=== PATIENT | female | born 1970 | race Caucasian/White ===

== ENCOUNTER → 2019-04-14 | Outpatient (CLI) | payer SELFPAY ==
[~2019-04-14] MED LIST: CATHETER FLUSH 10 ML SYR IV PRN; HOLD METFORMIN - RECEIVED CONTRAST 20 ML VIAL IV SCH; IOHEXOL 350 MG/ML 100 ML (OMNIPAQUE 350) VIAL IV ONE; NS 100 ML (IVPB) BAG IV ONE
--- NOTE | 2019-04-14 14:15 | Diagnostic Imaging Report ---
PROCEDURE: CT abdomen with and without contrast. TECHNIQUE: Multiple contiguous axial CT images of the abdomen were obtained prior to and after intravenous administration of iodinated contrast. Auto Exposure Controls were utilized during the CT exam to meet ALARA standards for radiation dose reduction. INDICATION: Liver mass found on outside ultrasound. Patient also complains of generalized abdominal pain. COMPARISON: No prior studies are available for comparison. FINDINGS: The lung bases are clear apart from minimal scarring or atelectasis in the right middle lobe and lingula. Liver demonstrates some generalized low density consistent with hepatic steatosis. Left lobe of the liver does show hyperdense lesion measuring 7 mm in size. Right lobe anteriorly contains a 10 mm hyperdense lesion. More inferiorly in the posterior right lobe there is a 9 mm hyperdense lesion. These become isodense to the liver on the delayed images and are not well visualized on precontrast images. These are most suggestive of flash filling hemangiomas. Gallbladder is surgically absent. No biliary ductal dilatation seen. The pancreas and spleen are unremarkable. No adrenal mass is detected. Kidneys are unremarkable. Aorta is calcified but nonaneurysmal. There is no ascites. Bowel loops are normal in caliber. There is no lymphadenopathy. IMPRESSION: 1. Hepatic steatosis. 2. There are three small hyperdense lesions within the liver seen on arterial phase imaging and become isodense to the liver on delayed imaging and suggestive of flash filling hemangiomas. No other suspicious abnormality is detected. Dictated by: Dictated on workstation # [id number]
== END ==
LOC: RAD FS 11:30
PROVIDERS: ATTEND Family Medicine
DX: K76.0 Fatty (change of) liver, not elsewhere classified (principal); Z90.49 Acquired absence of other specified parts of digestive tract
CPT/HCPCS: 74170

== ENCOUNTER 2019-05-15 09:00 | Outpatient (CLI) | payer OTHER ==
[~2019-05-15] VITALS: Ht 170.2 cm; Wt 73.5 kg
[2019-05-15] MEDS ORDERED: DIAZ2TAB2 PO (09:23)
[2019-05-15] MEDS ORDERED: METO50TA15 PO (09:23)
[2019-05-15] MEDS ORDERED: PROM25TA14 PO (09:23)
[2019-05-15] MEDS ORDERED: RT-ALBUINH INH (09:23)
[2019-05-15] MEDS ORDERED: GABA-488 PO (09:23)
[2019-05-15] MEDS ORDERED: CYCL10TA9 PO (09:23)
== END 2019-05-15 09:24 | disposition home or self-care (01) ==
LOC: PREOP 09:00
PROVIDERS: ATTEND Surgery
DX: Z01.818 Encounter for other preprocedural examination (principal)

== ENCOUNTER 2019-05-19 06:34 | Day surgery (SDC) | payer SELFPAY ==
[~2019-05-19] VITALS: Ht 170.2 cm; Wt 73.5 kg
[2019-05-19] VITALS (10 sets, daily range): BP systolic 114–136; BP diastolic 71–95
[~2019-05-19 06:34] MED LIST changes: -CATHETER FLUSH 10 ML SYR IV PRN; +CYCL10TA9 PO; +DIAZ2TAB2 PO; +GABA-488 PO; -HOLD METFORMIN - RECEIVED CONTRAST 20 ML VIAL IV SCH; -IOHEXOL 350 MG/ML 100 ML (OMNIPAQUE 350) VIAL IV ONE; +METO50TA15 PO; -NS 100 ML (IVPB) BAG IV ONE; +PROM25TA14 PO; +RT-ALBUINH INH
[2019-05-19] MEDS ORDERED: LACTATED RINGERS 1,000 ML IV STA (07:07)
[2019-05-19] MEDS ORDERED: PROPOFOL INJECTION 50 ML IV ONE (07:10)
[2019-05-19] MEDS ORDERED: MIDAZOLAM 2 MG/2 ML (VERSED) VIAL ONE (07:11)
[2019-05-19] MEDS ORDERED: LIDOCAINE PF 2% 5 ML (XYLOCAINE) VIAL ONE (07:11)
[2019-05-19] MEDS ORDERED: fentaNYL INJECTION 100 MCG/2 ML AMP ONE (07:12)
[2019-05-19] MEDS ORDERED: LACTATED RINGERS 1,000 ML IV ONE (07:13)
[2019-05-19] MEDS ORDERED: HURRICAINE EXT TUBE (BENZOCAINE) XX PRN (07:15)
--- NOTE | 2019-05-19 08:27 | Progress Note-Pre Operative ---
Pre-Operative Progress Note H&P Reviewed The H&P was reviewed, patient examined and no changes noted. Time Seen by Provider: 08:15 Date H&P Reviewed: May 19, 2019 Time H&P Reviewed: 08:16 Pre-Operative Diagnosis: Gastritis, Rectal bleed CHEKO YOUNG DO May 19, 2019 08:27
--- NOTE | 2019-05-19 09:50 | Progress Note-Post Operative ---
Post-Operative Progess Note Surgeon (s)/Hospice Consultant (s) Surgeon CHEKO YOUNG DO Hospice Consultant: none Pre-Operative Diagnosis Gastritis, Rectal bleed Post-Operative Diagnosis Gastritis Esophagitis Hiatal Hernia Colon polyps Diverticula internal hemorrhoids Procedure & Operative Findings Date of Procedure 05/19/19 Procedure Performed/Findings EGD with bx Colon with snare Colon with tattoo Anesthesia Type IV sedation by ACIDIZER HELPER Estimated Blood Loss Estimated blood loss (mL): scant Specimens/Packing Specimens Removed antral bx body of stomach bx GE jxn bx Descending colon polyp Cecal polyp Transverse colon polyp CHEKO YOUNG DO May 19, 2019 09:50
--- NOTE | 2019-05-19 09:53 | Endoscopy Discharge Instruct ---
Endo Procedure/Findings Findings 1.: Hiatal Hernia, Gastritis 2.: Polyp 3.: Diverticulosis 4.: Internal Hemorrhoids Discharge Instructions - Activity: You might feel a little sleepy until tomorrow. This is due to the medicine you received to relax you. Until tomorrow, you should: NOT drive a car, operate machinery or power tools. NOT drink any alcoholic beverages. NOT make any important decisions or sign importortant papers. Do not return to work until tomorrow, unless otherwise instructed. Resume previous activities tomorrow. Diet: Start by taking liquids. If you tolerate liquids, advance to solid food. Make an appointment for 2 weeks Instructions: 1.: Colonoscopy in 1 year, EGD in 6-8 weeks Notify Physician - If you experience excessive bleeding, unusual abdominal pain, fever, or chest pain, contact your doctor immediately. Follow-Up: - I have received and understand the above instructions and will call my doctor if I have any further questions. Patient Signature Date Nurse Signature Other (Relationship) CHEKO YOUNG DO May 19, 2019 09:53
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
--- OUTSIDE RECORDS SUMMARY | 2019-05-19 17:18 | XMS REPORT ---
Author Author KRISTIE ROBERTSON Organization [facility] Address [address] [place] [address] Care Team Providers Care Histology Technologist Name Role Phone KRISTIE ROBERTSON Unavailable PROBLEMS Type Condition ICD9-CM Code SRU34-IW Code Onset Dates Condition Status SNOMED Code Problem Anxiety F41.9 Active 32537258 Problem Essential hypertension I10 Active 79795031 Problem Other ulcerative colitis without complication K51.80 Active 79506941 ALLERGIES No Information ENCOUNTERS Encounter Location Date Diagnosis [facility] [address] [place] [address] May, [facility] [address] [place] [address] May, Anxiety F41.9 [facility] [address] [place] [address] May, [facility] [address] [place] [address] May, [address] [address] Apr, [address] [address] Apr, Other ulcerative colitis without complication K51.80 [facility] [address] [place] [address] Apr, [facility] [place] [address] Apr, [facility] [address] [place] [address] Apr, Other ulcerative colitis without complication K51.80 and Right upper quadrant abdominal pain R10.11 [facility] [place] [address] [place] [address] Apr, [facility] [place] [address] [place] [address] Apr, [facility] [address] [address] Apr, [facility] [address] [address] Apr, [facility] [address] [address] Apr, [facility] [place] [address] [place] [address] Mar, [facility] [address] [address] Mar, [facility] [place] [address] [place] [address] February, [facility] [address] [address] February, Bronchitis J40 [facility] [address] [address] Nov, [facility] [address] [address] Oct, [address] [address] Sep, Essential hypertension I10 [address] [address] Sep, Tachycardia R00.0 ; Essential hypertension I10 and B12 deficiency E53.[address] [address] Sep, [address] [address] Aug, [address] [address] 18 Jun, 2017 Cough R05 and Bronchitis J40 [address] [address] Jun, [address] [address] May, Acute medial meniscus tear of right knee, initial encounter S83.241A [address] [address] May, [address] [address] Apr, [facility] [address] [facility] [id number] [place] [address] Apr, [facility] [place] [address] [place] [address] Apr, Right medial knee pain M25.561 [facility] [place] [address] [place] [address] Mar, [facility] [place] [address] [place] [address] February, [facility] [place] [address] [place] [address] Jan, [facility] [place] [address] [place] [address] Jan, [facility] [place] [address] [place] [address] Jan, Other ulcerative colitis without complication K51.80 ; Irritable bowel syndrome with constipation K58.1 ; Anxiety F41.9 and Essential hypertension I10 [facility] [place] [address] [place] [address] Dec, [facility] [place] [address] [place] [address] Dec, [facility] [place] [address] [place] [address] Dec, [facility] [place] [address] [place] [address] Nov, [facility] [place] [address] [place] [address] Nov, [facility] [place] [address] [place] [address] Nov, [facility] [place] [address] [place] [address] Nov, [facility] [place] [address] [place] [address] Nov, [facility] [place] [address] [place] [address] Nov, [facility] [place] [address] [place] [address] Oct, [facility] [place] [address] [place] [address] Oct, Other ulcerative colitis without complication K51.80 ; Irritable bowel syndrome with constipation K58.1 and Pneumonia of left lung due to infectious organism, unspecified part of lung J18.9 [facility] [address] [facility] [place] [id number] [place] [id number] Oct, [facility] [place] [address] [place] [address] Oct, [facility] [address] [place] [address] Sep, [facility] [address] [facility] [id number] [place] [address] Aug, Acute bilateral low back pain without sciatica M54.5 [facility] [place] [address] [place] [address] Aug, [facility] [place] [address] [place] [address] Jul, [facility] [place] [address] [place] [address] Jun, [facility] [place] [address] [place] [address] Jun, [facility] [place] [address] [place] [address] 14 Jun, 2016 [facility] [place] [address] [place] [address] Jun, [facility] [place] [address] May, Major depressive disorder, single episode, unspecified F32.9 ; Other ulcerative colitis without complication K51.80 and Osteoporosis M81.0 [facility] [place] [address] [place] [address] May, [facility] [place] [address] [place] [address] Apr, [facility] [place] [address] [place] [address] Mar, [facility] [place] [address] [place] [address] February, [facility] [place] [address] [place] [address] Jan, [facility] [place] [address] [place] [address] Jan, [address] [address] Jan, Major depressive disorder, single episode, unspecified F32.9 ; Other ulcerative colitis without complication K51.80 ; Pharyngitis, unspecified etiology J02.9 and Essential hypertension with goal blood pressure less than 140\/[address] [address] Jan, [address] [address] Jan, [address] [address] Dec, [address] [address] Dec, Constipation K59.00 ; Nausea R11.0 and Encounter for therapeutic drug level monitoring Z51.[address] [address] Nov, [address] [address] Nov, [address] [address] Oct, [address] [address] Sep, [address] [address] Aug, [address] [address] Aug, [address] [address] Aug, Chest pain, unspecified chest pain type R07.[address] [address] Jul, [address] [address] Jul, [address] [address] Jul, [address] [address] Jul, Encounter for immunization Z23 [address] [place] [address] Jun, [facility] [place] [address] [place] [address] May, [facility] [place] [address] [place] [address] May, [facility] [place] [address] [place] [address] Apr, [facility] [place] [address] [place] [address] Mar, Sacroiliac joint pain 724.6 and Weight gain 783.1 [facility] [place] [address] [place] [address] Mar, [facility] [place] [address] [place] [address] Mar, [facility] [place] [address] [place] [address] February, [facility] [address] [address] Jan, [facility] [address] [id number] [address] Jan, [facility] [place] [address] [place] [address] Dec, [facility] [place] [address] [place] [address] Dec, [facility] [address] [address] Dec, [facility] [address] [id number] [address] Dec, [facility] [place] [address] [place] [address] Dec, [facility] [address] [place] [address] Dec, [facility] [place] [address] [place] [address] Dec, [facility] [address] [id number] [address] Dec, [facility] [place] [address] [place] [address] Nov, 2014 [facility] [address] [id number] [address] Nov, 2014 [facility] [address] [id number] [address] Nov, 2014 [facility] [place] [address] [place] [address] Nov, 2014 [facility] [place] [address] [place] [address] Nov, [facility] [address] [id number] [address] Nov, 2014 [facility] [place] [address] [place] [address] Oct, [facility] [place] [address] [place] [address] Oct, [facility] [address] [place] [address] Oct, [facility] [address] [id number] [address] Oct, [facility] [place] [address] [place] [address] Sep, [facility] [address] [place] [address] Sep, [facility] [place] [address] [place] [address] Sep, [facility] [address] [id number] [address] Sep, [facility] [place] [address] [place] [address] Sep, [facility] [address] [id number] [address] Sep, [facility] [place] [address] [place] [address] Jul, [facility] [address] [id number] [address] Jul, [facility] [address] [facility] [id number] [place] [address] Jan, [facility] [address] [id number] [address] Jan, [facility] [address] [place] [address] Dec, [facility] [address] [facility] [id number] [place] [address] Dec, [facility] [address] [place] [address] Oct, [facility] [address] [facility] [id number] [place] [address] Oct, IMMUNIZATIONS No Known Immunizations SOCIAL HISTORY [...]
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
--- OUTSIDE RECORDS SUMMARY | 2019-05-19 17:19 | XMS REPORT ---
Author ANJEL Oneal Organization [employer] Address Unknown Phone Unavailable Care Team Providers Care Alumni Relations Coordinator Name Role Phone ANJEL MCDUFFIE CP Unavailable Allergies No Known Allergies Problems Problem Type Condition Code Onset Dates Condition Status Problem Intestinal infection due to other organism, NEC 008.8 Active Problem Headache 784.0 Active Problem Acute sinusitis, unspecified 461.9 Active Problem Depressive disorder, not elsewhere classified 311 Active Problem 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 Active Problem Anxiety state, unspecified 300.00 Active Problem Chest pain, unspecified 786.50 Active Problem Palpitations 785.1 Active Problem Other malaise and fatigue 780.79 Active Problem Mononeuritis of unspecified site 355.9 Active Problem Nondependent tobacco use disorder 305.1 Active Problem Nausea with vomiting 787.01 Active Problem Acute upper respiratory infections of unspecified site 465.9 Active Problem Counseling on substance use and abuse V65.42 Active Problem Sciatica 724.3 Active Problem Fever, unspecified 780.60 Active Medications No Known Medications Results No Known Results Summary Purpose [employer] Submission
--- OUTSIDE RECORDS SUMMARY | 2019-05-19 17:19 | XMS REPORT ---
Author Author KRISTIE ROBERTSON Organization [facility] [place] Address [address] [place] [address] Care Team Providers Care Medical Assistant Supervisor Name Role Phone KRISTIE ROBERTSON Unavailable PROBLEMS Type Condition ICD9-CM Code QAC87-JY Code Onset Dates Condition Status SNOMED Code Problem Anxiety F41.9 Active 40257215 Problem Essential hypertension I10 Active 86884530 Problem Other ulcerative colitis without complication K51.80 Active 74424525 ALLERGIES No Information ENCOUNTERS Encounter Location Date Diagnosis [facility] [place] [address] [facility] [address] [id number] [place] [id number] Mar, [facility] [place] [address] [facility] [address] [id number] [place] [id number] Mar, [facility] [place] [address] [place] [address] [address] [id number] [place] [id number] February, [facility] [place] [address] [facility] [address] [id number] [place] [id number] February, Bronchitis J40 [facility] [place] [address] [place] [address] [address] [id number] [place] [id number] Nov, [facility] [place] [address] [facility] [address] [id number] [place] [address] Oct, [facility] [place] [address] [facility] [address] [id number] [place] 0[address] Sep, Essential hypertension I10 [facility] [place] [address] [facility] [address] [id number] [place] [address]3676 Sep, Tachycardia R00.0 ; Essential hypertension I10 and B12 deficiency E53.8 [facility] [place] [address] [facility] [address] [id number] [place] 034406461 Sep, [facility] [place] [address] [facility] [address] [id number] [place] [address] Aug, [facility] [place] [address] [facility] [address] [id number] [place] [id number] 18 Jun, 2017 Cough R05 and Bronchitis J40 [facility] [place] [address] [facility] [address] [id number] [place] 393807193 Jun, [facility] [place] [address] [facility] [address] [id number] [place] [id number] May, Acute medial meniscus tear of right knee, initial encounter S83.241A [facility] [place] [address] [facility] [address] [id number] [place] [address]198[address] May, [facility] [place] [address] [facility] [address] [id number] [place] [id number] Apr, [facility] [place] [address] [facility] [id number] [place] [address] Apr, [facility] [place] [address] [facility] [address] [id number] [place] 288216001 Apr, Right medial knee pain M25.561 [facility] [place] [address] [facility] [address] [id number] [place] 965657824 Mar, [facility] [place] [address] [facility] [address] [id number] [place] 485534952 February, [facility] [place] [address] [facility] [address] [id number] [place] 610572478 Jan, [facility] [place] [address] [facility] [address] [id number] [place] 920788030 Jan, [facility] [place] [address] [facility] [address] [id number] [place] 740541616 Jan, Other ulcerative colitis without complication K51.80 ; Irritable bowel syndrome with constipation K58.1 ; Anxiety F41.9 and Essential hypertension I10 [facility] [place] [address] [facility] [address] [id number] [place] 917256395 Dec, [facility] [place] [address] [facility] [address] [id number] [place] 358842197 Dec, [facility] [place] [address] [facility] [address] [id number] [place] 289944574 Dec, [facility] [place] [address] [facility] [address] [id number] [place] 837488960 Nov, [facility] [place] [address] [facility] [address] [id number] [place] 097743850 Nov, [facility] [place] [address] [facility] [address] [id number] [place] 782234378 Nov, [facility] [place] [address] [facility] [address] [id number] [place] 113558573 Nov, [facility] [place] [address] [facility] [address] [id number] [place] 641045035 Nov, [facility] [place] [address] [facility] [address] [id number] [place] [id number] Nov, [facility] [place] [address] [facility] [address] [id number] [place] 460452118 Oct, [facility] [place] [address] [facility] [address] [id number] [place] 933862254 Oct, Other ulcerative colitis without complication K51.80 ; Irritable bowel syndrome with constipation K58.1 and Pneumonia of left lung due to infectious organism, unspecified part of lung J18.9 [facility] [address] [facility] [id number] [place] 484246333 Oct, [facility] [place] [address] [facility] [address] [id number] [place] 897367967 Oct, [facility] [place] [address] [facility] [address] [id number] [place] [id number] Sep, [facility] [place] [address] [facility] [id number] [place] [address] Aug, Acute bilateral low back pain without sciatica M54.5 [facility] [place] [address] [facility] [address] [id number] [place] 345956054 Aug, [facility] [place] [address] [facility] [address] [id number] [place] 278101244 Jul, [facility] [place] [address] [facility] [address] [id number] [place] 600816456 Jun, [facility] [place] [address] [facility] [address] [id number] [place] 432043700 Jun, [facility] [place] [address] [facility] [address] [id number] [place] 087673308 Jun, [facility] [place] [address] [facility] [address] [id number] [place] 052809407 Jun, [facility] [place] [address] [facility] [address] [id number] [place] [id number] May, Major depressive disorder, single episode, unspecified F32.9 ; Other ulcerative colitis without complication K51.80 and Osteoporosis M81.0 [facility] [place] [address] [facility] [address] [id number] [place] 894553553 May, [facility] [place] [address] [facility] [address] [id number] [place] 381265976 Apr, [facility] [place] [address] [facility] [address] [id number] [place] 784281710 Mar, [facility] [place] [address] [facility] [address] [id number] [place] [id number] February, [facility] [place] [address] [facility] [address] [id number] [place] 726879118 Jan, [facility] [place] [address] [facility] [address] [id number] [place] 364707538 Jan, [facility] [place] [address] [facility] [address] [id number] [place] 095665435 Jan, Major depressive disorder, single episode, unspecified F32.9 ; Other ulcerative colitis without complication K51.80 ; Pharyngitis, unspecified etiology J02.9 and Essential hypertension with goal blood pressure less than 140\/90 I10 [facility] [place] [address] [facility] [address] [id number] [place] [id number] Jan, [facility] [place] [address] [facility] [address] [id number] [place] 813810016 Jan, [facility] [place] [address] [facility] [address] [id number] [place] [id number] Dec, [facility] [place] [address] [facility] [address] [id number] [place] 738526888 Dec, Constipation K59.00 ; Nausea R11.0 and Encounter for therapeutic drug level monitoring Z51.81 [facility] [place] [address] [facility] [address] [id number] [place] [id number] Nov, [facility] [place] [address] [facility] [address] [id number] [place] 123838505 Nov, [facility] [place] [address] [facility] [address] [id number] [place] [id number] Oct, [facility] [place] [address] [facility] [address] [id number] [place] 839682166 Sep, [facility] [place] [address] [facility] [address] [id number] [place] 908122367 Aug, [facility] [place] [address] [facility] [address] [id number] [place] 428217580 Aug, [facility] [place] [address] [facility] [address] [id number] [place] 859500666 Aug, Chest pain, unspecified chest pain type R07.9 [facility] [place] [address] [facility] [address] [id number] [place] 128536212 Jul, [facility] [place] [address] [facility] [address] [id number] [place] 767007588 Jul, [facility] [place] [address] [facility] [address] [id number] [place] [id number] Jul, [facility] [place] [address] [facility] [address] [id number] [place] 029318226 Jul, Encounter for immunization Z23 [facility] [place] [address] [facility] [address] [id number] [place], [place] 610290224 Jun, [facility] [place] [address] [facility] [address] [id number] [place] 339161744 May, [facility] [place] [address] [facility] [address] [id number] [place] 000110929 May, [facility] [place] [address] [facility] [address] [id number] [place] 422752989 Apr, [facility] [place] [address] [facility] [address] [id number] [place] 938525162 Mar, Sacroiliac joint pain 724.6 and Weight gain 783.1 [facility] [place] [address] [id number] [place] 012657034 Mar, [facility] [place] [address] [facility] [address] [id number] [place] 580031613 Mar, [facility] [place] [address] [facility] [address] [id number] [place] 983508526 February, [facility] [place] [facility] [address] [id number] [place] [address] Jan, [facility] [place] [facility] [address] [facility] [id number] [facility] [place] [address] Jan, [facility] [place] [address] [facility] [address] [id number] [place] 458297512 Dec, [facility] [place] [address] [facility] [address] [id number] [place] 923763018 Dec, [facility] [place] [facility] [address] [facility] [id number] [facility] [place] [address] Dec, [facility] [place] [facility] [address] [facility] [id number] [place] [address] Dec, [facility] [place] [address] [facility] [address] [id number] [place] 173885494 Dec, [facility] [place] [facility] [address] [facility] [id number] [facility] [place] [address] Dec, [facility] [place] [address] [facility] [address] [id number] [place] [id number] Dec, [facility] [place] [facility] [address] [facility] [id number] [facility] [place] [address] Dec, [facility] [place] [address] [facility] [address] [id number] [place] [id number] Nov, [facility] [place] [facility] [address] [facility] [id number] [place] [address] Nov, [facility] [place] [facility] [address] [facility] [id number] [place] [address] Nov, [facility] [place] [address] [facility] [address] [id number] [place] [id number] Nov, [facility] [place] [address] [facility] [address] [id number] [place] 820236723 Nov, [facility] [place] [facility] [address] [facility] [id number] [facility] [place] [address] Nov, [facility] [place] [address] [facility] [address] [id number] [place] [id number] Oct, [facility] [place] [address] [facility] [address] [id number] [place] [id number] Oct, [facility] [place] [facility] [address] [facility] [id number] [place] [address] Oct, [facility] [place] [facility] [address] [facility] [id number] [place] [address] Oct, [facility] [place] [address] [facility] [address] [id number] [place] 208543681 Sep, [facility] [place] [facility] [address] [facility] [id number] [facility] [place] [address] Sep, [facility] [place] [address] [facility] [address] [id number] [place] [id number] Sep, [facility] [place] [facility] [address] [facility] [id number] [place] [address] Sep, [facility] [place] [address] [facility] [address] [id number] [place] [id number] Sep, [facility] [place] [facility] [address] [facility] [id number] [facility] [place] [address] Sep, [facility] [place] [address] [facility] [address] [id number] [place] [id number] Jul, [facility] [place] [facility] [address] [facility] [id number] [place] [address] Jul, [facility] [place] [facility] [address] [facility] [id number] [place] [address] Jan, [facility] [address] [facility] [id number] [place] [address] Jan, [facility] [address] [facility] [address] [id number] [place] [id number] Dec, [facility] [address] [facility] [id number] [place] [address] Dec, [facility] [address] [facility] [address] [id number] [place] [id number] Oct, [facility] [address] [facility] [id number] [place] [address] Oct, IMMUNIZATIONS No Known Immunizations SOCIAL HISTORY Never Assessed REASON FOR VISIT butterfly feeling in chest PLAN OF CARE VITAL SIGNS MEDICATIONS Unknown [...]
--- OUTSIDE RECORDS SUMMARY | 2019-05-19 17:19 | XMS REPORT ---
Author Author KRISTIE ROBERTSON Organization [facility] Address [address] [place] [address] Care Team Providers Care Public Relations Sales Marketing Name Role Phone KRISTIE ROBERTSON Unavailable PROBLEMS Type Condition ICD9-CM Code AOJ07-YS Code Onset Dates Condition Status SNOMED Code Problem Anxiety F41.9 Active 37673405 Problem Essential hypertension I10 Active 25484761 Problem Other ulcerative colitis without complication K51.80 Active 52250083 ALLERGIES No Information ENCOUNTERS Encounter Location Date Diagnosis [facility] [address] [place] [address] May, [facility] [address] [place] [address] Apr, [facility] [place] [address] [place] [address] Apr, Other ulcerative colitis without complication K51.80 [facility] [address] [place] [address] Apr, [facility] [place] [address] [place] [address] Apr, [address] [address] Apr, Other ulcerative colitis without complication K51.80 and Right upper quadrant abdominal pain R10.11 [facility] [address] [place] [address] Apr, [facility] [address] [place] [address] [place] [address] Apr, [facility] [place] [address] [place] [address] Apr, [facility] [place] [address] Apr, [facility] [place] [address] [place] [address] Apr, [address] [address] Mar, [facility] [place] [address] [place] [address] Mar, [facility] [address] [place] [address] February, [facility] [place] [address] February, Bronchitis J40 [facility] [address] [address] Nov, [facility] [place] [address] Oct, [facility] [address] [address] Sep, Essential hypertension I10 [facility] [address] [address] Sep, Tachycardia R00.0 ; Essential hypertension I10 and B12 deficiency E53.8 [facility] [address] [address] Sep, [facility] [address] [address] Aug, [facility] [address] [address] Jun, Cough R05 and Bronchitis J40 [facility] [address] [address] Jun, [facility] [address] [address] May, Acute medial meniscus tear of right knee, initial encounter S83.241A [facility] [address] [address] May, [facility] [address] [address] Apr, [facility] [address] [facility] [id number] [place] [address] Apr, [facility] [address] [address] Apr, Right medial knee pain M25.561 [facility] [address] [address] Mar, [facility] [place] [address] [place] [address] February, [facility] [place] [address] [place] [address] Jan, [facility] [place] [address] [place] [address] Jan, [facility] [place] [address] [place] [address] Jan, Other ulcerative colitis without complication K51.80 ; Irritable bowel syndrome with constipation K58.1 ; Anxiety F41.9 and Essential hypertension I10 [facility] [place] [address] [place] [address] Dec, [facility] [place] [address] [place] [address] Dec, [facility] [place] [address] [place] [address] Dec, [facility] [place] [address] [place] [address] Nov, [facility] [place] [address] [place] [address] Nov, [facility] [place] [address] [place] [address] Nov, [facility] [place] [address] [place] [address] Nov, [facility] [place] [address] [place] [address] Nov, [facility] [place] [address] [place] [address] Nov, [facility] [place] [address] [place] [address] Oct, [facility] [place] [address] [place] [address] Oct, Other ulcerative colitis without complication K51.80 ; Irritable bowel syndrome with constipation K58.1 and Pneumonia of left lung due to infectious organism, unspecified part of lung J18.[address] [id number] [place] 3904[address] Oct, [facility] [place] [address] [place] [address] Oct, [facility] [address] [place] [address] Sep, [facility] [address] [facility] [id number] [place] [address] Aug, Acute bilateral low back pain without sciatica M54.5 [facility] [address] [place] [address] Aug, [facility] [address] [place] [address] Jul, [facility] [address] [place] [address] Jun, [facility] [address] [place] [address] Jun, [facility] [address] [place] [address] 14 Jun, 2016 [facility] [address] [place] [address] Jun, [facility] [address] [place] [address] May, Major depressive disorder, single episode, unspecified F32.9 ; Other ulcerative colitis without complication K51.80 and Osteoporosis M81.0 [facility] [address] [place] [address] May, [facility] [address] [place] [address] Apr, [facility] [address] [place] [address] Mar, [facility] [address] [place] [address] February, [facility] [address] [place] [address] Jan, [facility] [address] [place] [address] Jan, [address] [address] Jan, Major depressive disorder, single episode, unspecified F32.9 ; Other ulcerative colitis without complication K51.80 ; Pharyngitis, unspecified etiology J02.9 and Essential hypertension with goal blood pressure less than 140\/90 I10 [facility] [address] [place] [address] Jan, [facility] [place] [address] [place] [address] Jan, [facility] [place] [address] [place] [address] Dec, [facility] [address] [place] [address] Dec, Constipation K59.00 ; Nausea R11.0 and Encounter for therapeutic drug level monitoring Z51.81 [facility] [place] [address] [place] [address] Nov, [facility] [place] [address] [place] [address] Nov, [facility] [place] [address] [place] [address] Oct, [facility] [place] [address] [place] [address] Sep, [facility] [place] [address] [place] [address] Aug, [facility] [place] [address] [place] [address] Aug, [facility] [place] [address] [place] [address] Aug, Chest pain, unspecified chest pain type R07.9 [facility] [address] [place] [address] Jul, [facility] [place] [address] [place] [address] Jul, [facility] [place] [address] [place] [address] Jul, [facility] [place] [address] [place] [address] Jul, Encounter for immunization Z23 [facility] [address] [place] [address] Jun, [facility] [place] [address] [place] [address] May, [facility] [place] [address] [place] [address] May, [facility] [place] [address] [place] [address] Apr, [facility] [place] [address] [place] [address] Mar, Sacroiliac joint pain 724.6 and Weight gain 783.1 [facility] [place] [address] [place] [address] Mar, [facility] [place] [address] [place] [address] Mar, [facility] [place] [address] [place] [address] February, [facility] [place] [facility] [address] [id number], [place] [address] Jan, [facility] [place] [facility] [address], [place] [address] Jan, [facility] [place] [address] [place] [address] Dec, [facility] [place] [address] [place] [address] Dec, [facility] [place] [facility] [address] [id number], [place] [address] Dec, [facility] [place] [facility] [address], [place] [address] Dec, [facility] [place] [address] [place] [address] Dec, [facility] [place] [facility] [address] [id number], [place] [address] Dec, [facility] [place] [address] [place] [address] Dec, [facility] [place] [facility] [address] [id number], [place] [address] Dec, [facility] [place] [address] [place] [address] Nov, [facility] [place] [facility] [address], [place] [address] Nov, [facility] [place] [facility] [address], [place] [address] Nov, 2014 [facility] [address] [place] [address] Nov, [facility] [address] [facility] [place] [address] Nov, [facility] [address] [id number] [address] Nov, [facility] [address] [place] [address] Oct, [facility] [address] [place] [address] Oct, [facility] [id number], [place] [address] Oct, [facility] [id number], [place] [address] Oct, [facility] [address] [place] [address] Sep, [facility] [id number], [place] [address] Sep, [facility] [address] [place] [address] Sep, [facility] [id number], [place] [address] Sep, [facility] [address] [place] [address] Sep, [facility] [id number], [place] [address] Sep, [facility] [address] [place] [address] Jul, [facility] [id number], [place] [address] Jul, [facility] [address] [id number], [place] [address] Jan, [facility] [id number], [place] [address] Jan, [facility] [address] [place] [address] Dec, [facility] [address] [facility] [id number] [address] Dec, [facility] [address] [place] [address] Oct, [facility] [address] [facility] [id number], [place] [address] Oct, IMMUNIZATIONS No Known Immunizations SOCIAL HISTORY Never Assessed REASON FOR VISIT PLAN OF CARE VITAL SIGNS MEDICATIONS Medication Instructions Dosage Frequency Start Date End Date Duration Status Proventil HFA 108 (90 Base) MCG/ACT Inhalation every 6 hrs 2 puffs as needed February, Active RESULTS No Results PROCEDURES No Known [...]
--- OUTSIDE RECORDS SUMMARY | 2019-05-19 17:19 | XMS REPORT ---
Author Author KRISTIE ROBERTSON Organization [facility] Address [address] [place] [address] Care Team Providers Care Cat Tender Name Role Phone KRISTIE ROBERTSON Unavailable PROBLEMS Type Condition ICD9-CM Code [id number] Code Onset Dates Condition Status SNOMED Code Problem Anxiety F41.9 Active 80313693 Problem Essential hypertension I10 Active 32053039 Problem Other ulcerative colitis without complication K51.80 Active 40626045 ALLERGIES No Information ENCOUNTERS Encounter Location Date Diagnosis [facility] [address] [place] [address] May, Anxiety F41.9 [facility] [address] [place] [address] May, [address] [address] May, [address] [address] Apr, [address] [address] Apr, Other ulcerative colitis without complication K51.80 [facility] [address] [place] [address] Apr, [address] [address] Apr, [address] [address] Apr, Other ulcerative colitis without complication K51.80 and Right upper quadrant abdominal pain R10.11 [facility] [address] [place] [address] Apr, [address] [address] Apr, [facility] [address] [place] [address] Apr, [facility] [address] [address] Apr, [facility] [address] [place] [address] Apr, [facility] [address] [address] Mar, [facility] [address] [address] Mar, [facility] [address] [place] [address] February, [facility] [address] [address] February, Bronchitis J40 [facility] [address] [address] Nov, [facility] [address] [address] Oct, [address] [address] Sep, Essential hypertension I10 [address] [address] Sep, Tachycardia R00.0 ; Essential hypertension I10 and B12 deficiency E53.[address] [address] Sep, [address] [address] Aug, [address] [address] 18 Jun, 2017 Cough R05 and Bronchitis J40 [address] [address] Jun, [address] [address] May, Acute medial meniscus tear of right knee, initial encounter S83.241A [address] [address] May, [address] [address] Apr, [facility] [address] [facility] [id number] [place] [address] Apr, [address] [place] [address] Apr, Right medial knee pain M25.561 [facility] [place] [address] [place] [address] Mar, [facility] [place] [address] [place] [address] February, [facility] [place] [address] [place] [address] Jan, [facility] [place] [address] [place] [address] Jan, [facility] [place] [address] [place] [address] Jan, Other ulcerative colitis without complication K51.80 ; Irritable bowel syndrome with constipation K58.1 ; Anxiety F41.9 and Essential hypertension I10 [facility] [place] [address] [place] [address] Dec, [facility] [place] [address] [place] [address] Dec, [facility] [place] [address] [place] [address] Dec, [facility] [place] [address] [place] [address] Nov, [facility] [place] [address] [place] [address] Nov, [facility] [place] [address] [place] [address] Nov, [facility] [place] [address] [place] [address] Nov, [facility] [place] [address] [place] [address] Nov, [facility] [place] [address] [place] [address] Nov, [facility] [place] [address] [place] [address] Oct, [facility] [place] [address] [place] [address] Oct, Other ulcerative colitis without complication K51.80 ; Irritable bowel syndrome with constipation K58.1 and Pneumonia of left lung due to infectious organism, unspecified part of lung J18.9 [facility] [place] [address] [id number] [place] [id number] Oct, [facility] [place] [address] [place] [address] Oct, [facility] [place] [address] [place] [address] Sep, [facility] [address] [facility] [id number] [place] [address] Aug, Acute bilateral low back pain without sciatica M54.5 [facility] [place] [address] [place] [address] Aug, [facility] [place] [address] [place] [address] Jul, [facility] [place] [address] [place] [address] Jun, [facility] [place] [address] [place] [address] Jun, [facility] [place] [address] [place] [address] Jun, [facility] [place] [address] [place] [address] Jun, [facility] [place] [address] [place] [address] May, Major depressive disorder, single episode, unspecified F32.9 ; Other ulcerative colitis without complication K51.80 and Osteoporosis M81.0 [facility] [place] [address] [place] [address] May, [facility] [place] [address] [place] [address] Apr, [facility] [place] [address] [place] [address] Mar, [facility] [place] [address] [place] [address] February, [facility] [place] [address] [place] [address] Jan, [facility] [place] [address] [place] [address] Jan, [facility] [place] [address] [place] [address] Jan, Major depressive disorder, single episode, unspecified F32.9 ; Other ulcerative colitis without complication K51.80 ; Pharyngitis, unspecified etiology J02.9 and Essential hypertension with goal blood pressure less than 140\/[address] [address] Jan, [address] [address] Jan, [address] [address] Dec, [address] [address] Dec, Constipation K59.00 ; Nausea R11.0 and Encounter for therapeutic drug level monitoring Z51.[address] [address] Nov, [address] [address] Nov, [address] [address] Oct, [address] [address] Sep, [address] [address] Aug, [address] [address] Aug, [address] [address] Aug, Chest pain, unspecified chest pain type R07.[address] [address] Jul, [address] [address] Jul, [address] [address] Jul, [address] [address] Jul, Encounter for immunization Z23 [address] [address] Jun, [address] [place] [address] May, [facility] [place] [address] [place] [address] May, [facility] [place] [address] [place] [address] Apr, [facility] [place] [address] [place] [address] Mar, Sacroiliac joint pain 724.6 and Weight gain 783.1 [facility] [place] [address] [place] [address] Mar, [facility] [place] [address] [place] [address] Mar, [facility] [place] [address] [place] [address] February, [facility] [facility] [address], [place] [address] Jan, [facility] [address], [place] [address] Jan, [facility] [place] [address] [place] [address] Dec, [facility] [place] [address] [place] [address] Dec, [facility] [address], [place] [address] Dec, [facility] [place] [facility] [id number], [place] [address] Dec, [facility] [place] [address] [place] [address] Dec, [facility] [address] [id number], [place] [address] Dec, [facility] [place] [address] [place] [address] Dec, [facility] [id number], [place] [address] Dec, [facility] [place] [address] [place] [address] Nov, 2014 [facility] [address] [id number], [place] [address] Nov, 2014 [facility] [address] [id number], [place] [address] Nov, 2014 [facility] [place] [address] [place] [address] Nov, 2014 [facility] [place] [address] [place] [address] Nov, 2014 [facility] [address] [id number], [place] [address] Nov, [facility] [place] [address] [place] [address] Oct, [facility] [place] [address] [place] [address] Oct, [facility] [address], [place] [address] Oct, [facility] [address], [place] [address] Oct, [facility] [place] [address] [place] [address] Sep, [facility] [address], [place] [address] Sep, [facility] [place] [address] [place] [address] Sep, [facility] [id number], [place] [address] Sep, [facility] [place] [address] [place] [address] Sep, [facility] [address], [place] [address] Sep, [facility] [place] [address] [place] [address] Jul, [facility] [address] [id number], [place] [address] Jul, [facility] [address] [facility] [id number], [place] [address] Jan, [facility] [address] [facility] [id number], [place] [address] Jan, [facility] [address] [place] [address] Dec, [facility] [address] [facility] [id number], [place] [address] Dec, [facility] [address] [place] [address] Oct, [facility] [address] [facility] [id number], [place] [address] Oct, IMMUNIZATIONS No Known Immunizations SOCIAL HISTORY Never Assessed REASON FOR VISIT controlled refill request PLAN OF CARE VITAL SIGNS MEDICATIONS Unknown [...]
--- OUTSIDE RECORDS SUMMARY | 2019-05-19 17:19 | XMS REPORT ---
Author KRISTIE Vega [facility] eClinical[employer] Address Unknown Phone Unavailable Care Team Providers Care [employer]icon[employer] Bonder Name Role Phone KRISTIE ROBERTSON CP Unavailable Allergies, Adverse Reactions, Alerts Substance Reaction Event Type Lortab Info Not Available Drug Allergy Hepatitis B Vac Recombinant Info Not Available Drug Allergy Vera-e Eye Oint Info Not Available Non Drug Allergy Bee Venom Info Not Available Non Drug Allergy Problems Problem Type Condition Code Onset Dates [...] Problem Mononeuritis of unspecified site 355.9 Active Assessment Encounter for immunization Z23 Active Problem Nondependent tobacco use disorder 305.1 Active Problem Nausea with vomiting 787.01 Active Problem Acute upper respiratory infections of unspecified site 465.9 Active Problem Counseling on substance use and abuse V65.42 Active Problem Sciatica 724.3 Active Problem Fever, unspecified 780.60 Active Medications Medication Code System Code Instructions Start Date End Date Status Dosage Diazepam [facility] [address]-90 2 MG January 20, 2015 take 1 tablet (2 mg) by oral route 2 times per day Metoprolol Tartrate [facility] 28290197100 100MG take 1 tablet (100 mg) by oral route once daily with a meal Cyclobenzaprine HCl [facility] [address]-15 10 MG 1-2 times a day 1 tablet Fluoxetine HCl [facility] 27228606847 20MG TAKE ONE CAPSULE BY MOUTH ONCE DAILY. Gabapentin [facility] 89412603929 300 MG take 1 capsule by Oral route 2 times per day Procedures Procedure Coding System Code Date SINGLE IMMUNIZATION ADMIN CPT-4 52500 Aug 13, 2015 FLUARIX QUAD (3 & UP)-[facility]-2014 CPT-4 89974 Aug 13, 2015 Results No Known Results Immunizations Vaccine Administration Date FLUARIX QUAD (3 & UP)-[employer]-2014Aug 13, 2015 Summary Purpose eClinicalWorks Submission
--- OUTSIDE RECORDS SUMMARY | 2019-05-19 17:19 | XMS REPORT ---
Author Author KRISTIE ROBERSTON Organization [facility] Address [address] [place] [address] Care Team Providers Care Hospital Staff Pharmacist Name Role Phone KRISTIE ROBERTSON Unavailable PROBLEMS Type Condition ICD9-CM Code WHX28-SO Code Onset Dates Condition Status SNOMED Code Problem Anxiety F41.9 Active 24990297 Problem Essential hypertension I10 Active 66136324 Problem Other ulcerative colitis without complication K51.80 Active 58879587 ALLERGIES No Information ENCOUNTERS Encounter Location Date Diagnosis [facility] [address] [place] [address] May, [facility] [address] [place] [address] Apr, [facility] [place] [address] [place] [address] Apr, Other ulcerative colitis without complication K51.80 [facility] [address] [place] [address] Apr, [facility] [place] [address] [place] [address] Apr, [address] [address] Apr, Other ulcerative colitis without complication K51.80 and Right upper quadrant abdominal pain R10.11 [facility] [address] [place] [address] Apr, [facility] [address] [place] [address] [place] [address] Apr, [facility] [place] [address] [place] [address] Apr, [facility] [address] [address] Apr, [facility] [place] [address] [place] [address] Apr, [address] [address] Mar, [facility] [place] [address] [place] [address] Mar, [facility] [place] [address] [place] [address] February, [facility] [address] [address] February, Bronchitis J40 [facility] [address] [address] Nov, [facility] [address] [address] Oct, [facility] [address] [address] Sep, Essential hypertension I10 [facility] [address] [address] Sep, Tachycardia R00.0 ; Essential hypertension I10 and B12 deficiency E53.8 [facility] [address] [address] Sep, [facility] [address] [address] Aug, [facility] [address] [address] Jun, Cough R05 and Bronchitis J40 [facility] [address] [address] Jun, [facility] [address] [address] May, Acute medial meniscus tear of right knee, initial encounter S83.241A [facility] [address] [address] May, [facility] [address] [address] Apr, [facility] [address] [facility] [id number] [place] [address] Apr, [facility] [address] [address] Apr, Right medial knee pain M25.561 [facility] [address] [address] Mar, [facility] [place] [address] [place] [address] February, [facility] [place] [address] [place] [address] Jan, [facility] [place] [address] [place] [address] Jan, [facility] [place] [address] [place] [address] Jan, Other ulcerative colitis without complication K51.80 ; Irritable bowel syndrome with constipation K58.1 ; Anxiety F41.9 and Essential hypertension I10 [facility] [place] [address] [place] [address] Dec, [facility] [place] [address] [place] [address] Dec, [facility] [place] [address] [place] [address] Dec, [facility] [place] [address] [place] [address] Nov, [facility] [place] [address] [place] [address] Nov, [facility] [place] [address] [place] [address] Nov, [facility] [place] [address] [place] [address] Nov, [facility] [place] [address] [place] [address] Nov, [facility] [place] [address] [place] [address] Nov, [facility] [place] [address] [place] [address] Oct, [facility] [place] [address] [place] [address] Oct, Other ulcerative colitis without complication K51.80 ; Irritable bowel syndrome with constipation K58.1 and Pneumonia of left lung due to infectious organism, unspecified part of lung J18.[address] [id number] [place] [id number] Oct, [facility] [place] [address] [place] [address] Oct, [facility] [address] [place] [address] Sep, [facility] [address] [facility] [id number] [place] [address] Aug, Acute bilateral low back pain without sciatica M54.5 [facility] [address] [place] [address] Aug, [facility] [address] [place] [address] Jul, [facility] [address] [place] [address] Jun, [facility] [address] [place] [address] Jun, [facility] [address] [place] [address] 14 Jun, 2016 [facility] [address] [place] [address] Jun, [facility] [address] [place] [address] May, Major depressive disorder, single episode, unspecified F32.9 ; Other ulcerative colitis without complication K51.80 and Osteoporosis M81.0 [facility] [address] [place] [address] May, [facility] [place] [address] [place] [address] Apr, [facility] [address] [place] [address] Mar, [facility] [address] [place] [address] February, [facility] [address] [place] [address] Jan, [facility] [address] [place] [address] Jan, [address] [address] Jan, Major depressive disorder, single episode, unspecified F32.9 ; Other ulcerative colitis without complication K51.80 ; Pharyngitis, unspecified etiology J02.9 and Essential hypertension with goal blood pressure less than 140\/90 I10 [facility] [address] [place] [address] Jan, [facility] [place] [address] [place] [address] Jan, [facility] [place] [address] [place] [address] Dec, [facility] [place] [address] [place] [address] Dec, Constipation K59.00 ; Nausea R11.0 and Encounter for therapeutic drug level monitoring Z51.81 [facility] [place] [address] [place] [address] Nov, [facility] [place] [address] [place] [address] Nov, [facility] [place] [address] [place] [address] Oct, [facility] [place] [address] [place] [address] Sep, [facility] [place] [address] [place] [address] Aug, [facility] [place] [address] [place] [address] Aug, [facility] [place] [address] [place] [address] Aug, Chest pain, unspecified chest pain type R07.9 [facility] [place] [address] [place] [address] Jul, [facility] [place] [address] [place] [address] Jul, [facility] [place] [address] [place] [address] Jul, [facility] [place] [address] [place] [address] Jul, Encounter for immunization Z23 [facility] [place] [address] [place] [address] Jun, [facility] [place] [address] [place] [address] May, [facility] [place] [address] [place] [address] May, [facility] [place] [address] [place] [address] Apr, [facility] [place] [address] [place] [address] Mar, Sacroiliac joint pain 724.6 and Weight gain 783.1 [facility] [place] [address] [place] [address] Mar, [facility] [place] [address] [place] [address] Mar, [facility] [place] [address] [place] [address] February, [facility] [address] [id number], [place] [address] Jan, [facility] [address], [place] [address] Jan, [facility] [place] [address] [place] [address] Dec, [facility] [place] [address] [place] [address] Dec, [facility] [address] [id number], [place] [address] Dec, [facility] [address], [place] [address] Dec, [facility] [place] [address] [place] [address] Dec, [facility] [address] [id number], [place] [address] Dec, [facility] [place] [address] [place] [address] Dec, [facility] [address] [id number], [place] [address] Dec, [facility] [place] [address] [place] [address] Nov, [facility] [address], [place] [address] Nov, [facility] [address], [place] [address] Nov, 2014 [facility] [place] [address] [place] [address] Nov, [facility] [place] [address] [facility] [place] [address] Nov, [facility] [id number], [place] [address] Nov, [facility] [place] [address] [place] [address] Oct, [facility] [place] [address] [place] [address] Oct, [facility] [address], [place] [address] Oct, [facility] [address], [place] [address] Oct, [facility] [place] [address] [place] [address] Sep, [facility] [address], [place] [address] Sep, [facility] [place] [address] [place] [address] Sep, [facility] [address], [place] [address] Sep, [facility] [place] [address] [place] [address] Sep, [facility] [address], [place] [address] Sep, [facility] [place] [address] [place] [address] Jul, [facility] [address], [place] [address] Jul, [facility] [id number], [place] [address] Jan, [facility] [address], [place] [address] Jan, [facility] [address] [place] [address] Dec, [facility] [address] [facility] [id number] [address] Dec, [facility] [address] [place] [address] Oct, [facility] [address] [facility] [id number] [address] Oct, IMMUNIZATIONS No Known Immunizations SOCIAL HISTORY Never Assessed REASON FOR VISIT New Refill Request PLAN OF CARE VITAL SIGNS MEDICATIONS Medication Instructions Dosage Frequency Start Date End Date Duration Status Diazepam 2MG TAKE ONE TABLET BY MOUTH TWICE DAILY Active RESULTS [...]
--- OUTSIDE RECORDS SUMMARY | 2019-05-19 17:20 | XMS REPORT ---
Author KRISTIE Vega Organization [employer] Address Unknown Phone Unavailable Care Team Providers Care Bedspread Seamer Name Role Phone KRISTIE ROBERTSON CP Unavailable Allergies No Known Allergies Problems [...] Start Date End Date Status Dosage Diazepam [facility] [id number] 2MG TAKE ONE TABLET BY MOUTH TWICE DAILY. Results No Known Results Summary Purpose [employer] Submission
--- OUTSIDE RECORDS SUMMARY | 2019-05-19 17:20 | XMS REPORT ---
Author Author KRISTIE ROBERTSON [facility] Address [address] [place] [address] Care Team Providers Care Credit Collections Analyst Name Role Phone SHELDONKRISTIE ESPINOSA Unavailable PROBLEMS Type Condition ICD9-CM Code CTT26-RL Code Onset Dates Condition Status SNOMED Code Problem Anxiety F41.9 Active 10522268 Problem Essential hypertension I10 Active 83291601 Problem Other ulcerative colitis without complication K51.80 Active 03462998 ALLERGIES No Information SOCIAL HISTORY Never Assessed PLAN OF CARE VITAL SIGNS MEDICATIONS Medication Instructions Dosage Frequency Start Date End Date Duration Status Meloxicam 15MG TAKE ONE TABLET BY MOUTH ONCE DAILY Active Metoprolol Tartrate 100MG take 1 tablet (100 mg) by oral route once daily with a meal Active RESULTS No Results PROCEDURES No Known procedures IMMUNIZATIONS No Known Immunizations MEDICAL (GENERAL) HISTORY Type Description Date Medical [...]
--- OUTSIDE RECORDS SUMMARY | 2019-05-19 17:20 | XMS REPORT ---
Author Author KRISTIE ROBERTSON Organization [facility] [place] Address [address] [place] [address] Care Team Providers Care Ribber Name Role Phone KRISTIE ROBERTSON Unavailable PROBLEMS Type Condition ICD9-CM Code MLZ11-MK Code Onset Dates Condition Status SNOMED Code Problem Anxiety F41.9 Active 00698245 Problem Essential hypertension I10 Active 66506777 Problem Other ulcerative colitis without complication K51.80 Active 53419324 ALLERGIES No Information ENCOUNTERS Encounter Location Date Diagnosis [facility] [place] [address] [facility] [address] [id number] [place] [id number] Nov, [facility] [place] [address] [facility] [address] [id number] [place] [id number] Oct, [facility] [place] [address] [facility] [address] [id number] [place] [id number] Sep, Essential hypertension I10 [facility] [place] [address] [place] [address] [address] [id number] [place] [address] Sep, Tachycardia R00.0 ; Essential hypertension I10 and B12 deficiency E53.8 [facility] [place] [address] [facility] [address] [id number] [place] [id number] Sep, [facility] [place] [address] [facility] [address] [id number] [place] [address] Aug, [facility] [place] [address] [facility] [address] [id number] [place] [id number] 18 Jun, 2017 Cough R05 and Bronchitis J40 [facility] [place] [address] [facility] [address] [id number] [place] [address] Jun, [facility] [place] [address] [facility] [address] [id number] [place] [address] May, Acute medial meniscus tear of right knee, initial encounter S83.241A [facility] [place] [address] [facility] [address] [id number] [place] [id number] May, [facility] [place] [address] [facility] [address] [id number] [place] [id number] Apr, [facility] [place] [address] [facility] [id number] [place] [address] Apr, [facility] [place] [address] [facility] [address] [id number] [place] [address] Apr, Right medial knee pain M25.561 [facility] [place] [address] [facility] [address] [id number] [place] [id number] Mar, [facility] [place] [address] [facility] [address] [id number] [place] [address] February, [facility] [place] [address] [facility] [address] [id number] [place] [address] Jan, [facility] [place] [address] [facility] [address] [id number] [place] [address] Jan, [facility] [place] [address] [facility] [address] [id number] [place] [id number] Jan, Other ulcerative colitis without complication K51.80 ; Irritable bowel syndrome with constipation K58.1 ; Anxiety F41.9 and Essential hypertension I10 [facility] [place] [address] [facility] [address] [id number] [place] [address] Dec, [facility] [place] [address] [facility] [address] [id number] [place] [address] Dec, [facility] [place] [address] [facility] [address] [id number] [place] [address] Dec, [facility] [place] [address] [facility] [address] [id number] [place] [address] Nov, [facility] [place] [address] [facility] [address] [id number] [place] [id number] Nov, [facility] [place] [address] [facility] [address] [id number] [place] [address] Nov, [facility] [place] [address] [facility] [address] [id number] [place] [address] Nov, [facility] [place] [address] [facility] [address] [id number] [place] [address] Nov, [facility] [place] [address] [facility] [address] [id number] [place] [id number] Nov, [facility] [place] [address] [facility] [address] [id number] [place] [address] Oct, [facility] [place] [address] [facility] [address] [id number] [place] [address] Oct, Other ulcerative colitis without complication K51.80 ; Irritable bowel syndrome with constipation K58.1 and Pneumonia of left lung due to infectious organism, unspecified part of lung J18.9 [facility] [place] [address] [id number] [place] [id number] Oct, [facility] [place] [address] [facility] [address] [id number] [place] [id number] Oct, [facility] [place] [address] [facility] [address] [id number] [place] [address] Sep, [facility] [place] [address] [facility] [id number] [facility] [place] [address] Aug, Acute bilateral low back pain without sciatica M54.5 [facility] [place] [address] [facility] [address] [id number] [place] [address] Aug, [facility] [place] [address] [facility] [address] [id number] [place] [address] Jul, [facility] [place] [address] [facility] [address] [id number] [place] [address] Jun, [facility] [place] [address] [facility] [address] [id number] [place] [id number] Jun, [facility] [place] [address] [facility] [address] [id number] [place] [address] Jun, [facility] [place] [address] [facility] [address] [id number] [place] [address] Jun, [facility] [place] [address] [facility] [address] [id number] [place] [address] May, Major depressive disorder, single episode, unspecified F32.9 ; Other ulcerative colitis without complication K51.80 and Osteoporosis M81.0 [facility] [place] [address] [facility] [address] [id number] [place] [address] May, [facility] [place] [address] [facility] [address] [id number] [place] [address] Apr, [facility] [place] [address] [facility] [address] [id number] [place] [address] Mar, [facility] [place] [address] [facility] [address] [id number] [place] [id number] February, [facility] [place] [address] [facility] [address] [id number] [place] [address] Jan, [facility] [place] [address] [facility] [address] [id number] [place] [address] Jan, [facility] [place] [address] [facility] [address] [id number] [place] [address] Jan, Major depressive disorder, single episode, unspecified F32.9 ; Other ulcerative colitis without complication K51.80 ; Pharyngitis, unspecified etiology J02.9 and Essential hypertension with goal blood pressure less than 140\/90 I10 [facility] [place] [address] [facility] [address] [id number] [place] [address] Jan, [facility] [place] [address] [facility] [address] [id number] [place] [address] Jan, [facility] [place] [address] [facility] [address] [id number] [place] [address] Dec, [facility] [place] [address] [facility] [address] [id number] [place] [address] Dec, Constipation K59.00 ; Nausea R11.0 and Encounter for therapeutic drug level monitoring Z51.81 [facility] [place] [address] [facility] [address] [id number] [place] [address] Nov, [facility] [place] [address] [facility] [address] [id number] [place] [address]886 Nov, [facility] [place] [address] [facility] [address] [id number] [place] [address] Oct, [facility] [place] [address] [facility] [address] [id number] [place] [address] Sep, [facility] [place] [address] [facility] [address] [id number] [place] [address] Aug, [facility] [place] [address] [facility] [address] [id number] [place] [address] Aug, [facility] [place] [address] [facility] [address] [id number] [place] [address] Aug, Chest pain, unspecified chest pain type R07.9 [facility] [place] [address] [facility] [address] [id number] [place] [address] Jul, [facility] [place] [address] [facility] [address] [id number] [place] [address] Jul, [facility] [place] [address] [facility] [address] [id number] [place] [address] Jul, [facility] [place] [address] [facility] [address] [id number] [place] [address] Jul, Encounter for immunization Z23 [facility] [place] [address] [facility] [address] [id number] [place] [address] Jun, [facility] [place] [address] [facility] [address] [id number] [place] [address] May, [facility] [place] [address] [facility] [address] [id number] [place] [id number] May, [facility] [place] [address] [facility] [address] [id number] [place] [address] Apr, [facility] [place] [address] [facility] [address] [id number] [place] [address] Mar, Sacroiliac joint pain 724.6 and Weight gain 783.1 [facility] [place] [address] [facility] [address] [id number] [place] [address] Mar, [facility] [place] [address] [facility] [address] [id number] [place] 3[address] Mar, [facility] [place] [address] [facility] [address] [id number] [place] [address] February, [facility] [address] [facility] [id number] [place] [address] 14 Jan, [address] [facility] [address] [facility] [id number] [place] [address] Jan, [facility] [place] [address] [facility] [address] [id number] [place] [address] Dec, [facility] [place] [address] [facility] [address] [id number] [place] [address] Dec, [facility] [place] [facility] [address] [facility] [id number] [place] [address] Dec, [facility] [address] [facility] [id number] [place] [address] Dec, [facility] [place] [address] [facility] [address] [id number] [place] [address] Dec, [facility] [address] [facility] [id number] [place] [address] Dec, [facility] [place] [address] [facility] [address] [id number] [place] [address] Dec, [facility] [address] [facility] [id number] [place] [address] Dec, [facility] [place] [address] [facility] [address] [id number] [place] [id number] Nov, [facility] [place] [facility] [address] [facility] [id number] [place] [address] Nov, [facility] [place] [facility] [address] [facility] [id number] [place] [address] Nov, [facility] [place] [address] [facility] [address] [id number] [place] [id number] Nov, [facility] [place] [address] [facility] [address] [id number] [place] [address] Nov, [facility] [place] [facility] [address] [facility] [id number] [place] [address] Nov, [facility] [place] [address] [id number] [place] [id number] Oct, [facility] [place] [address] [facility] [address] [id number] [place] [id number] Oct, [facility] [place] [facility] [address] [id number] [place] [address] Oct, [facility] [place] [facility] [address] [id number] [place] [address] Oct, [facility] [place] [address] [facility] [address] [id number] [place] [id number] Sep, [facility] [place] [facility] [address] [id number] [place] [address] Sep, [facility] [place] [address] [facility] [address] [id number] [place] 9[address] Sep, [facility] [place] [facility] [address] [facility] [id number] [facility] [place] [address] Sep, [facility] [place] [address] [facility] [address] [id number] [place] [address] Sep, [facility] [place] [facility] [address] [id number] [place] [address] Sep, [facility] [place] [address] [facility] [address] [id number] [place], [place] [address] Jul, [facility] [place] [facility] [address] [facility] [id number] [facility] [place] [address] Jul, [facility] [place] [facility] [address] [id number] [facility] [place] [address] Jan, [facility] [place] [facility] [address] [id number] [place] [address] Jan, [facility] [place] [address] [facility] [address] [id number] [place] [id number] Dec, [facility] [place] [facility] [address] [id number] [place] [address] Dec, [facility] [place] [address] [facility] [address] [id number] [place] [id number] Oct, [facility] [address] [facility] [id number] [place] [address] Oct, IMMUNIZATIONS No Known Immunizations SOCIAL HISTORY Never Assessed REASON FOR VISIT Zorvalex PLAN OF CARE VITAL SIGNS MEDICATIONS Unknown [...]
--- OUTSIDE RECORDS SUMMARY | 2019-05-19 17:20 | XMS REPORT ---
Author Author KRISTIE ROBERTSON Organization [facility] [place] Address [address] [place] [address] Care Team Providers Care Rn Physician Office Name Role Phone KRISTIE ROBERTSON Unavailable PROBLEMS Type Condition ICD9-CM Code APW51-CT Code Onset Dates Condition Status SNOMED Code Problem Anxiety F41.9 Active 22528438 Problem Essential hypertension I10 Active 09056494 Problem Other ulcerative colitis without complication K51.80 Active 00182539 ALLERGIES Substance Reaction Event Type Date Status Lortab Unknown Drug Allergy Sep, Active Hepatitis B Vac Recombinant Unknown Drug Allergy Sep, Active Vera-e Eye Oint Unknown Non Drug Allergy Sep, Active Bee Venom Unknown Non Drug Allergy Sep, Active ENCOUNTERS Encounter Location Date Diagnosis [facility] [place] [address] [facility] [address] [id number] [place] [id number] Mar, [facility] [place] [address] [facility] [address] [id number] [place] [id number] February, [facility] [place] [address] [place] [address] [address] [id number] [place] [address] February, Bronchitis J40 [facility] [place] [address] [place] [address] [address] [id number] [place] [id number] Nov, [facility] [place] [address] [facility] [address] [id number] [place] [id number] Oct, [facility] [place] [address] [facility] [address] [id number] [place] [id number] Sep, Essential hypertension I10 [facility] [place] [address] [facility] [address] [id number] [place] [address] Sep, Tachycardia R00.0 ; Essential hypertension I10 and B12 deficiency E53.8 [facility] [place] [address] [facility] [address] [id number] [place] [id number] Sep, [facility] [place] [address] [place] [address] [address] [id number] [place] [address] Aug, [facility] [place] [address] [facility] [address] [id number] [place] [id number] 18 Jun, 2017 Cough R05 and Bronchitis J40 [facility] [place] [address] [facility] [address] [id number] [place] [address] Jun, [facility] [place] [address] [facility] [address] [id number] [place] [address] May, Acute medial meniscus tear of right knee, initial encounter S83.241A [facility] [place] [address] [facility] [address] [id number] [place] [id number] May, [facility] [place] [address] [facility] [address] [id number] [place] [address] Apr[facility] [address] [facility] [id number] [place] [address] Apr, [facility] [place] [address] [facility] [address] [id number] [place] [address] Apr, Right medial knee pain M25.561 [facility] [place] [address] [facility] [address] [id number] [place] [id number] Mar, [facility] [place] [address] [facility] [address] [id number] [place] [id number] February, [facility] [place] [address] [facility] [address] [id number] [place] [address] Jan, [facility] [place] [address] [facility] [address] [id number] [place] [address] Jan, [facility] [place] [address] [facility] [address] [id number] [place] [address] Jan, Other ulcerative colitis without complication K51.80 ; Irritable bowel syndrome with constipation K58.1 ; Anxiety F41.9 and Essential hypertension I10 [facility] [place] [address] [facility] [address] [id number] [place] [address] Dec, [facility] [place] [address] [facility] [address] [id number] [place] [address] Dec, [facility] [place] [address] [facility] [address] [id number] [place] [id number] Dec, [facility] [place] [address] [facility] [address] [id number] [place] [id number] Nov, [facility] [place] [address] [facility] [address] [id number] [place] [address] Nov, [facility] [place] [address] [facility] [address] [id number] [place] [id number] Nov, [facility] [place] [address] [facility] [address] [id number] [place] [address] Nov, [facility] [place] [address] [facility] [address] [id number] [place] [address] Nov, [facility] [place] [address] [facility] [address] [id number] [place] [address] Nov, [facility] [place] [address] [facility] [address] [id number] [place] [address] Oct, [facility] [place] [address] [facility] [address] [id number] [place] [address] Oct, Other ulcerative colitis without complication K51.80 ; Irritable bowel syndrome with constipation K58.1 and Pneumonia of left lung due to infectious organism, unspecified part of lung J18.9 [facility] [address] [facility] [id number] [place] [address] Oct, [facility] [place] [address] [facility] [address] [id number] [place] [id number] Oct, [facility] [place] [address] [facility] [address] [id number] [place] [id number] Sep, [facility] [address] [facility] [id number] [place] [address] Aug, Acute bilateral low back pain without sciatica M54.5 [facility] [place] [address] [facility] [address] [id number] [place] [address] Aug, [facility] [place] [address] [facility] [address] [id number] [place] [id number] Jul, [facility] [place] [address] [facility] [address] [id number] [place] [id number] Jun, [facility] [place] [address] [facility] [address] [id number] [place] [id number] 19 Jun, 2016 [facility] [place] [address] [facility] [address] [id number] [place] [id number] 14 Jun, 2016 [facility] [place] [address] [facility] [address] [id number] [place] [address] Jun, [facility] [place] [address] [facility] [address] [id number] [place] [address] May, Major depressive disorder, single episode, unspecified F32.9 ; Other ulcerative colitis without complication K51.80 and Osteoporosis M81.0 [facility] [place] [address] [facility] [address] [id number] [place] [id number] May, [facility] [place] [address] [facility] [address] [id number] [place] [address] Apr, [facility] [place] [address] [facility] [address] [id number] [place] [address] Mar, [facility] [place] [address] [facility] [address] [id number] [place] [address] February, [facility] [place] [address] [facility] [address] [id number] [place] [address] Jan, [facility] [place] [address] [facility] [address] [id number] [place] [address] Jan, [facility] [place] [address] [facility] [address] [id number] [place] [address] Jan, Major depressive disorder, single episode, unspecified F32.9 ; Other ulcerative colitis without complication K51.80 ; Pharyngitis, unspecified etiology J02.9 and Essential hypertension with goal blood pressure less than 140\/90 I10 [facility] [place] [address] [facility] [address] [id number] [place] [id number] Jan, [facility] [place] [address] [facility] [address] [id number] [place] [address] 06 Jan, 2016 [facility] [place] [address] [facility] [address] [id number] [place] [id number] Dec, [facility] [place] [address] [facility] [address] [id number] [place] [address] Dec, Constipation K59.00 ; Nausea R11.0 and Encounter for therapeutic drug level monitoring Z51.81 [facility] [place] [address] [facility] [address] [id number] [place] [address] Nov, [facility] [place] [address] [facility] [address] [id number] [place] [id number] Nov, [facility] [place] [address] [facility] [address] [id number] [place] [address] Oct, [facility] [place] [address] [facility] [address] [id number] [place] [address] Sep, [facility] [place] [address] [facility] [address] [id number] [place] [address] Aug, [facility] [place] [address] [facility] [address] [id number] [place], [place] [address] Aug, [facility] [place] [address] [facility] [address] [id number] [place] [id number] Aug, Chest pain, unspecified chest pain type R07.9 [facility] [place] [address] [facility] [address] [id number] [place] [address] Jul, [facility] [place] [address] [facility] [address] [id number] [place] [id number] Jul, [facility] [place] [address] [facility] [address] [id number] [place] [address] Jul, [facility] [place] [address] [facility] [address] [id number] [place] [id number] Jul, Encounter for immunization Z23 [facility] [place] [address] [facility] [address] [id number] [place] [address] Jun, [facility] [place] [address] [facility] [address] [id number] [place] [id number] May, [facility] [place] [address] [facility] [address] [id number] [place] [address] May, [facility] [place] [address] [facility] [address] [id number] [place] [address] Apr, [facility] [place] [address] [facility] [address] [id number] [place] [address] Mar, Sacroiliac joint pain 724.6 and Weight gain 783.1 [facility] [place] [address] [facility] [address] [id number] [place] [address] Mar, [facility] [place] [address] [facility] [address] [id number] [place] [address] Mar, [facility] [place] [address] [facility] [address] [id number] [place] 715101469 February, [facility] [place] [facility] [address] [facility] [id number] [place] [address] Jan, [facility] [place] [facility] [address] [facility] [id number] [place] [address] Jan, [facility] [place] [address] [facility] [address] [id number] [place] [id number] Dec, [facility] [place] [address] [facility] [address] [id number] [place] [address] Dec, [facility] [place] [facility] [address] [facility] [id number] [place] [address] Dec, [facility] [place] [facility] [address] [facility] [id number] [place] [address] Dec, [facility] [place] [address] [facility] [address] [id number] [place] [address] Dec, [facility] [place] [facility] [address] [facility] [id number] [place] [address] Dec, [facility] [place] [address] [facility] [address] [id number] [place] [id number] Dec, [facility] [place] [facility] [address] [facility] [id number] [place] [address] Dec, [facility] [place] [address] [facility] [address] [id number] [place] [id number] Nov, [facility] [place] [facility] [address] [facility] [id number] [place] [address] Nov, [facility] [place] [facility] [address] [id number] [place] [address] Nov, [facility] [place] [address] [facility] [address] [id number] [place] [id number] Nov, [facility] [place] [address] [facility] [address] [id number] [place] [address] Nov, [facility] [place] [address] [facility] [id number] [place] [address] Nov, [facility] [place] [address] [facility] [address] [id number] [place] [id number] Oct, [facility] [place] [address] [facility] [address] [id number] [place] [id number] Oct, [facility] [address] [facility] [id number] [place] [address] Oct, [facility] [address] [facility] [id number] [place] [address] Oct, [facility] [place] [address] [facility] [address] [id number] [place] [address] Sep, [facility] [address] [facility] [id number] [place] [address] Sep, [facility] [place] [address] [facility] [address] [id number] [place] [id number] Sep, [facility] [address] [facility] [id number] [place] [address] Sep, [facility] [place] [address] [facility] [address] [id number] [place] [id number] Sep, [facility] [place] [facility] [address] [facility] [id number] [place] [address] Sep, [facility] [place] [address] [facility] [address] [id number] [place] [address] Jul, [facility] [address] [facility] [id number] [place] [address] Jul, [facility] [address] [facility] [id number] [place] [address] Jan, [facility] [address] [facility] [id number] [place] [address] Jan, [facility] [place] [address] [facility] [address] [id number] [place] [address] Dec, [facility] [address] [facility] [id number] [address] Dec, [facility] [place] [address] [facility] [address] [id number] [place] [id number] Oct, [facility] [address] [facility] [id number] [address] Oct, IMMUNIZATIONS No Known Immunizations SOCIAL HISTORY Never Assessed REASON FOR VISIT Anxiety PLAN OF CARE Activity Details Follow Up prn Reason: VITAL SIGNS Height 66 in 2017-10-09 Weight 151 lbs 2017-10-09 Temperature 98.1 degrees Fahrenheit 2017-10-09 Heart Rate 82 bpm 2017-10-09 Respiratory Rate 18 2017-10-09 BMI 24.37 kg/m2 2017-10-09 Blood pressure systolic 130 mmHg 2017-10-09 Blood pressure diastolic 78 mmHg 2017-10-09 MEDICATIONS Medication Instructions Dosage Frequency Start Date End Date Duration Status Combivent Respimat 20-100 MCG/ACT Inhalation Four times a day 1 puff 6h 18 Jun, 2017 Active Gabapentin 300MG take 1 capsule by Oral route 2 times per day 30 Active Aspir-Low 81 MG Orally Once a day 1 tablet 24h Active Lexapro 10MG Orally Once a day 1 tablet 24h 90 Active MiraLax 3350 Orally Once a day dissolved in 4-8 oz of fluid Take 1-2 capful Dec, Active Meloxicam 15MG TAKE ONE TABLET BY MOUTH ONCE DAILY 30 Active Cyclobenzaprine HCl 10MG 1 tablet 15 Active Metoprolol Tartrate 100MG TAKE ONE TABLET BY MOUTH ONCE DAILY WITH A MEAL 90 Active Diazepam 2MG TAKE ONE TABLET BY MOUTH TWICE DAILY Active RESULTS No Results PROCEDURES Procedure Date Ordered Result Body Site EKG, TRACING (IN-HOUSE) 2017-10-09 N/A ELECTROCARDIOGRAM, TRACING Oct 09, 2017 COMPREHEN METABOLIC PANEL Oct 09, 2017 ASSAY THYROID STIM HORMONE Oct 09, 2017 VITAMIN B-12 Oct 09, 2017 INSTRUCTIONS MEDICATIONS ADMINISTERED No Known Medications MEDICAL [...]
--- OUTSIDE RECORDS SUMMARY | 2019-05-19 17:20 | XMS REPORT ---
Author KRISTIE Vega Organization [employer] Address Unknown Phone Unavailable Care Team Providers Care Rapid Outsole Stitcher Name Role Phone KRISTIE ROBERTSON CP Unavailable [...] Start Date End Date Status Dosage Diazepam [facility] [address]-75 2 MG January 20, 2015 take 1 tablet (2 mg) by oral route 2 times per day Results No Known Results Summary Purpose [employer] Submission
--- OUTSIDE RECORDS SUMMARY | 2019-05-19 17:20 | XMS REPORT ---
Author KRISTIE Vega [facility] [employer] Address Unknown Phone Unavailable Care Team Providers Care Title I Math Tutor Name Role Phone KRISTIE ROBERTSON CP Unavailable [...] Mononeuritis of unspecified site 355.9 Active Assessment Other ulcerative colitis without complication K51.80 Active Assessment Major depressive disorder, single episode, unspecified F32.9 Active Assessment Essential hypertension with goal blood pressure less than 140\/90 I10 Active Assessment Pharyngitis, unspecified etiology J02.9 Active Problem Nondependent tobacco use disorder 305.1 Active Problem Nausea with vomiting 787.01 Active Problem Acute upper respiratory infections of unspecified site 465.9 Active Problem Counseling on substance use and abuse V65.42 Active Problem Sciatica 724.3 Active Problem Fever, unspecified 780.60 Active Medications Medication Code System Code Instructions Start Date End Date Status Dosage Lexapro [facility] [address]-41 10 mg Orally Once a day February 02, 2016 1 tablet Diazepam [facility] [address]-58 2 MG January 20, 2015 take 1 tablet (2 mg) by oral route 2 times per day Promethazine HCl [facility] [address]-35 25 MG Orally every 12 hrs Sep 06, 2015 1 tablet as needed Meloxicam [facility] 10909387126 15MG TAKE ONE TABLET BY MOUTH ONCE DAILY MiraLax [facility] [address]-12 3350 Orally Once a day dissolved in 4-8 oz of fluid December 29, 2015 Take 1-2 capful Cyclobenzaprine HCl [facility] 79736631905 10 MG 1-2 times a day 1 tablet Metoprolol Tartrate [facility] 74664310001 100MG take 1 tablet (100 mg) by oral route once daily with a meal Aspir-Low [facility] [address]-11 81 MG Orally Once a day 1 tablet Gabapentin [facility] 68884386037 300MG take 1 capsule by Oral route 2 times per day Delzicol [facility] [address]-92 400 MG Orally Four times a day February 08, 2016 Jun 07, 2016 1 capsule Procedures Procedure Coding System Code Date STREP A ASSAY W/OPTIC CPT-4 26985 February 07, 2016 ASSAY THYROID STIM HORMONE CPT-4 99752 February 07, 2016 CULTURE, BACTERIA, OTHER CPT-4 92633 February 07, 2016 COMPREHEN METABOLIC PANEL CPT-4 22586 February 07, 2016 COMPLETE CBC W/AUTO DIFF WBC CPT-4 79741 February 07, 2016 Office Visit, Est Pt., Level 4 CPT-4 58784 February 07, 2016 VENIPUNCT, ROUTINE* CPT-4 04594 February 07, 2016 Vital Signs Date/Time: February 07, 2016 Temperature 97.5 F Weight 165.7 lbs Height 66 in BMI 26.74 Index Blood Pressure Diastolic 86 mmHg Blood Pressure Systolic 138 mmHg Cardiac Monitoring Heart Rate 76 bpm Results Name Result Date Reference Range Unit Abnormality Flag CULTURE, (EAR, NOSE, SINUS, THROAT)-SPECIFY SOURCE ----Upper Respiratory Culture Final report [id number] TSH ----TSH 1.270 [id number] 0.450-4.500 uIU/mL STREP A (IN HOUSE) ----STREP A negative [id number] ----Control valid [id number] ----Lot # [id number] ----Exp date 09/21/1720160207 ROUTINE VENIPUNCTURE CBC ----RDW 14.1 20160207 12.3-15.4 % ----MCHC 33.2 20160207 31.5-35.7 g/dL ----MCH 29.3 20160207 26.6-33.0 pg ----MCV 88 48180768 79-97 fL ----Hematocrit 39.4 93778549 34.0-46.6 % ----Hemoglobin 13.1 14243873 11.1-15.9 g/dL ----Immature Granulocytes 0 88276088 % ----RBC 4.47 45827187 3.77-5.28 x10E6/uL ----WBC 6.7 90795316 3.4-10.8 x10E3/uL ----Immature Grans (Abs) 0.0 11194717 0.0-0.1 x10E3/uL ----Eos (Absolute) 0.2 99837433 0.0-0.4 x10E3/uL ----Basos 1 71900150 % ----Baso (Absolute) 0.1 43087195 0.0-0.2 x10E3/uL ----Neutrophils (Absolute) 3.7 47406296 1.4-7.0 x10E3/uL ----Lymphs (Absolute) 2.3 52358505 0.7-3.1 x10E3/uL ----Monocytes(Absolute) 0.5 53968127 0.1-0.9 x10E3/uL ----Neutrophils 56 16065254 % ----Lymphs 34 46170341 % ----Monocytes 7 07804004 % ----Eos 2 38035828 % ----Platelets 318 69372301 150-379 x10E3/uL CMP ----Creatinine, Serum 0.71 40505499 0.57-1.00 mg/dL ----BUN 10 65490359 6-24 mg/dL ----eGFR If Africn Am 119 52612376 >59 mL/min/1.73 ----eGFR If NonAfricn Am 103 24310897 >59 mL/min/1.73 ----Sodium, Serum 141 56359359 134-144 mmol/L ----BUN/Creatinine Ratio 14 45228685 9-23 ----Chloride, Serum 100 72987458 97-108 mmol/L ----Potassium, Serum 4.2 66402284 3.5-5.2 mmol/L ----Carbon Dioxide, Total 27 19015940 18-29 mmol/L ----Protein, Total, Serum 7.0 20160207 6.0-8.5 g/dL ----Calcium, Serum 9.8 30476728 8.7-10.2 mg/dL ----Globulin, Total 2.7 63165281 1.5-4.5 g/dL ----Albumin, Serum 4.3 94626539 3.5-5.5 g/dL ----Bilirubin, Total 0.3 01340155 0.0-1.2 mg/dL ----Glucose, Serum 99 71717509 65-99 mg/dL ----A/G Ratio 1.6 66128536 1.1-2.5 ----ALT (SGPT) 28 18116109 0-32 IU/L ----Alkaline Phosphatase, S 88 69146177 39-117 IU/L ----AST (SGOT) 19 96881848 0-40 IU/L Summary Purpose eClinicalWorks Submission
--- OUTSIDE RECORDS SUMMARY | 2019-05-19 17:20 | XMS REPORT ---
Author Author [facility] ROBERTSON [facility] [place] Address [address] [place] [address] Care Team Providers Care Waste Water Worker Name Role Phone KRISTIE ROBERTSON Unavailable PROBLEMS Type Condition ICD9-CM Code CQD43-LA Code Onset Dates Condition Status SNOMED Code Problem Anxiety F41.9 Active 83741865 Problem Essential hypertension I10 Active 08354070 Problem Other ulcerative colitis without complication K51.80 Active 08076216 ALLERGIES No Information SOCIAL HISTORY Never Assessed PLAN OF CARE VITAL SIGNS MEDICATIONS Unknown [...]
--- OUTSIDE RECORDS SUMMARY | 2019-05-19 17:20 | XMS REPORT ---
Author Author KRISTIE ROBERTSON [facility] Address [address] [place] [address] Care Team Providers Care Tube Lancer Name Role Phone SHELDONKRISTIE ESPINOSA Unavailable PROBLEMS Type Condition ICD9-CM Code VBH26-QM Code Onset Dates Condition Status SNOMED Code Problem Anxiety F41.9 Active 68079009 Problem Essential hypertension I10 Active 23045950 Problem Other ulcerative colitis without complication K51.80 Active 79379885 ALLERGIES No Information SOCIAL HISTORY Never Assessed PLAN OF CARE VITAL SIGNS MEDICATIONS Medication Instructions Dosage Frequency Start Date End Date Duration Status Diazepam 2MG Orally Twice a day Take 1 tablet 12h 21 days Active RESULTS No Results PROCEDURES No Known [...]
--- OUTSIDE RECORDS SUMMARY | 2019-05-19 17:21 | XMS REPORT ---
Author ANJEL Oneal Organization [employer] Address Unknown Phone Unavailable Care Team Providers Care Rfid Engineer Name Role Phone ANJEL MCDUFFIE CP Unavailable Allergies No Known Allergies Problems Problem Type Condition ICD-9 Code Onset Dates Condition Status Problem Intestinal [...] Start Date End Date Status Dosage Diazepam [facility] [address]-23 2 MG January 20, 2015 take 1 tablet (2 mg) by oral route 2 times per day Results No Known Results Summary Purpose [employer]ClinicalWorks Submission
--- OUTSIDE RECORDS SUMMARY | 2019-05-19 17:21 | XMS REPORT ---
Author Author KRISTIE ROBERTSON Organization [facility] [place] Address [address] [place] [address] Care Team Providers Care Sales Analyst Name Role Phone KRISTIE ROBERTSON Unavailable PROBLEMS Type Condition ICD9-CM Code [id number] Code Onset Dates Condition Status SNOMED Code Problem Anxiety F41.9 Active 86467497 Problem Essential hypertension I10 Active 63005758 Problem Other ulcerative colitis without complication K51.80 Active 51986336 ALLERGIES Substance Reaction Event Type Date Status Lortab Unknown Drug Allergy Jun, Active Hepatitis B Vac Recombinant Unknown Drug Allergy Jun, Active Vera-e Eye Oint Unknown Non Drug Allergy Jun, Active Bee Venom Unknown Non Drug Allergy Jun, Active ENCOUNTERS Encounter Location Date Diagnosis [facility] [place] [address] [facility] [address] [id number] [place] [id number] Nov, [facility] [place] [address] [facility] [address] [id number] [place] [id number] Oct, [facility] [place] [address] [place] [address] [address] [id number] [place] [id number] Sep, Essential hypertension I10 [facility] [place] [address] [place] [address] C [id number] [place] [id number] Sep, Tachycardia R00.0 ; Essential hypertension I10 and B12 deficiency E53.8 [facility] [place] [address] [facility] [address] [id number] [place] [id number] Sep, [facility] [place] [address] [facility] [address] [id number] [place] [id number] Aug, [facility] [place] [address] [facility] [address] [id number] [place] [address] Jun, Cough R05 and Bronchitis J40 [facility] [place] [address] [facility] [address] [id number] [place] [address] Jun, [facility] [place] [address] [place] [address] [address] [id number] [place] [id number] May, Acute medial meniscus tear of right knee, initial encounter S83.241A [facility] [place] [address] [facility] [address] [id number] [place] [address] May, [facility] [place] [address] [facility] [address] [id number] [place] [id number] Apr, [facility] [address] [facility] [id number] [facility] [place] [address] Apr, [facility] [place] [address] [facility] [address] [id number] [place] [address] Apr, Right medial knee pain M25.561 [facility] [place] [address] [facility] [address] [id number] [place] [id number] Mar, [facility] [place] [address] [facility] [address] [id number] [place] [address] February, [facility] [place] [address] [facility] [address] [id number] [place] [id number] Jan, [facility] [place] [address] [facility] [address] [id number] [place] [address] Jan, [facility] [place] [address] [facility] [address] [id number] [place] [id number] Jan, Other ulcerative colitis without complication K51.80 ; Irritable bowel syndrome with constipation K58.1 ; Anxiety F41.9 and Essential hypertension I10 [facility] [place] [address] [facility] [address] [id number] [place] [address] Dec, [facility] [place] [address] [facility] [address] [id number] [place] [id number] Dec, [facility] [place] [address] [facility] [address] [id number] [place] [address] Dec, [facility] [place] [address] [facility] [address] [id number] [place] [address] Nov, [facility] [place] [address] [facility] [address] [id number] [place] [id number] Nov, [facility] [place] [address] [facility] [address] [id number] [place] [id number] Nov, [facility] [place] [address] [facility] [address] [id number] [place] [id number] Nov, [facility] [place] [address] [facility] [address] [id number] [place] [address] Nov, [facility] [place] [address] [facility] [address] [id number] [place] [address] Nov, [facility] [place] [address] [facility] [address] [id number] [place] [id number] Oct, [facility] [place] [address] [facility] [address] [id number] [place] [address] Oct, Other ulcerative colitis without complication K51.80 ; Irritable bowel syndrome with constipation K58.1 and Pneumonia of left lung due to infectious organism, unspecified part of lung J18.9 [facility] [address] [facility] [id number] [place] [id number] Oct, [facility] [place] [address] [facility] [address] [id number] [place] [address] Oct, [facility] [place] [address] [facility] [address] [id number] [place] [id number] Sep, [facility] [address] [facility] [id number] [place] [address] Aug, Acute bilateral low back pain without sciatica M54.5 [facility] [place] [address] [facility] [address] [id number] [place] [id number] Aug, [facility] [place] [address] [facility] [address] [id number] [place] [address] Jul, [facility] [place] [address] [facility] [address] [id number] [place] [address] Jun, [facility] [place] [address] [facility] [address] [id number] [place] [id number] Jun, [facility] [place] [address] [facility] [address] [id number] [place] [address] 14 Jun, 2016 [facility] [place] [address] [facility] [address] [id number] [place] [address] Jun, [facility] [place] [address] [facility] [address] [id number] [place] [address] May, Major depressive disorder, single episode, unspecified F32.9 ; Other ulcerative colitis without complication K51.80 and Osteoporosis M81.0 [facility] [place] [address] [facility] [address] [id number] [place] [id number] May, [facility] [place] [address] [facility] [address] [id number] [place] [id number] Apr, [facility] [place] [address] [facility] [address] [id number] [place] [address] Mar, [facility] [place] [address] [facility] [address] [id number] [place] [id number] February, [facility] [place] [address] [facility] [address] [id number] [place] [address] Jan, [facility] [place] [address] [facility] [address] [id number] [place] [address] Jan, [facility] [place] [address] [facility] [address] [id number] [place] [address] Jan, Major depressive disorder, single episode, unspecified F32.9 ; Other ulcerative colitis without complication K51.80 ; Pharyngitis, unspecified etiology J02.9 and Essential hypertension with goal blood pressure less than 140\/90 I10 [facility] [place] [address] [facility] [address] [id number] [place] [address] Jan, [facility] [place] [address] [facility] [address] [id number] [place] [id number] Jan, [facility] [place] [address] [facility] [address] [id number] [place] [id number] Dec, [facility] [place] [address] [facility] [address] [id number] [place] [address] Dec, Constipation K59.00 ; Nausea R11.0 and Encounter for therapeutic drug level monitoring Z51.81 [facility] [place] [address] [facility] [address] [id number] [place] [address] Nov, [facility] [place] [address] [facility] [address] [id number] [place] [address] Nov, [facility] [place] [address] [facility] [address] [id number] [place] [address] Oct, [facility] [place] [address] [facility] [address] [id number] [place] [address] Sep, [facility] [place] [address] [facility] [address] [id number] [place] [id number] Aug, [facility] [place] [address] [facility] [address] [id number] [place] [address] Aug, [facility] [place] [address] [facility] [address] [id number] [place] [address] Aug, Chest pain, unspecified chest pain type R07.9 [facility] [place] [address] [facility] [address] [id number] [place] [address] Jul, [facility] [place] [address] [facility] [address] [id number] [place] [id number] Jul, [facility] [place] [address] [facility] [address] [id number] [place] [address] Jul, [facility] [place] [address] [facility] [address] [id number] [place] [address] Jul, Encounter for immunization Z23 [facility] [place] [address] [facility] [address] [id number] [place] [id number] Jun, [facility] [place] [address] [facility] [address] [id number] [place] [address] May, [facility] [place] [address] [facility] [address] [id number] [place] [address] May, [facility] [place] [address] [facility] [address] [id number] [place] [address] Apr, [facility] [place] [address] [facility] [address] [id number] [place] [address] Mar, Sacroiliac joint pain 724.6 and Weight gain 783.1 [facility] [place] [address] [facility] [address] [id number] [place] [address] Mar, [facility] [place] [address] [id number] [place] [id number] Mar, [facility] [place] [address] [facility] [address] [id number] [place] [id number] February, [facility] [place] [facility] [address] [facility] [id number] [place] [address] Jan, [facility] [place] [facility] [address] [facility] [id number] [place] [address] Jan, [facility] [place] [address] [facility] [address] [id number] [place] [address] Dec, [facility] [place] [address] [facility] [address] [id number] [place] [address] Dec, [facility] [place] [facility] [address] [facility] [id number] [facility] [place] [address] Dec, [facility] [place] [facility] [address] [facility] [id number] [facility] [place] [address] Dec, [facility] [place] [address] [facility] [address] [id number] [place] [address] Dec, [facility] [place] [facility] [address] [facility] [id number] [place] [address] Dec, [facility] [place] [address] [facility] [address] [id number] [place] [id number] Dec, [facility] [place] [facility] [address] [facility] [id number] [place] [address] Dec, [facility] [place] [address] [facility] [address] [id number] [place] [id number] Nov, [facility] [place] [facility] [address] [facility] [id number] [place] [address] Nov, [facility] [place] [facility] [address] [facility] [id number] [facility] [place] [address] Nov, [facility] [place] [address] [facility] [address] [id number] [place] [address] Nov, [facility] [place] [address] [facility] [address] [id number] [place] [address] Nov, [facility] [place] [facility] [address] [id number] [place] [address] Nov, [facility] [place] [address] [id number] [place] [address] Oct, [facility] [place] [address] [email or web address] [address] [id number] [place] [id number] Oct, [facility] [place] [facility] [address] [id number] [place] [address] Oct, [facility] [place] [facility] [address] [id number] [place] [address] Oct, [facility] [place] [address] [facility] [[email or web address] [address] [id number] [place] [address] Sep, [facility] [address] [facility] [id number] [place] [address] Sep, [facility] [place] [address] [facility] [address] [id number] [place] [address] Sep, [facility] [place] [facility] [address] [id number] [place] [address] Sep, [facility] [place] [address] [facility] [address] [id number] [place] [address] Sep, [facility] [place] [facility] [address] [facility] [id number] [facility] [address] Sep, [facility] [place] [address] [facility] [address] [id number] [place] [address] Jul, [facility] [place] [facility] [address] [id number] [place] [address] Jul, [facility] [place] [facility] [address] [facility] [id number] [place] [address] Jan, [facility] [place] [facility] [address] [id number] [place] [address] Jan, [facility] [place] [address] [facility] [address] [id number] [place] [id number] Dec, [facility] [address] [facility] [id number] [place] [address] Dec, [facility] [address] [facility] [address] [id number] [place] [id number] Oct, [facility] [address] [facility] [id number] [place] [address] Oct, IMMUNIZATIONS No Known Immunizations SOCIAL HISTORY Never Assessed REASON FOR VISIT Cough, runny nose, fever, diarrhea, had sore throat (no longer hurts) chest hurs t, voice decreased, 3 days- Maxine Hinkle RN, bp-132/90 PLAN OF CARE Activity Details Follow Up prn Reason: VITAL SIGNS Height 66 in 2017-07-16 Weight 151.5 lbs 2017-07-16 Temperature 97.6 degrees Fahrenheit 2017-07-16 Heart Rate 88 bpm 2017-07-16 Respiratory Rate 20 2017-07-16 BMI 24.45 kg/m2 2017-07-16 Blood pressure systolic 132 mmHg 2017-07-16 Blood pressure diastolic 90 mmHg 2017-07-16 MEDICATIONS Medication Instructions Dosage Frequency Start Date End Date Duration Status Meloxicam 15MG TAKE ONE TABLET BY MOUTH ONCE DAILY 30 Active Gabapentin 300MG take 1 capsule by Oral route 2 times per day 30 Active Aspir-Low 81 MG Orally Once a day 1 tablet 24h Active Metoprolol Tartrate 100MG TAKE ONE TABLET BY MOUTH ONCE DAILY WITH A MEAL 30 Active MiraLax 3350 Orally Once a day dissolved in 4-8 oz of fluid Take 1-2 capful Dec, Active Combivent Respimat 20-100 MCG/ACT Inhalation Four times a day 1 puff 6h Jun, Active Diazepam 2MG TAKE ONE TABLET BY MOUTH TWICE DAILY 28 Active Lexapro 10MG TAKE ONE TABLET BY MOUTH ONCE DAILY 30 Active Cyclobenzaprine HCl 10MG 1 tablet 15 Active RESULTS Name Result Date Reference Range Xray : Chest (IN HOUSE) 2017-07-16 PROCEDURES Procedure Date Ordered Result Body Site CHEST X-RAY Jul 16, 2017 INSTRUCTIONS MEDICATIONS ADMINISTERED No Known Medications [...]
--- OUTSIDE RECORDS SUMMARY | 2019-05-19 17:21 | XMS REPORT ---
Author Author KRISTIE ROBERTSON Organization [facility] Address [address] [place] [address] Care Team Providers Care Director Of Reimbursement Name Role Phone SHELDONKRISTIE EPSINOSA Unavailable PROBLEMS Type Condition ICD9-CM Code [id number] Code Onset Dates Condition Status SNOMED Code Problem Anxiety F41.9 Active 57885662 Problem Essential hypertension I10 Active 47055591 Problem Other ulcerative colitis without complication K51.80 Active 24319953 ALLERGIES No Information SOCIAL HISTORY Never Assessed [...]
--- OUTSIDE RECORDS SUMMARY | 2019-05-19 17:21 | XMS REPORT ---
Author Author KRISTIE ROBERTSON [facility] Address [address] [place] [address] Care Team Providers Care Accounts Receivable Associate Name Role Phone KRISTIE ROBERTSON Unavailable PROBLEMS Type Condition ICD9-CM Code OGE69-FI Code Onset Dates Condition Status SNOMED Code Problem Anxiety F41.9 Active 66934003 Problem Essential hypertension I10 Active 95633480 Problem Other ulcerative colitis without complication K51.80 Active 02527139 ALLERGIES No Information SOCIAL HISTORY Never Assessed PLAN OF CARE VITAL SIGNS MEDICATIONS Medication Instructions Dosage Frequency Start Date End Date Duration Status Diazepam 2MG TAKE ONE TABLET BY MOUTH TWICE DAILY 28 Active RESULTS No Results PROCEDURES No Known [...]
--- OUTSIDE RECORDS SUMMARY | 2019-05-19 17:21 | XMS REPORT ---
Author ANJEL Oneal Organization [employer] Address Unknown Phone Unavailable Care Team Providers Care Invoicing Machine Operator Name Role Phone ANJEL MCDUFFIE CP Unavailable [...] Start Date End Date Status Dosage Diazepam [facility] [address]-02 2 MG January 20, 2015 take 1 tablet (2 mg) by oral route 2 times per day Results No Known Results Summary Purpose [employer] Submission
--- OUTSIDE RECORDS SUMMARY | 2019-05-19 17:21 | XMS REPORT ---
Author ARABELLA Sherman Organization [employer] Address Unknown Phone Unavailable Care Team Providers Care Inventory Planner Name Role Phone ARABELLA HAJI CP Unavailable Allergies No Known Allergies Problems [...] Status Dosage Diazepam [facility] [address]-78 2 MG January 20, 2015 take 1 tablet (2 mg) by oral route 2 times per day Results No Known Results Summary Purpose [employer] Submission
--- OUTSIDE RECORDS SUMMARY | 2019-05-19 17:21 | XMS REPORT ---
Author ANJEL Oneal Organization [employer] Address Unknown Phone Unavailable Care Team Providers Care Medical Review Specialist Name Role Phone ANJEL MCDUFFIE CP Unavailable [...]
--- OUTSIDE RECORDS SUMMARY | 2019-05-19 17:21 | XMS REPORT ---
Author YENI Alejandre [facility] [employer] Address Unknown Phone Unavailable Care Team Providers Care Carbon Paper Interleafer Name Role Phone YENI KELLEY CP Unavailable Allergies, Adverse Reactions, Alerts Substance [...] Mononeuritis of unspecified site 355.9 Active Assessment Chest pain, unspecified chest pain type R07.9 Active Problem Nondependent tobacco use disorder 305.1 Active Problem Nausea with vomiting 787.01 Active Problem Acute upper respiratory infections of unspecified site 465.9 Active Problem Counseling on substance use and abuse V65.42 Active Problem Sciatica 724.3 Active Problem Fever, unspecified 780.60 Active Medications Medication Code System Code Instructions Start Date End Date Status Dosage Metoprolol Tartrate [facility] 78890568045 100MG take 1 tablet (100 mg) by oral route once daily with a meal Fluoxetine HCl [facility] 35885157234 20MG TAKE ONE CAPSULE BY MOUTH ONCE DAILY. Cyclobenzaprine HCl [facility] [address]-99 10 MG 1-2 times a day 1 tablet Diazepam [facility] [address]-23 2 MG January 20, 2015 take 1 tablet (2 mg) by oral route 2 times per day Meloxicam [facility] 43982797822 15MG TAKE ONE TABLET BY MOUTH ONCE DAILY Aspir-Low [facility] [address]-00 81 MG Orally Once a day 1 tablet Gabapentin [facility] 03160606836 300 MG take 1 capsule by Oral route 2 times per day Procedures Procedure Coding System Code Date Office Visit, Est Pt., Level 3 CPT-4 62890 Aug 30, 2015 Vital Signs Date/Time: Aug 30, 2015 Temperature 98.5 F Weight 150.2 lbs Height 66 in BMI 24.24 Index Blood Pressure Diastolic 60 mmHg Blood Pressure Systolic 124 mmHg Cardiac Monitoring Heart Rate 60 bpm Results No Known Results Summary Purpose [employer] Submission
--- OUTSIDE RECORDS SUMMARY | 2019-05-19 17:21 | XMS REPORT ---
Author ARABELLA Sherman Organization [employer] Address Unknown Phone Unavailable Care Team Providers Care Snow Plow Tractor Operator Name Role Phone ARABELLA HAJI CP Unavailable [...] Start Date End Date Status Dosage Diazepam [facility] [address]-86 2 MG January 20, 2015 take 1 tablet (2 mg) by oral route 2 times per day Results No Known Results Summary Purpose [employer] Submission
--- OUTSIDE RECORDS SUMMARY | 2019-05-19 17:22 | XMS REPORT ---
Author ANJEL Oneal Organization [employer] Address Unknown Phone Unavailable Care Team Providers Care Spray Painter Helper Name Role Phone ANJEL MCDUFFIE CP Unavailable [...] Instructions Start Date End Date Status Dosage Cyclobenzaprine HCl [facility] [address]-85 10 MG 1-2 times a day 1 tablet Results No Known Results Summary Purpose [employer] Submission
--- OUTSIDE RECORDS SUMMARY | 2019-05-19 17:22 | XMS REPORT ---
Author KRISTIE Vega Organization [employer] Address Unknown Phone Unavailable Care Team Providers Care Home Energy Consultant Supervisor Name Role Phone KRISTIE ROBERTSON CP Unavailable [...] Start Date End Date Status Dosage Diazepam [facility] 71248691896 2MG TAKE ONE TABLET BY MOUTH TWICE DAILY. Results No Known Results Summary Purpose [employer] Submission
--- OUTSIDE RECORDS SUMMARY | 2019-05-19 17:22 | XMS REPORT ---
Author ANJEL Oneal Organization [employer] Address Unknown Phone Unavailable Care Team Providers Care Respite Provider Name Role Phone ANJEL MCDUFFIE CP Unavailable [...] Start Date End Date Status Dosage Diazepam [facility] [address]-22 2 MG January 20, 2015 take 1 tablet (2 mg) by oral route 2 times per day Results No Known Results Summary Purpose [employer] Submission
--- OUTSIDE RECORDS SUMMARY | 2019-05-19 17:22 | XMS REPORT ---
Author Author KRISTIE ROBERTSON [facility] Address [address] [place] [address] Care Team Providers Care Header Boss Name Role Phone KRISTIE ROBERTSON Unavailable PROBLEMS Type Condition ICD9-CM Code AAH68-YL Code Onset Dates Condition Status SNOMED Code Problem Anxiety F41.9 Active 03289874 Problem Essential hypertension I10 Active 24437069 Problem Other ulcerative colitis without complication K51.80 Active 87057434 ALLERGIES No Known Allergies SOCIAL HISTORY No smoking Hx information available PLAN OF CARE VITAL SIGNS MEDICATIONS Medication Instructions Dosage Frequency Start Date End Date Duration Status Lexapro 10 mg Orally Once a day 1 tablet 24h 30 days Active RESULTS No Results PROCEDURES No Known procedures IMMUNIZATIONS No Known Immunizations
--- OUTSIDE RECORDS SUMMARY | 2019-05-19 17:22 | XMS REPORT ---
Author Author KRISTIE ROBERTSON Organization [facility] [place] Address [address] [place] [address] Care Team Providers Care Endband Cutter Hand Name Role Phone KRISTIE ROBERTSON Unavailable PROBLEMS Type Condition ICD9-CM Code MDR90-JY Code Onset Dates Condition Status SNOMED Code Problem Anxiety F41.9 Active 81019871 Problem Essential hypertension I10 Active 11524483 Problem Other ulcerative colitis without complication K51.80 Active 72753638 ALLERGIES Substance Reaction Event Type Date Status Lortab Unknown Drug Allergy Apr, Active Hepatitis B Vac Recombinant Unknown Drug Allergy Apr, Active Vera-e Eye Oint Unknown Non Drug Allergy Apr, Active Bee Venom Unknown Non Drug Allergy Apr, Active ENCOUNTERS Encounter Location Date Diagnosis [facility] [place] [address] [id number] [place] [id number] Nov, [facility] [place] [address] [id number] [place] [id number] Oct, [facility] [place] [address] [place] [address] [address] [id number] [place], [place] [id number] Sep, Essential hypertension I10 [facility] [place] [address] [place] [address] C [id number] [place], [place] [id number] Sep, Tachycardia R00.0 ; Essential hypertension I10 and B12 deficiency E53.8 [facility] [place] [address] [id number] [place] [id number] Sep, [facility] [place] [address] [id number] [place] [address] Aug, [facility] [place] [address] [id number] [place] [id number] 18 Jun, 2017 Cough R05 and Bronchitis J40 [facility] [place] [address] [facility] [address] [id number] [place] [id number] 14 Jun, 2017 [facility] [place] [address] [id number] [place] [id number] May, Acute medial meniscus tear of right knee, initial encounter S83.241A [facility] [place] [address] [id number] [place] [id number] May, [facility] [place] [address] [id number] [place] [id number] Apr, [facility] [address] [facility] [id number] [facility] [address] Apr, [facility] [place] [address] [facility] [id number] [place] [address] Apr, Right medial knee pain M25.561 [facility] [place] [address] [id number] [place] [id number] Mar, [facility] [place] [address] [id number] [place] [address] February, [facility] [place] [address] [facility] [address] [id number] [place] [address] Jan, [facility] [place] [address] [id number] [place] [address] Jan, [facility] [place] [address] [facility] [address] [id number] [place] [address] Jan, Other ulcerative colitis without complication K51.80 ; Irritable bowel syndrome with constipation K58.1 ; Anxiety F41.9 and Essential hypertension I10 [facility] [place] [address] [facility] [id number] [place] [address] Dec, [facility] [place] [address] [facility] [address] [id number] [place] [address] Dec, [facility] [place] [address] [facility] [address] [address] [id number] [place] [id number] Dec, [facility] [place] [address] [facility] [address] [address] [id number] [place] [address]183 Nov, [facility] [place] [address] [facility] [address] [address] [id number] [place] [address] Nov, [facility] [place] [address] [facility] [address] [id number] [place] [address] Nov, [facility] [place] [address] [facility] [address] [id number] [place] [address] Nov, [facility] [place] [address] [facility] [address] [id number] [place] [address] Nov, [facility] [place] [address] [facility] [address] [id number] [place] [address] Nov, [facility] [place] [address] [facility] [address] [id number] [place] [address] Oct, [facility] [place] [address] [facility] [address] [id number] [place] [address] Oct, Other ulcerative colitis without complication K51.80 ; Irritable bowel syndrome with constipation K58.1 and Pneumonia of left lung due to infectious organism, unspecified part of lung J18.9 [facility] [place] [address] [facility] [id number] [place] [id number] Oct, [facility] [place] [address] [facility] [address] [id number] [place] [id number] Oct, [facility] [place] [address] [facility] [id number] [place] [address] Sep, [facility] [address] [facility] [id number] [place] [address] Aug, Acute bilateral low back pain without sciatica M54.5 [facility] [place] [address] [facility] [address] [id number] [place] [address] Aug, [facility] [place] [address] [facility] [address] [id number] [place] [address] Jul, [facility] [place] [address] [facility] [address] [id number] [place] [address] Jun, [facility] [place] [address] [facility] [address] [id number] [place] [address] Jun, [facility] [place] [address] [facility] [address] [address] [id number] [place] [id number] 14 Jun, 2016 [facility] [place] [address] [facility] [address] [address] [id number] [place] [address] Jun, [facility] [place] [address] [facility] [address] [id number] [place] [address] May, Major depressive disorder, single episode, unspecified F32.9 ; Other ulcerative colitis without complication K51.80 and Osteoporosis M81.0 [facility] [place] [address] [facility] [address] [id number] [place] [address] May, [facility] [place] [address] [facility] [address] [id number] [place] [address] Apr, [facility] [place] [address] [facility] [address] [id number] [place] [address] Mar, [facility] [place] [address] [facility] [address] [address] [id number] [place] [address] February, [facility] [place] [address] [facility] [address] [id number] [place] [address] Jan, [facility] [place] [address] [facility] [address] [id number] [place] 1944[address]489 Jan, [facility] [place] [address] [facility] [address] [id number] [place] [address] Jan, Major depressive disorder, single episode, unspecified F32.9 ; Other ulcerative colitis without complication K51.80 ; Pharyngitis, unspecified etiology J02.9 and Essential hypertension with goal blood pressure less than 140\/90 I10 [facility] [place] [address] [facility] [address] [id number] [place] [address]59[address] Jan, [facility] [place] [address] [facility] [address] [id number] [place] [address] Jan, [facility] [place] [address] [facility] [address] [id number] [place] [address] Dec, [facility] [place] [address] [facility] [address] [address] [id number] [place] [address] Dec, Constipation K59.00 ; Nausea R11.0 and Encounter for therapeutic drug level monitoring Z51.81 [facility] [place] [address] [facility] [address] [address] [id number] [place] [address] Nov, [facility] [place] [address] [facility] [address] [id number] [place] [address] Nov, [facility] [place] [address] [facility] [address] [id number] [place] 295[address]016 Oct, [facility] [place] [address] [facility] [address] [id number] [place] [address] Sep, [facility] [place] [address] [facility] [address] [id number] [place] [id number] Aug, [facility] [place] [address] [facility] [address] [id number] [place] 179856409 Aug, [facility] [place] [address] [facility] [address] [id number] [place] 8[address]47[address] Aug, Chest pain, unspecified chest pain type R07.9 [facility] [place] [address] [facility] [address] [id number] [place] [address]892 Jul, [facility] [place] [address] [facility] [address] [address] [id number] [place] 305[address]199[address] Jul, [facility] [place] [address] [facility] [address] [id number] [place] [address] Jul, [facility] [place] [address] [facility] [address] [id number] [place] 386[address]833 Jul, Encounter for immunization Z23 [facility] [place] [address] [facility] [address] [id number] [place] [id number] Jun, [facility] [place] [address] [facility] [address] [id number] [place] 8[address] May, [facility] [place] [address] [facility] [address] [id number] [place] 6070[address] May, [facility] [place] [address] [facility] [address] [id number] [place] 95[address] Apr, [facility] [place] [address] [facility] [address] [address] [id number] [place] 760336647 Mar, Sacroiliac joint pain 724.6 and Weight gain 783.1 [facility] [place] [address] [facility] [address] [id number] [place] 3022[address] Mar, [facility] [place] [address] [id number] [place] 3936[address] Mar, [facility] [place] [address] [facility] [address] [id number] [place] [id number] February, [facility] [place] [facility] [address] [facility] [id number] [place] [address] Jan, [facility] [place] [facility] [address] [facility] [id number] [place] [address] Jan, [facility] [place] [address] [facility] [address] [id number] [place] [id number] Dec, [facility] [place] [address] [facility] [address] [id number] [place] 30[address] Dec, [facility] [place] [facility] [address] [facility] [id number] [facility] [place] [address] Dec, [facility] [place] [facility] [address] [facility] [id number] [facility] [place] [address] Dec, [facility] [place] [address] [facility] [address] [id number] [place] [address] Dec, [facility] [place] [facility] [address] [facility] [id number] [place] [address] Dec, [facility] [place] [address] [facility] [address] [id number] [place] [address] Dec, [facility] [place] [facility] [address] [facility] [id number] [place] [address] Dec, [facility] [place] [address] [facility] [address] [id number] [place] [id number] Nov, [facility] [place] [facility] [address] [facility] [id number] [place] [address] Nov, [facility] [place] [facility] [address] [facility] [id number] [facility] [place] [address] Nov, [facility] [place] [address] [facility] [address] [id number] [place] [address] Nov, [facility] [place] [address] [facility] [address] [id number] [place] 2428[address]018 Nov, [facility] [place] [facility] [address] [id number] [place] [address] Nov, [facility] [place] [address] [id number] [place] [id number] Oct, [facility] [place] [address] [facility] [address] [id number] [place] 135627991 Oct, [facility] [place] [facility] [address] [id number] [place] [address] Oct, [facility] [place] [facility] [address] [id number] [place] [address] Oct, [facility] [place] [address] [facility] [address] [id number] [place] 657[address]2289 Sep, [facility] [address] [facility] [id number] [place] [address] Sep, [facility] [place] [address] [facility] [address] [id number] [place] 293978497 Sep, [facility] [place] [facility] [address] [id number] [place] [address] Sep, [facility] [place] [address] [facility] [address] [id number] [place] [address] Sep, [facility] [place] [facility] [address] [facility] [id number] [facility] [place] [address] Sep, [facility] [place] [address] [facility] [address] [id number] [place] 6[address]156 Jul, [facility] [place] [facility] [address] [id number] [place] [address] Jul, [facility] [place] [facility] [address] [facility] [id number] [place] [address] Jan, [facility] [place] [facility] [address] [id number] [place] [address] Jan, [facility] [place] [address] [facility] [address] [id number] [place] [address] Dec, [facility] [address] [facility] [id number] [place] [address] Dec, [facility] [address] [facility] [address] [id number] [place] [address] Oct, [facility] [address] [facility] [id number] [place] [address] Oct, IMMUNIZATIONS No Known Immunizations SOCIAL HISTORY Never Assessed REASON FOR VISIT Rt knee pain.Had surgery in 8th grade. No apparent injury, feels like she hypere xtended it- Araceli PLAN OF CARE Activity Details Follow Up prn Reason: VITAL SIGNS Height 66 in 2017-05-14 Weight 154.8 lbs 2017-05-14 Temperature 98.7 degrees Fahrenheit 2017-05-14 Heart Rate 78 bpm 2017-05-14 Respiratory Rate 16 2017-05-14 BMI 24.98 kg/m2 2017-05-14 Blood pressure systolic 138 mmHg 2017-05-14 Blood pressure diastolic 86 mmHg 2017-05-14 MEDICATIONS Medication Instructions Dosage Frequency Start Date End Date Duration Status Gabapentin 300MG take 1 capsule by Oral route 2 times per day 30 Active Metoprolol Tartrate 100MG take 1 tablet (100 mg) by oral route once daily with a meal Active MiraLax 3350 Orally Once a day dissolved in 4-8 oz of fluid Take 1-2 capful 02 Dec, 2015 Active Meloxicam 15MG TAKE ONE TABLET BY MOUTH ONCE DAILY 30 Active Lexapro 10 mg Orally Once a day 1 tablet 24h 30 Active Aspir-Low 81 MG Orally Once a day 1 tablet 24h Active Diazepam 2MG TAKE ONE TABLET BY MOUTH TWICE DAILY 28 Active Zorvolex 35 MG Orally 2 times a day 1 capsule with food or milk as needed 12h Apr, Active RESULTS Name Result Date Reference Range Xray : Knee, Right 3 views (IN HOUSE) 2017-05-14 PROCEDURES Procedure Date Ordered Result Body Site X-RAY EXAM OF KNEE, 3 May 14, 2017 INSTRUCTIONS MEDICATIONS ADMINISTERED No Known Medications [...]
--- OUTSIDE RECORDS SUMMARY | 2019-05-19 17:22 | XMS REPORT ---
Author KRISTIE Vega Organization [employer] Address Unknown Phone Unavailable Care Team Providers Care Pin Game Machine Inspector Name Role Phone KRISTIE ROBRETSON CP Unavailable Allergies No Known Allergies Problems [...]
--- OUTSIDE RECORDS SUMMARY | 2019-05-19 17:22 | XMS REPORT ---
Author Author KRISTIE ROBERTSON Organization [facility] [place] Address [address] [place] [address] Care Team Providers Care Commercial Crabber Name Role Phone KRISTIE ROBERTSON Unavailable PROBLEMS Type Condition ICD9-CM Code XXF11-QA Code Onset Dates Condition Status SNOMED Code Problem Anxiety F41.9 Active 50394235 Problem Essential hypertension I10 Active 66539138 Problem Other ulcerative colitis without complication K51.80 Active 68001875 ALLERGIES Substance Reaction Event Type Date Status Lortab Unknown Drug Allergy May, Active Hepatitis B Vac Recombinant Unknown Drug Allergy May, Active Vera-e Eye Oint Unknown Non Drug Allergy May, Active Bee Venom Unknown Non Drug Allergy May, Active ENCOUNTERS Encounter Location Date Diagnosis [facility] [place] [address] [facility] [address] [id number] [place], [place] [id number] Nov, [facility] [place] [address] [facility] [address] [id number] [place] [id number] Oct, [facility] [place] [address] [place] [address] [address] [id number] [place] [id number] Sep, Essential hypertension I10 [facility] [place] [address] [place] [address] [address] [id number] [place] [id number] Sep, Tachycardia R00.0 ; Essential hypertension I10 and B12 deficiency E53.8 [facility] [place] [address] [facility] [address] [id number] [place] [id number] Sep, [facility] [place] [address] [facility] [address] [id number] [place] [id number] Aug, [facility] [place] [address] [facility] [address] [id number] [place] [id number] 18 Jun, 2017 Cough R05 and Bronchitis J40 [facility] [place] [address] [facility] [address] [id number] [place] [id number] 14 Jun, 2017 [facility] [place] [address] [place] [address] [address] [id number] [place] [id number] May, Acute medial meniscus tear of right knee, initial encounter S83.241A [facility] [place] [address] [facility] [address] [id number] [place] [id number] May, [facility] [place] [address] [facility] [address] [id number] [place] [id number] Apr, [facility] [address] [facility] [id number] [facility] [place] [address] Apr, [facility] [place] [address] [facility] [address] [id number] [place] [id number] Apr, Right medial knee pain M25.561 [facility] [place] [address] [facility] [address] [id number] [place] [id number] Mar, [facility] [place] [address] [facility] [address] [id number] [place] [id number] February, [facility] [place] [address] [facility] [address] [id number] [place] [id number] Jan, [facility] [place] [address] [facility] [address] [id number] [place] [id number] Jan, [facility] [place] [address] [facility] [address] [id number] [place] [id number] Jan, Other ulcerative colitis without complication K51.80 ; Irritable bowel syndrome with constipation K58.1 ; Anxiety F41.9 and Essential hypertension I10 [facility] [place] [address] [facility] [address] [id number] [place] [id number] Dec, [facility] [place] [address] [facility] [address] [id number] [place] [id number] Dec, [facility] [place] [address] [facility] [address] [id number] [place] [id number] Dec, [facility] [place] [address] [facility] [address] [id number] [place] [id number] Nov, [facility] [place] [address] [facility] [address] [id number] [place] [id number] Nov, [facility] [place] [address] [facility] [address] [id number] [place] [id number] Nov, [facility] [place] [address] [facility] [address] [id number] [place] [id number] Nov, [facility] [place] [address] [facility] [address] [id number] [place] [id number] Nov, [facility] [place] [address] [facility] [address] [id number] [place] [id number] Nov, [facility] [place] [address] [facility] [address] [id number] [place] [id number] Oct, [facility] [place] [address] [facility] [address] [id number] [place] [id number] Oct, Other ulcerative colitis without complication K51.80 ; Irritable bowel syndrome with constipation K58.1 and Pneumonia of left lung due to infectious organism, unspecified part of lung J18.9 [facility] [place] [address] [facility] [id number] [place] [id number] Oct, [facility] [place] [address] [facility] [address] [id number] [place] [id number] Oct, [facility] [place] [address] [facility] [address] [id number] [place] [id number] Sep, [facility] [address] [facility] [id number] [place] [address] Aug, Acute bilateral low back pain without sciatica M54.5 [facility] [place] [address] [facility] [address] [id number] [place] [id number] Aug, [facility] [place] [address] [facility] [address] [id number] [place] [id number] Jul, [facility] [place] [address] [facility] [address] [id number] [place] [id number] Jun, [facility] [place] [address] [facility] [address] [id number] [place] [id number] Jun, [facility] [place] [address] [facility] [address] [id number] [place] [id number] 14 Jun, 2016 [facility] [place] [address] [facility] [address] [id number] [place] [id number] Jun, [facility] [place] [address] [facility] [address] [id number] [place] 845[address] May, Major depressive disorder, single episode, unspecified F32.9 ; Other ulcerative colitis without complication K51.80 and Osteoporosis M81.0 [facility] [place] [address] [facility] [address] [id number] [place] [id number] May, [facility] [place] [address] [facility] [address] [id number] [place] [id number] Apr, [facility] [place] [address] [facility] [address] [id number] [place] 312[address] Mar, [facility] [place] [address] [facility] [address] [id number] [place] [id number] February, [facility] [place] [address] [facility] [address] [id number] [place] [address] Jan, [facility] [place] [address] [facility] [address] [id number] [place] 485[address]70 Jan, [facility] [place] [address] [facility] [address] [id number] [place] [id number] Jan, Major depressive disorder, single episode, unspecified F32.9 ; Other ulcerative colitis without complication K51.80 ; Pharyngitis, unspecified etiology J02.9 and Essential hypertension with goal blood pressure less than 140\/90 I10 [facility] [place] [address] [facility] [address] [id number] [place] [id number] Jan, [facility] [place] [address] [facility] [address] [id number] [place] 6[address] Jan, [facility] [place] [address] [facility] [address] [id number] [place] 7708[address] Dec, [facility] [place] [address] [facility] [address] [id number] [place] 7484724[address] Dec, Constipation K59.00 ; Nausea R11.0 and Encounter for therapeutic drug level monitoring Z51.81 [facility] [place] [address] [facility] [address] [id number] [place] [address]8848[address] Nov, [facility] [place] [address] [facility] [address] [id number] [place] [id number] Nov, [facility] [place] [address] [facility] [address] [id number] [place] [id number] Oct, [facility] [place] [address] [facility] [address] [id number] [place] 6[address]84[address] Sep, [facility] [place] [address] [facility] [address] [id number] [place] 1776[address] Aug, [facility] [place] [address] [facility] [address] [id number] [place] [id number] Aug, [facility] [place] [address] [facility] [address] [id number] [place] [address]8435 Aug, Chest pain, unspecified chest pain type R07.9 [facility] [place] [address] [facility] [address] [id number] [place] [id number] Jul, [facility] [place] [address] [facility] [address] [id number] [place] [id number] Jul, [facility] [place] [address] [facility] [address] [id number] [place] 336878989 Jul, [facility] [place] [address] [facility] [address] [id number] [place] [id number] Jul, Encounter for immunization Z23 [facility] [place] [address] [facility] [address] [id number] [place] [id number] Jun, [facility] [place] [address] [facility] [address] [id number] [place] [id number] May, [facility] [place] [address] [facility] [address] [id number] [place] [id number] May, [facility] [place] [address] [facility] [address] [id number] [place] 9459913[address] Apr, [facility] [place] [address] [facility] [address] [id number] [place] 8[address] Mar, Sacroiliac joint pain 724.6 and Weight gain 783.1 [facility] [place] [address] [facility] [address] [id number] [place] [id number] Mar, [facility] [place] [address] [id number] [place] [id number] Mar, [facility] [place] [address] [facility] [address] [id number] [place] [id number] February, [facility] [place] [facility] [address] [facility] [id number] [place] [address] Jan, [facility] [place] [facility] [address] [facility] [id number] [place] [address] Jan, [facility] [place] [address] [facility] [address] [id number] [place] [id number] Dec, [facility] [place] [address] [facility] [address] [id number] [place] [id number] Dec, [facility] [place] [facility] [address] [facility] [id number] [facility] [place] [address] Dec, [facility] [place] [facility] [address] [facility] [id number] [facility] [place] [address] Dec, [facility] [place] [address] [facility] [address] [id number] [place] 454701451 Dec, [facility] [place] [facility] [address] [facility] [id number] [place] [address] Dec, [facility] [place] [address] [facility] [address] [id number] [place] [id number] Dec, [facility] [place] [facility] [address] [facility] [id number] [place] [address] Dec, [facility] [place] [address] [facility] [address] [id number] [place] 6836489[address] Nov, [facility] [place] [facility] [address] [facility] [id number] [place] [address] Nov, [facility] [place] [facility] [address] [facility] [id number] [facility] [place] [address] Nov, [facility] [place] [address] [facility] [address] [id number] [place] [id number] Nov, [facility] [place] [address] [facility] [address] [id number] [place] 724573587 Nov, [facility] [place] [facility] [address] [id number] [place] [address] Nov, [facility] [place] [address] [id number] [place] [id number] Oct, [facility] [place] [address] [facility] [address] [id number] [place] [id number] Oct, [facility] [place] [facility] [address] [id number] [place] [address] Oct, [facility] [place] [facility] [address] [id number] [place] [address] Oct, [facility] [place] [address] [facility] [address] [id number] [place] [id number] Sep, [facility] [address] [facility] [id number] [place] [address] Sep, [facility] [place] [address] [facility] [address] [id number] [place] [id number] Sep, [facility] [place] [facility] [address] [id number] [place] [address] Sep, [facility] [place] [address] [facility] [address] [id number] [place] [id number] Sep, [facility] [place] [facility] [address] [facility] [id number] [facility] [place] [address] Sep, [facility] [place] [address] [facility] [address] [id number] [place] [id number] Jul, [facility] [place] [facility] [address] [id number] [place] [address] Jul, [facility] [place] [facility] [address] [facility] [id number] [place] [address] Jan, [facility] [place] [facility] [address] [id number] [place] [address] Jan, [facility] [place] [address] [facility] [address] [id number] [place] [id number] Dec, [facility] [place] [address] [facility] [id number] [place] [address] Dec, [facility] [address] [facility] [address] [id number] [place] [id number] Oct, [facility] [place] [address] [facility] [id number] [place] [address] Oct, IMMUNIZATIONS No Known Immunizations SOCIAL HISTORY Never Assessed REASON FOR VISIT Knee pain, right. Pain currently at 06/07....................lwileyrn PLAN OF CARE Activity Details Follow Up prn Reason: VITAL SIGNS Height 66 in 2017-06-19 Weight 153.0 lbs 2017-06-19 Temperature 98.2 degrees Fahrenheit 2017-06-19 Heart Rate 76 bpm 2017-06-19 Respiratory Rate 18 2017-06-19 BMI 24.69 kg/m2 2017-06-19 Blood pressure systolic 122 mmHg 2017-06-19 Blood pressure diastolic 80 mmHg 2017-06-19 MEDICATIONS Medication Instructions Dosage Frequency Start Date End Date Duration Status Lexapro 10 mg Orally Once a day 1 tablet 24h 30 Active Aspir-Low 81 MG Orally Once a day 1 tablet 24h Active MiraLax 3350 Orally Once a day dissolved in 4-8 oz of fluid Take 1-2 capful Dec, Active Cyclobenzaprine HCl 10MG 1 tablet 15 Active Gabapentin 300MG take 1 capsule by Oral route 2 times per day 30 Active Metoprolol Tartrate 100MG take 1 tablet (100 mg) by oral route once daily with a meal Active Meloxicam 15MG TAKE ONE TABLET BY MOUTH ONCE DAILY 30 Active Diazepam 2MG TAKE ONE TABLET BY [...]
--- OUTSIDE RECORDS SUMMARY | 2019-05-19 17:22 | XMS REPORT ---
Author Author KRISTIE ROBERTSON Organization [facility] [place] Address [address] [place] [address] Care Team Providers Care Salesperson Wigs Name Role Phone KRISTIE ROBERTSON Unavailable PROBLEMS Type Condition ICD9-CM Code GTM65-VQ Code Onset Dates Condition Status SNOMED Code Problem Anxiety F41.9 Active 13659043 Problem Essential hypertension I10 Active 79910937 Problem Other ulcerative colitis without complication K51.80 Active 80000743 ALLERGIES No Information ENCOUNTERS Encounter Location Date Diagnosis [facility] [place] [address] [facility] [address] [id number] [place] [id number] Mar, [facility] [place] [address] [facility] [address] [id number] [place] [id number] February, [facility] [place] [address] [place] [address] [address] [id number] [place] [id number] February, Bronchitis J40 [facility] [place] [address] [place] [address] [address] [id number] [place] [address] Nov, [facility] [place] [address] [place] [address] [address] [id number] [place] [id number] Oct, [facility] [place] [address] [facility] [address] [id number] [place] [address] Sep, Essential hypertension I10 [facility] [place] [address] [place] [address] [address] [id number] [place] [id number] Sep, Tachycardia R00.0 ; Essential hypertension I10 and B12 deficiency E53.8 [facility] [place] [address] [facility] [address] [id number] [place] [address] Sep, [facility] [place] [address] [facility] [address] [id number] [place] [address] Aug, [facility] [place] [address] [facility] [address] [id number] [place] [address] Jun, Cough R05 and Bronchitis J40 [facility] [place] [address] [facility] [address] [id number] [place] [address] Jun, [facility] [place] [address] [facility] [address] [id number] [place] [address] May, Acute medial meniscus tear of right knee, initial encounter S83.241A [facility] [place] [address] [facility] [address] [id number] [place] [id number] May, [facility] [place] [address] [facility] [address] [id number] [place] [id number] Apr, [facility] [address] [facility] [id number] [place] [address] Apr, [facility] [place] [address] [facility] [address] [id number] [place] [address] Apr, Right medial knee pain M25.561 [facility] [place] [address] [facility] [address] [id number] [place] [address] Mar, [facility] [place] [address] [facility] [address] [id number] [place] [address] February, [facility] [place] [address] [facility] [address] [id number] [place] [address] Jan, [facility] [place] [address] [facility] [address] [id number] [place] [address] Jan, [facility] [place] [address] [facility] [address] [id number] [place] [address] Jan, Other ulcerative colitis without complication K51.80 ; Irritable bowel syndrome with constipation K58.1 ; Anxiety F41.9 and Essential hypertension I10 [facility] [place] [address] [facility] [address] [id number] [place] [id number] Dec, [facility] [place] [address] [facility] [address] [id number] [place] [address] Dec, [facility] [place] [address] [facility] [address] [id number] [place] [address] Dec, [facility] [place] [address] [facility] [address] [id number] [place] 14[address] Nov, [facility] [place] [address] [facility] [address] [id number] [place] [address] Nov, [facility] [place] [address] [facility] [address] [id number] [place] [address] Nov, [facility] [place] [address] [facility] [address] [id number] [place] [id number] Nov, [facility] [place] [address] [facility] [address] [id number] [place] [address] Nov, [facility] [place] [address] [facility] [address] [id number] [place] [address] Nov, [facility] [place] [address] [facility] [address] [id number] [place] [address] Oct, [facility] [place] [address] [facility] [address] [id number] [place] [address] Oct, Other ulcerative colitis without complication K51.80 ; Irritable bowel syndrome with constipation K58.1 and Pneumonia of left lung due to infectious organism, unspecified part of lung J18.9 [facility] [place] [address] [facility] [id number] [place] [address] Oct, [facility] [place] [address] [facility] [address] [id number] [place] [id number] Oct, [facility] [place] [address] [facility] [address] [id number] [place] [address] Sep, [facility] [address] [facility] [id number] [place] [address] Aug, Acute bilateral low back pain without sciatica M54.5 [facility] [place] [address] [facility] [address] [id number] [place] [address] Aug, [facility] [place] [address] [facility] [address] [id number] [place] [address] Jul, [facility] [place] [address] [facility] [address] [id number] [place] [address] Jun, [facility] [place] [address] [facility] [address] [id number] [place] [address] Jun, [facility] [place] [address] [facility] [address] [id number] [place] [address] 14 Jun, 2016 [facility] [place] [address] [facility] [address] [id number] [place] [address]857 Jun, [facility] [place] [address] [facility] [address] [id number] [place] [address] May, Major depressive disorder, single episode, unspecified F32.9 ; Other ulcerative colitis without complication K51.80 and Osteoporosis M81.0 [facility] [place] [address] [facility] [address] [id number] [place] [id number] 15 May, 2016 [facility] [place] [address] [facility] [address] [id number] [place], [place] [address] Apr, [facility] [place] [address] [facility] [address] [id number] [place] 98[address] Mar, [facility] [place] [address] [facility] [address] [id number] [place] [address] February, [facility] [place] [address] [facility] [address] [id number] [place] 8516[address]656 Jan, [facility] [place] [address] [facility] [address] [id number] [place] [address] Jan, [facility] [place] [address] [facility] [address] [id number] [place] [address] Jan, Major depressive disorder, single episode, unspecified F32.9 ; Other ulcerative colitis without complication K51.80 ; Pharyngitis, unspecified etiology J02.9 and Essential hypertension with goal blood pressure less than 140\/90 I10 [facility] [place] [address] [facility] [address] [id number] [place] [address] Jan, [facility] [place] [address] [facility] [address] [id number] [place] [address] Jan, [facility] [place] [address] [facility] [address] [id number] [place] [address] Dec, [facility] [place] [address] [facility] [address] [id number] [place] 257[address]150 Dec, Constipation K59.00 ; Nausea R11.0 and Encounter for therapeutic drug level monitoring Z51.81 [facility] [place] [address] [facility] [address] [id number] [place] [address]647 Nov, [facility] [place] [address] [facility] [address] [id number] [place] [address] Nov, [facility] [place] [address] [facility] [address] [id number] [place] [id number] Oct, [facility] [place] [address] [facility] [address] [id number] [place] 12[address]87977 Sep, [facility] [place] [address] [facility] [address] [id number] [place] 300[address]399 Aug, [facility] [place] [address] [facility] [address] [id number] [place] 909600373 Aug, [facility] [place] [address] [facility] [address] [id number] [place] [address] Aug, Chest pain, unspecified chest pain type R07.9 [facility] [place] [address] [facility] [address] [id number] [place] [address]15[address] Jul, [facility] [place] [address] [facility] [address] [id number] [place] 17[address] Jul, [facility] [place] [address] [facility] [address] [id number] [place] 333937478 Jul, [facility] [place] [address] [facility] [address] [id number] [place] 3[address]408[address] Jul, Encounter for immunization Z23 [facility] [place] [address] [facility] [address] [id number] [place] [address] Jun, [facility] [place] [address] [facility] [address] [id number] [place] 997809[address] May, [facility] [place] [address] [facility] [address] [id number] [place] [address] May, [facility] [place] [address] [facility] [address] [id number] [place] 3790[address]696 Apr, [facility] [place] [address] [facility] [address] [id number] [place] 362875669 Mar, Sacroiliac joint pain 724.6 and Weight gain 783.1 [facility] [place] [address] [id number] [place] 450440[address] Mar, [facility] [place] [address] [facility] [address] [id number] [place] [address]41[address] Mar, [facility] [place] [address] [facility] [address] [id number] [place] 922512845 February, [facility] [place] [facility] [address] [facility] [id number] [place] [address] Jan, [facility] [address] [facility] [id number] [facility] [address] Jan, [facility] [place] [address] [facility] [address] [id number] [place] 639594865 Dec, [facility] [place] [address] [facility] [address] [id number] [place] 89[address] Dec, [facility] [place] [facility] [address] [facility] [id number] [place] [address] Dec, [facility] [address] [facility] [id number] [facility] [address] Dec, [facility] [place] [address] [facility] [address] [id number] [place] 473507889 Dec, [facility] [address] [facility] [id number] [facility] [address] Dec, [facility] [place] [address] [facility] [address] [id number] [place] 4[address]324[address] Dec, [facility] [address] [facility] [id number] [place] [address] Dec, [facility] [place] [address] [facility] [address] [id number] [place] 974126599 Nov, [facility] [address] [facility] [id number] [place] [address] Nov, [facility] [place] [facility] [address] [facility] [id number] [place] [address] Nov, [facility] [place] [address] [facility] [address] [id number] [place] 254307262 Nov, [facility] [place] [address] [id number] [place] 962545353 Nov, [facility] [address] [id number] [place] [address] Nov, [facility] [place] [address] [facility] [address] [id number] [place] [address] Oct, [facility] [place] [address] [facility] [address] [id number] [place] [address] Oct, [facility] [address] [facility] [id number] [place] [address] Oct, [facility] [address] [facility] [id number] [place] [address] Oct, [facility] [place] [address] [facility] [address] [id number] [place] [address] Sep, [facility] [address] [facility] [id number] [address] Sep, [facility] [place] [address] [facility] [address] [id number] [place] 466[address]246 Sep, [facility] [address] [facility] [id number], [place] [address] Sep, [facility] [place] [address] [facility] [address] [id number] [place] 87[address]000[address] Sep, [facility] [address] [facility] [id number], [place] [address] Sep, [facility] [place] [address] [facility] [address] [id number] [place] 635284941 Jul, [facility] [place] [facility] [address] [facility] [id number], [place] [address] Jul, [facility] [place] [facility] [address] [facility] [id number], [place] [address] Jan, [facility] [place] [facility] [address] [facility] [id number], [place] [address] Jan, [facility] [place] [address] [facility] [address] [id number] [place] [address] Dec, [facility] [address] [facility] [id number] [place] [address] Dec, [facility] [place] [address] [facility] [id number] [place] [id number] Oct, [facility] [address] [facility] [id number] [place] [address] Oct, IMMUNIZATIONS No Known Immunizations SOCIAL HISTORY Never Assessed REASON FOR VISIT Dear dr Robertson my right rib side around lungs and rib cage hurt, Been getting wo rse over five days now, also think left thumb is in trouble. feel like I am fall ing apart .. PLAN OF CARE VITAL SIGNS MEDICATIONS Unknown [...]
--- OUTSIDE RECORDS SUMMARY | 2019-05-19 17:22 | XMS REPORT ---
Author Author [facility]RISTIE ROBERTSON [facility] [place] Address [address] [place] [address] Care Team Providers Care Sales Warehouse Driver Name Role Phone KRISTIE ROEBRTSON Unavailable PROBLEMS Type Condition ICD9-CM Code GSC58-XW Code Onset Dates Condition Status SNOMED Code Problem Anxiety F41.9 Active 93085141 Problem Essential hypertension I10 Active 95293358 Problem Other ulcerative colitis without complication K51.80 Active 67034167 ALLERGIES No Information SOCIAL HISTORY Never Assessed PLAN OF CARE VITAL SIGNS MEDICATIONS No Known Medications RESULTS No Results PROCEDURES No Known [...]
--- OUTSIDE RECORDS SUMMARY | 2019-05-19 17:22 | XMS REPORT ---
Author KRISTIE Vega Organization [employer] Address Unknown Phone Unavailable Care Team Providers Care Pharmacy Service Associate Name Role Phone KRISTIE ROBERTSON CP Unavailable [...]
--- OUTSIDE RECORDS SUMMARY | 2019-05-19 17:23 | XMS REPORT ---
Author Author KRISTIE ROBERTSON Organization [facility] [place] Address [address] [place] [address] Care Team Providers Care Sleeve Maker Name Role Phone KRISTIE ROBERTSON Unavailable PROBLEMS Type Condition ICD9-CM Code IHM77-OQ Code Onset Dates Condition Status SNOMED Code Problem Anxiety F41.9 Active 46488628 Problem Essential hypertension I10 Active 51765007 Problem Other ulcerative colitis without complication K51.80 Active 43619088 ALLERGIES No Information ENCOUNTERS Encounter Location Date Diagnosis [facility] [place] [address] [facility] [address] [id number] [place] [id number] Mar, [facility] [place] [address] [facility] [address] [id number] [place] [id number] February, [facility] [place] [address] [place] [address] [address] [id number] [place] [id number] February, Bronchitis J40 [facility] [place] [address] [place] [address] [address] [id number] [place] [id number] Nov, [facility] [place] [address] [place] [address] [address] [id number] [place] [id number] Oct, [facility] [place] [address] [facility] [address] [id number] [place] [id number] Sep, Essential hypertension I10 [facility] [place] [address] [place] [address] [address] [id number] [place] [address] Sep, Tachycardia R00.0 ; Essential hypertension I10 and B12 deficiency E53.8 [facility] [place] [address] [facility] [address] [id number] [place] [address] Sep, [facility] [place] [address] [facility] [address] [id number] [place] [address] Aug, [facility] [place] [address] [facility] [address] [id number] [place] [address] Jun, Cough R05 and Bronchitis J40 [facility] [place] [address] [facility] [address] [id number] [place] [address] Jun, [facility] [place] [address] [facility] [address] [id number] [place] 6[address]48[address] May, Acute medial meniscus tear of right knee, initial encounter S83.241A [facility] [place] [address] [facility] [address] [id number] [place] [address] May, [facility] [place] [address] [facility] [address] [id number] [place] [address] Apr, [facility] [address] [facility] [id number] [facility] [place] [address] Apr, [facility] [place] [address] [facility] [address] [id number] [place] [address] Apr, Right medial knee pain M25.561 [facility] [place] [address] [facility] [address] [id number] [place] [address] Mar, [facility] [place] [address] [facility] [address] [id number] [place] [id number] February, [facility] [place] [address] [facility] [address] [id number] [place] [address]33[address] Jan, [facility] [place] [address] [facility] [address] [id number] [place] [address] Jan, [facility] [place] [address] [facility] [address] [id number] [place] [address] Jan, Other ulcerative colitis without complication K51.80 ; Irritable bowel syndrome with constipation K58.1 ; Anxiety F41.9 and Essential hypertension I10 [facility] [place] [address] [facility] [address] [id number] [place] [address] Dec, [facility] [place] [address] [facility] [address] [id number] [place] 5867[address]697 Dec, [facility] [place] [address] [facility] [address] [id number] [place] [address] Dec, [facility] [place] [address] [facility] [address] [id number] [place] 380[address]291 Nov, [facility] [place] [address] [facility] [address] [id number] [place] 533897492 Nov, [facility] [place] [address] [facility] [address] [id number] [place] [address]2701 Nov, [facility] [place] [address] [facility] [address] [id number] [place] [id number] Nov, [facility] [place] [address] [facility] [address] [id number] [place] [address] Nov, [facility] [place] [address] [facility] [address] [id number] [place] [address]87[address]248 Nov, [facility] [place] [address] [facility] [address] [id number] [place] 9[address] Oct, [facility] [place] [address] [facility] [address] [id number] [place] 9[address]2488 Oct, Other ulcerative colitis without complication K51.80 ; Irritable bowel syndrome with constipation K58.1 and Pneumonia of left lung due to infectious organism, unspecified part of lung J18.9 [facility] [place] [address] [facility] [id number] [place] [id number] Oct, [facility] [place] [address] [facility] [address] [id number] [place] [address]264[address] Oct, [facility] [place] [address] [facility] [address] [id number] [place] [address] Sep, [facility] [address] [facility] [id number] [place] [address] Aug, Acute bilateral low back pain without sciatica M54.5 [facility] [place] [address] [facility] [address] [id number] [place] [address] Aug, [facility] [place] [address] [facility] [address] [id number] [place] [address] Jul, [facility] [place] [address] [facility] [address] [id number] [place] 6[address] Jun, [facility] [place] [address] [facility] [address] [id number] [place] [address] Jun, [facility] [place] [address] [facility] [address] [id number] [place] [address] 14 Jun, 2016 [facility] [place] [address] [facility] [address] [id number] [place] [address] Jun, [facility] [place] [address] [facility] [address] [id number] [place] [address] May, Major depressive disorder, single episode, unspecified F32.9 ; Other ulcerative colitis without complication K51.80 and Osteoporosis M81.0 [facility] [place] [address] [facility] [address] [id number] [place] [id number] 15 May, 2016 [facility] [place] [address] [facility] [address] [id number] [place] 125857944 Apr, [facility] [place] [address] [facility] [address] [id number] [place] 928964890 Mar, [facility] [place] [address] [facility] [address] [id number] [place] 9[address]703674 February, [facility] [place] [address] [facility] [address] [id number] [place] 5[address]18[address] Jan, [facility] [place] [address] [facility] [address] [id number] [place] 851889227 Jan, [facility] [place] [address] [facility] [address] [id number] [place] 79[address]8946 Jan, Major depressive disorder, single episode, unspecified F32.9 ; Other ulcerative colitis without complication K51.80 ; Pharyngitis, unspecified etiology J02.9 and Essential hypertension with goal blood pressure less than 140\/90 I10 [facility] [place] [address] [facility] [address] [id number] [place] 108697[address] Jan, [facility] [place] [address] [facility] [address] [id number] [place] 445217859 Jan, [facility] [place] [address] [facility] [address] [id number] [place] 526[address]144 Dec, [facility] [place] [address] [facility] [address] [id number] [place] [address]110[address]43 Dec, Constipation K59.00 ; Nausea R11.0 and Encounter for therapeutic drug level monitoring Z51.81 [facility] [place] [address] [facility] [address] [id number] [place] 962578426 Nov, [facility] [place] [address] [facility] [address] [id number] [place] 945061647 Nov, [facility] [place] [address] [facility] [address] [id number] [place] 979259096 Oct, [facility] [place] [address] [facility] [address] [id number] [place] 803295011 Sep, [facility] [place] [address] [facility] [address] [id number] [place] 828025728 Aug, [facility] [place] [address] [facility] [address] [id number] [place] 315812998 Aug, [facility] [place] [address] [facility] [address] [id number] [place] 571968018 Aug, Chest pain, unspecified chest pain type R07.9 [facility] [place] [address] [facility] [address] [id number] [place] 122422894 Jul, [facility] [place] [address] [facility] [address] [id number] [place] [address]124 Jul, [facility] [place] [address] [facility] [address] [id number] [place] 237866984 Jul, [facility] [place] [address] [facility] [address] [id number] [place] 56[address]2372 Jul, Encounter for immunization Z23 [facility] [place] [address] [facility] [address] [id number] [place] 310147932 Jun, [facility] [place] [address] [facility] [address] [id number] [place] 897825776 May, [facility] [place] [address] [facility] [address] [id number] [place] 105348634 May, [facility] [place] [address] [facility] [address] [id number] [place] 558753272 Apr, [facility] [place] [address] [facility] [address] [id number] [place] 447775122 Mar, Sacroiliac joint pain 724.6 and Weight gain 783.1 [facility] [place] [address] [id number] [place] [address] Mar, [facility] [place] [address] [facility] [address] [id number] [place] 457978307 Mar, [facility] [place] [address] [facility] [address] [id number] [place] 437648185 February, [facility] [place] [facility] [address] [facility] [id number] [facility] [address] Jan, [facility] [address] [facility] [id number] [facility] [address] Jan, [facility] [place] [address] [facility] [address] [id number] [place] 2867[address]754 Dec, [facility] [place] [address] [facility] [address] [id number] [place] 866991968 Dec, [facility] [place] [facility] [address] [facility] [id number] [place] [address] Dec, [facility] [address] [facility] [id number] [facility] [address] Dec, [facility] [place] [address] [facility] [address] [id number] [place] 017151913 Dec, [facility] [address] [facility] [id number] [facility] [address] Dec, [facility] [place] [address] [facility] [address] [id number] [place] [id number] Dec, [facility] [address] [facility] [id number] [place] [address] Dec, [facility] [place] [address] [facility] [address] [id number] [place] 7[address]32[address] Nov, [facility] [address] [facility] [id number] [place] [address] Nov, [facility] [place] [facility] [address] [facility] [id number] [place] [address] Nov, [facility] [place] [address] [facility] [address] [id number] [place] 320369060 Nov, [facility] [place] [address] [id number] [place] 386901884 Nov, [facility] [address] [id number] [facility] [address] Nov, [facility] [place] [address] [facility] [address] [id number] [place] [id number] Oct, [facility] [place] [address] [facility] [address] [id number] [place] 213829198 Oct, [facility] [address] [facility] [id number] [place] [address] Oct, [facility] [address] [facility] [id number] [place] [address] Oct, [facility] [place] [address] [facility] [address] [id number] [place] [id number] Sep, [facility] [address] [facility] [id number] [address] Sep, [facility] [place] [address] [facility] [address] [id number] [place] 985004704 Sep, [facility] [address] [facility] [id number] [address] Sep, [facility] [place] [address] [facility] [address] [id number] [place] [id number] Sep, [facility] [address] [facility] [id number] [address] Sep, [facility] [place] [address] [facility] [address] [id number] [place], [place] 528[address]8416 Jul, [facility] [place] [facility] [address] [facility] [id number] [address] Jul, [facility] [place] [facility] [address] [facility] [id number] [address] Jan, [facility] [place] [facility] [address] [facility] [id number] [address] Jan, [facility] [address] [facility] [address] [id number] [place] [id number] Dec, [facility] [address] [facility] [id number] [place] [address] Dec, [facility] [address] [facility] [address] [id number] [place] [address] Oct, [facility] [address] [facility] [id number] [place] [address] Oct, IMMUNIZATIONS No Known Immunizations SOCIAL HISTORY Never Assessed [facility]IT [facility] Activity Details Follow Up prn Reason: VITAL SIGNS MEDICATIONS Unknown Medications RESULTS No Results PROCEDURES Procedure Date Ordered Result Body Site MANUAL CELL COUNT, EACH Oct 19, 2017 VENIPUNCT, ROUTINE* Oct 19, 2017 INSTRUCTIONS MEDICATIONS ADMINISTERED No Known Medications [...]
--- OUTSIDE RECORDS SUMMARY | 2019-05-19 17:23 | XMS REPORT ---
Author Author KRISTIE ROBERTSON [facility] [place] Address [address] [place] [address] Care Team Providers Care Personnel Officer Name Role Phone SHELDONKRISITE ESPINOSA Unavailable PROBLEMS Type Condition ICD9-CM Code KMM09-WI Code Onset Dates Condition Status SNOMED Code Problem Anxiety F41.9 Active 95898254 Problem Essential hypertension I10 Active 50298857 Problem Other ulcerative colitis without complication K51.80 Active 33246147 ALLERGIES No Information SOCIAL HISTORY Never Assessed PLAN OF CARE VITAL SIGNS MEDICATIONS Medication Instructions Dosage Frequency Start Date End Date Duration Status Diazepam 2MG Orally Twice a day Take 1 tablet 12h 28 days Active RESULTS No Results PROCEDURES No [...]
--- OUTSIDE RECORDS SUMMARY | 2019-05-19 17:23 | XMS REPORT ---
Author YENI Alejandre Organization [employer] Address Unknown Phone Unavailable Care Team Providers Care Professor Of German Name Role Phone YENI KELLEY CP Unavailable Allergies No Known Allergies Problems [...] Instructions Start Date End Date Status Dosage Promethazine HCl [facility] [address]-83 25 MG Orally every 12 hrs Sep 06, 2015 1 tablet as needed Results No Known Results Summary Purpose [employer] Submission
--- OUTSIDE RECORDS SUMMARY | 2019-05-19 17:23 | XMS REPORT ---
Author Author KRISTIE ROBERTSON [facility] Address [address] [place] [address] Care Team Providers Care Safety Grooving Machine Operator Name Role Phone KRISTIE ROBERTSON Unavailable PROBLEMS Type Condition ICD9-CM Code TRF88-SE Code Onset Dates Condition Status SNOMED Code Problem Anxiety F41.9 Active 30319991 Problem Essential hypertension I10 Active 25316260 Problem Other ulcerative colitis without complication K51.80 Active 58070259 ALLERGIES Unknown Allergies SOCIAL HISTORY No smoking Hx information available PLAN OF CARE VITAL SIGNS MEDICATIONS Unknown Medications RESULTS No Results PROCEDURES No Known procedures IMMUNIZATIONS No Known Immunizations
--- OUTSIDE RECORDS SUMMARY | 2019-05-19 17:23 | XMS REPORT ---
Author Author ARABELLA HAJI [facility] Address [address] [place] [address] Care Team Providers Care Pharmacovigilance Specialist Name Role Phone ARABELLA HAJI Unavailable PROBLEMS Type Condition ICD9-CM Code NYF10-RX Code Onset Dates Condition Status SNOMED Code Problem Anxiety F41.9 Active 44514476 Problem Essential hypertension I10 Active 80280191 Problem Other ulcerative colitis without complication K51.80 Active 42097259 ALLERGIES No Information SOCIAL HISTORY Never Assessed [...]
--- OUTSIDE RECORDS SUMMARY | 2019-05-19 17:23 | XMS REPORT ---
Author Author KRISTIE ROBERTSON Organization [facility] [place] Address [address] [place] [address] Care Team Providers Care Channel Marketing Program Manager Name Role Phone KRISTIE ROBERTSON Unavailable PROBLEMS Type Condition ICD9-CM Code LRQ34-JG Code Onset Dates Condition Status SNOMED Code Problem Anxiety F41.9 Active 67400654 Problem Essential hypertension I10 Active 18590968 Problem Other ulcerative colitis without complication K51.80 Active 24804364 ALLERGIES No Information ENCOUNTERS Encounter Location Date Diagnosis [facility] [place] [address] [facility] [address] [id number] [place] [id number] Nov, [facility] [place] [address] [facility] [address] [id number] [place] [id number] Oct, [facility] [place] [address] [facility] [address] [id number] [place] [id number] Sep, Essential hypertension I10 [facility] [place] [address] [place] [address] [address] [id number] [place] [address] Sep, Tachycardia R00.0 ; Essential hypertension I10 and B12 deficiency E53.8 [facility] [place] [address] [facility] [address] [id number] [place] [id number] Sep, [facility] [place] [address] [facility] [address] [id number] [place] [id number] Aug, [facility] [place] [address] [facility] [address] [id number] [place] [id number] 18 Jun, 2017 Cough R05 and Bronchitis J40 [facility] [place] [address] [facility] [address] [id number] [place] [address] Jun, [facility] [place] [address] [facility] [address] [id number] [place] [address] May, Acute medial meniscus tear of right knee, initial encounter S83.241A [facility] [place] [address] [facility] [address] [id number] [place] [id number] May, [facility] [place] [address] [facility] [address] [id number] [place] [id number] Apr, [facility] [address] [facility] [id number] [place] [address] Apr, [facility] [place] [address] [facility] [address] [id number] [place] [address] Apr, Right medial knee pain M25.561 [facility] [place] [address] [facility] [address] [id number] [place] [id number] Mar, [facility] [place] [address] [facility] [address] [id number] [place] [id number] February, [facility] [place] [address] [facility] [address] [id number] [place] [address] Jan, [facility] [place] [address] [facility] [address] [id number] [place] [address] Jan, [facility] [place] [address] [facility] [address] [id number] [place] [address] Jan, Other ulcerative colitis without complication K51.80 ; Irritable bowel syndrome with constipation K58.1 ; Anxiety F41.9 and Essential hypertension I10 [facility] [place] [address] [facility] [address] [id number] [place] [id number] Dec, [facility] [place] [address] [facility] [address] [id number] [place] [id number] Dec, [facility] [place] [address] [facility] [address] [id number] [place] [address] Dec, [facility] [place] [address] [facility] [address] [id number] [place] [id number] Nov, [facility] [place] [address] [facility] [address] [id number] [place] [id number] Nov, [facility] [place] [address] [facility] [address] [id number] [place] [address] Nov, [facility] [place] [address] [facility] [address] [id number] [place] [address] Nov, [facility] [place] [address] [facility] [address] [id number] [place] [address] Nov, [facility] [place] [address] [facility] [address] [id number] [place] [address] Nov, [facility] [place] [address] [facility] [address] [id number] [place] [address] Oct, [facility] [place] [address] [facility] [address] [id number] [place] [address] Oct, Other ulcerative colitis without complication K51.80 ; Irritable bowel syndrome with constipation K58.1 and Pneumonia of left lung due to infectious organism, unspecified part of lung J18.9 [facility] [place] [address] [id number] [place] [id number] Oct, [facility] [place] [address] [facility] [address] [id number] [place] [address] Oct, [facility] [place] [address] [facility] [address] [id number] [place] [address] Sep, [facility] [address] [facility] [id number] [facility] [place] [address] Aug, Acute bilateral low back pain without sciatica M54.5 [facility] [place] [address] [facility] [address] [id number] [place] [id number] Aug, [facility] [place] [address] [facility] [address] [id number] [place] [address] Jul, [facility] [place] [address] [facility] [address] [id number] [place] [address] Jun, [facility] [place] [address] [facility] [address] [id number] [place] [address] Jun, [facility] [place] [address] [facility] [address] [id number] [place] [address] Jun, [facility] [place] [address] [facility] [address] [id number] [place] [address] Jun, [facility] [place] [address] [facility] [address] [id number] [place] [address] May, Major depressive disorder, single episode, unspecified F32.9 ; Other ulcerative colitis without complication K51.80 and Osteoporosis M81.0 [facility] [place] [address] [facility] [address] [id number] [place] [address] May, [facility] [place] [address] [facility] [address] [id number] [place] [address] Apr, [facility] [place] [address] [facility] [address] [id number] [place] [address] Mar, [facility] [place] [address] [facility] [address] [id number] [place] [address] February, [facility] [place] [address] [facility] [address] [id number] [place] [address] Jan, [facility] [place] [address] [facility] [address] [id number] [place] [address] Jan, [facility] [place] [address] [facility] [address] [id number] [place] [address] Jan, Major depressive disorder, single episode, unspecified F32.9 ; Other ulcerative colitis without complication K51.80 ; Pharyngitis, unspecified etiology J02.9 and Essential hypertension with goal blood pressure less than 140\/90 I10 [facility] [place] [address] [facility] [address] [id number] [place] [address] Jan, [facility] [place] [address] [facility] [address] [id number] [place], [place] [address]88[address] Jan, [facility] [place] [address] [facility] [address] [id number] [place] [address] Dec, [facility] [place] [address] [facility] [address] [id number] [place] [address] Dec, Constipation K59.00 ; Nausea R11.0 and Encounter for therapeutic drug level monitoring Z51.81 [facility] [place] [address] [facility] [address] [id number] [place] [id number] Nov, [facility] [place] [address] [facility] [address] [id number] [place] [id number] Nov, [facility] [place] [address] [facility] [address] [id number] [place] [id number] Oct, [facility] [place] [address] [facility] [address] [id number] [place] [address] Sep, [facility] [place] [address] [facility] [address] [id number] [place] [address]186 Aug, [facility] [place] [address] [facility] [address] [id number] [place] 8[address]2288[address] Aug, [facility] [place] [address] [facility] [address] [id number] [place] 95[address] Aug, Chest pain, unspecified chest pain type R07.9 [facility] [place] [address] [facility] [address] [id number] [place] [id number] Jul, [facility] [place] [address] [facility] [address] [id number] [place] 609[address]230[address] Jul, [facility] [place] [address] [facility] [address] [id number] [place] [address] Jul, [facility] [place] [address] [facility] [address] [id number] [place] [address] Jul, Encounter for immunization Z23 [facility] [place] [address] [facility] [address] [id number] [place] [address] Jun, [facility] [place] [address] [facility] [address] [id number] [place] [id number] May, [facility] [place] [address] [facility] [address] [id number] [place] [address] May, [facility] [place] [address] [facility] [address] [id number] [place] [id number] Apr, [facility] [place] [address] [facility] [address] [id number] [place] 7170832[address] Mar, Sacroiliac joint pain 724.6 and Weight gain 783.1 [facility] [place] [address] [facility] [address] [id number] [place] 841344878 Mar, [facility] [place] [address] [facility] [address] [id number] [place] [address]79[address]84[address] Mar, [facility] [place] [address] [facility] [address] [id number] [place] [id number] February, [facility] [place] [address] [facility] [id number] [place] [address] 14 Jan, 2015 [facility] [address] [facility] [id number] [place] [address] Jan, [facility] [place] [address] [facility] [address] [id number] [place] 9[address]64[address] Dec, [facility] [place] [address] [facility] [address] [id number] [place] [address]9999[address] Dec, [facility] [place] [facility] [address] [facility] [id number] [place] [address] Dec, [facility] [address] [facility] [id number] [place] [address] Dec, [facility] [place] [address] [facility] [address] [id number] [place] [id number] Dec, [facility] [address] [facility] [id number] [place] [address] Dec, [facility] [place] [address] [facility] [address] [id number] [place] [address] Dec, [facility] [address] [facility] [id number] [place] [address] Dec, [facility] [place] [address] [facility] [address] [id number] [place] [id number] Nov, [facility] [place] [facility] [address] [facility] [id number] [place] [address] Nov, [facility] [place] [facility] [address] [facility] [id number] [place] [address] Nov, [facility] [place] [address] [facility] [address] [id number] [place] [address] Nov, [facility] [place] [address] [facility] [address] [id number] [place] [id number] Nov, [facility] [place] [facility] [address] [facility] [id number] [place] [address] Nov, [facility] [place] [address] [id number] [place] [address] Oct, [facility] [place] [address] [facility] [address] [id number] [place] 54[address]86184 Oct, [facility] [place] [facility] [address] [id number] [place] [address] Oct, [facility] [place] [facility] [address] [id number] [place] [address] Oct, [facility] [place] [address] [facility] [address] [id number] [place] [id number] Sep, [facility] [place] [facility] [address] [id number] [place] [address] Sep, [facility] [place] [address] [facility] [address] [id number] [place] 213[address]67[address] Sep, [facility] [place] [facility] [address] [facility] [id number] [facility] [place] [address] Sep, [facility] [place] [address] [facility] [address] [id number] [place] [id number] Sep, [facility] [place] [facility] [address] [id number] [place] [address] Sep, [facility] [place] [address] [facility] [address] [id number] [place] [id number] Jul, [facility] [place] [facility] [address] [facility] [id number] [facility] [place] [address] Jul, [facility] [place] [facility] [address] [id number] [facility] [place] [address] Jan, [facility] [place] [facility] [address] [id number] [place] [address] Jan, [facility] [place] [address] [facility] [address] [id number] [place] [id number] Dec, [facility] [place] [facility] [address] [id number] [place] [address] Dec, [facility] [place] [address] [facility] [address] [id number] [place] [id number] Oct, [facility] [place] [address] [facility] [id number] [place] [address] Oct, IMMUNIZATIONS No Known Immunizations SOCIAL HISTORY Never Assessed REASON FOR VISIT refill request PLAN OF CARE VITAL SIGNS MEDICATIONS Medication [...]
--- OUTSIDE RECORDS SUMMARY | 2019-05-19 17:23 | XMS REPORT ---
Author Author KRISTIE ROBERTSON Organization [facility] [place] Address [address] [place] [address] Care Team Providers Care Cushion Maker Hand Name Role Phone RKISTIE ROBERTSON Unavailable PROBLEMS Type Condition ICD9-CM Code GNJ24-TY Code Onset Dates Condition Status SNOMED Code Problem Anxiety F41.9 Active 60935551 Problem Essential hypertension I10 Active 11882423 Problem Other ulcerative colitis without complication K51.80 Active 58691905 ALLERGIES No Information ENCOUNTERS Encounter Location Date Diagnosis [facility] [place] [address] [facility] [address] [id number] [place] [id number] Mar, [facility] [place] [address] [facility] [address] [id number] [place] [id number] February, [facility] [place] [address] [place] [address] [address] [id number] [place] [address] February, Bronchitis J40 [facility] [place] [address] [place] [address] [address] [id number] [place] [id number] Nov, [facility] [place] [address] [place] [address] [address] [id number] [place] [id number] Oct, [facility] [place] [address] [facility] [address] [id number] [place] [address] Sep, Essential hypertension I10 [facility] [place] [address] [place] [address] [address] [id number] [place] [id number] Sep, Tachycardia R00.0 ; Essential hypertension I10 and B12 deficiency E53.8 [facility] [place] [address] [facility] [address] [id number] [place] [address] Sep, [facility] [place] [address] [facility] [address] [id number] [place] [id number] Aug, [facility] [place] [address] [facility] [address] [id number] [place] [address] Jun, Cough R05 and Bronchitis J40 [facility] [place] [address] [facility] [address] [id number] [place] [address] Jun, [facility] [place] [address] [facility] [address] [id number] [place] [address] May, Acute medial meniscus tear of right knee, initial encounter S83.241A [facility] [place] [address] [facility] [address] [id number] [place] [address] May, [facility] [place] [address] [facility] [address] [id number] [place] [address] Apr, [facility] [address] [facility] [id number] [facility] [place] [address] Apr, [facility] [place] [address] [facility] [address] [id number] [place] [id number] Apr, Right medial knee pain M25.561 [facility] [place] [address] [facility] [address] [id number] [place] [id number] Mar, [facility] [place] [address] [facility] [address] [id number] [place] [id number] February, [facility] [place] [address] [facility] [address] [id number] [place] [id number] Jan, [facility] [place] [address] [facility] [address] [id number] [place] [address] Jan, [facility] [place] [address] [facility] [address] [id number] [place] [address] Jan, Other ulcerative colitis without complication K51.80 ; Irritable bowel syndrome with constipation K58.1 ; Anxiety F41.9 and Essential hypertension I10 [facility] [place] [address] [facility] [address] [id number] [place] [address] Dec, [facility] [place] [address] [facility] [address] [id number] [place] 36[address] Dec, [facility] [place] [address] [facility] [address] [id number] [place] [address] Dec, [facility] [place] [address] [facility] [address] [id number] [place] [id number] Nov, [facility] [place] [address] [facility] [address] [id number] [place] [id number] Nov, [facility] [place] [address] [facility] [address] [id number] [place] [address] Nov, [facility] [place] [address] [facility] [address] [id number] [place] [address]707 Nov, [facility] [place] [address] [facility] [address] [id number] [place] [address] Nov, [facility] [place] [address] [facility] [address] [id number] [place] [id number] Nov, [facility] [place] [address] [facility] [address] [id number] [place] [id number] Oct, [facility] [place] [address] [facility] [address] [id number] [place] [address] Oct, Other ulcerative colitis without complication K51.80 ; Irritable bowel syndrome with constipation K58.1 and Pneumonia of left lung due to infectious organism, unspecified part of lung J18.9 [facility] [place] [address] [facility] [id number] [place] [id number] Oct, [facility] [place] [address] [facility] [address] [id number] [place] [address] Oct, [facility] [place] [address] [facility] [address] [id number] [place] [address] Sep, [facility] [address] [facility] [id number] [place] [address] Aug, Acute bilateral low back pain without sciatica M54.5 [facility] [place] [address] [facility] [address] [id number] [place] [address] Aug, [facility] [place] [address] [facility] [address] [id number] [place] [address] Jul, [facility] [place] [address] [facility] [address] [id number] [place] [address] Jun, [facility] [place] [address] [facility] [address] [id number] [place] [address] Jun, [facility] [place] [address] [facility] [address] [id number] [place] [address] 14 Jun, 2016 [facility] [place] [address] [facility] [address] [id number] [place] [address]999996 Jun, [facility] [place] [address] [facility] [address] [id number] [place] [address] May, Major depressive disorder, single episode, unspecified F32.9 ; Other ulcerative colitis without complication K51.80 and Osteoporosis M81.0 [facility] [place] [address] [facility] [address] [id number] [place] [id number] 15 May, 2016 [facility] [place] [address] [facility] [address] [id number] [place] [id number] Apr, [facility] [place] [address] [facility] [address] [id number] [place] 688973576 Mar, [facility] [place] [address] [facility] [address] [id number] [place] [id number] February, [facility] [place] [address] [facility] [address] [id number] [place] 9139632[address] Jan, [facility] [place] [address] [facility] [address] [id number] [place] [address] Jan, [facility] [place] [address] [facility] [address] [id number] [place] [address] Jan, Major depressive disorder, single episode, unspecified F32.9 ; Other ulcerative colitis without complication K51.80 ; Pharyngitis, unspecified etiology J02.9 and Essential hypertension with goal blood pressure less than 140\/90 I10 [facility] [place] [address] [facility] [address] [id number] [place] [address] Jan, [facility] [place] [address] [facility] [address] [id number] [place] 8[address]442651 Jan, [facility] [place] [address] [facility] [address] [id number] [place] 12[address] Dec, [facility] [place] [address] [facility] [address] [id number] [place] [address] Dec, Constipation K59.00 ; Nausea R11.0 and Encounter for therapeutic drug level monitoring Z51.81 [facility] [place] [address] [facility] [address] [id number] [place] [id number] Nov, [facility] [place] [address] [facility] [address] [id number] [place] 685[address]4568 Nov, [facility] [place] [address] [facility] [address] [id number] [place] 37[address]430 Oct, [facility] [place] [address] [facility] [address] [id number] [place] 778908114 Sep, [facility] [place] [address] [facility] [address] [id number] [place] [address] Aug, [facility] [place] [address] [facility] [address] [id number] [place] 897[address]1497 Aug, [facility] [place] [address] [facility] [address] [id number] [place] [address] Aug, Chest pain, unspecified chest pain type R07.9 [facility] [place] [address] [facility] [address] [id number] [place], [place] [id number] Jul, [facility] [place] [address] [facility] [address] [id number] [place] [id number] Jul, [facility] [place] [address] [facility] [address] [id number] [place] 148724896 Jul, [facility] [place] [address] [facility] [address] [id number] [place] 3105[address]478 Jul, Encounter for immunization Z23 [facility] [place] [address] [facility] [address] [id number] [place] [id number] Jun, [facility] [place] [address] [facility] [address] [id number] [place] 410531307 May, [facility] [place] [address] [facility] [address] [id number] [place], [place] 89[address]265[address] May, [facility] [place] [address] [facility] [address] [id number] [place] 318894183 Apr, [facility] [place] [address] [facility] [address] [id number] [place] 475[address] Mar, Sacroiliac joint pain 724.6 and Weight gain 783.1 [facility] [place] [address] [id number] [place] [id number] Mar, [facility] [place] [address] [facility] [address] [id number] [place] 85[address] Mar, [facility] [place] [address] [facility] [address] [id number] [place] 59857[address] February, [facility] [place] [facility] [facility] [address] [facility] [id number] [facility] [place] [address] Jan, [facility] [address] [facility] [id number] [facility] [place] [address] Jan, [facility] [place] [address] [facility] [address] [id number] [place] 005293919 Dec, [facility] [place] [address] [facility] [address] [id number] [place] 9657[address]659 Dec, [facility] [address] [facility] [id number] [place] [address] Dec, [facility] [address] [facility] [id number] [facility] [place] [address] Dec, [facility] [place] [address] [facility] [address] [id number] [place] [id number] Dec, [facility] [address] [facility] [id number] [facility] [place] [address] Dec, [facility] [place] [address] [facility] [address] [id number] [place] 993407890 Dec, [facility] [address] [facility] [id number] [place] [address] Dec, [facility] [place] [address] [facility] [address] [id number] [place] 835587425 Nov, [facility] [address] [facility] [id number] [place] [address] Nov, [facility] [place] [facility] [address] [facility] [id number] [place] [address] Nov, [facility] [place] [address] [facility] [address] [id number] [place] [id number] Nov, [facility] [place] [address] [id number] [place] 7847049[address] Nov, [facility] [address] [id number] [facility] [place] [address] Nov, [facility] [place] [address] [facility] [address] [id number] [place] 5[address] Oct, [facility] [place] [address] [facility] [address] [id number] [place] 011676485 Oct, [facility] [address] [facility] [id number] [place] [address] Oct, [facility] [address] [facility] [id number] [place] [address] Oct, [facility] [place] [address] [facility] [address] [id number] [place] [id number] Sep, [facility] [address] [facility] [id number][place] [address] Sep, [facility] [place] [address] [facility] [address] [id number] [place] [address]48[address]28 Sep, [facility] [address] [facility] [id number], [place] [address] Sep, [facility] [place] [address] [facility] [address] [id number] [place] [address]34[address] Sep, [facility] [address] [facility] [id number], [place] [address] Sep, [facility] [place] [address] [facility] [address] [id number] [place] 578587188 Jul, [facility] [place] [facility] [address] [facility] [id number], [place] [address] Jul, [facility] [place] [facility] [address] [facility] [id number], [place] [address] Jan, [facility] [place] [facility] [address] [facility] [id number], [place] [address] Jan, [facility] [place] [address] [facility] [address] [id number] [place] [address] Dec, [facility] [address] [facility] [id number] [place] [address] Dec, [facility] [address] [facility] [address] [id number] [place] 095[address] Oct, [facility] [address] [facility] [id number] [place] [address] Oct, IMMUNIZATIONS No Known Immunizations SOCIAL HISTORY Never Assessed REASON FOR VISIT Controlled Med Refill PLAN OF CARE VITAL SIGNS MEDICATIONS Medication Instructions Dosage Frequency Start Date End Date Duration Status Metoprolol Tartrate 100 mg TAKE ONE TABLET BY MOUTH ONCE DAILY WITH A MEAL 30 Active RESULTS No Results PROCEDURES No [...]
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
--- OUTSIDE RECORDS SUMMARY | 2019-05-19 17:25 | XMS REPORT ---
Author Author KRISTIE ROBERTSON [facility] Address [address] [place] [address] Care Team Providers Care Sampler Tester Name Role Phone KRISTIE ROBERTSON Unavailable PROBLEMS Type Condition ICD9-CM Code [id number] Code Onset Dates Condition Status SNOMED Code Problem Acute sinusitis, unspecified 461.9 Active 15879841 Problem Palpitations 785.1 Active 96245306 Problem Headache 784.0 Active 54758236 Problem Anxiety state, unspecified 300.00 Active 226427936 Problem Depressive disorder, not elsewhere classified 311 Active 26996262 Problem Mononeuritis of unspecified site 355.9 Active 01341432 Problem Chest pain, unspecified 786.50 Active 74265107 Problem 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 Active 01499333 Problem Other malaise and fatigue 780.79 Active 402202929 Assessment Major depressive disorder, single episode, unspecified F32.9 May, Active 21134016 Problem Acute upper respiratory infections of unspecified site 465.9 Active 80434720 Assessment Osteoporosis M81.0 May, Active 70057018 Assessment Other ulcerative colitis without complication K51.80 May, Active 29586936 Problem Nausea with vomiting 787.01 Active 75552406 Problem Counseling on substance use and abuse V65.42 Active 453347497 Problem Sciatica 724.3 Active 75644926 Problem Fever, unspecified 780.60 Active 782408259 Problem Nondependent tobacco use disorder 305.1 Active 440265134 Problem Intestinal infection due to other organism, NEC 008.8 Active 19173838 ALLERGIES Substance Reaction Event Type Date Status Lortab Unknown Drug Allergy May, Active Hepatitis B Vac Recombinant Unknown Drug Allergy May, Active Vera-e Eye Oint Unknown Non Drug Allergy May, Active Bee Venom Unknown Non Drug Allergy May, Active SOCIAL HISTORY No smoking Hx information available PLAN OF CARE VITAL SIGNS MEDICATIONS Medication Instructions Dosage Frequency Start Date End Date Duration Status Aspir-Low 81 MG Orally Once a day 1 tablet 24h Active Gabapentin 300MG take 1 capsule by Oral route 2 times per day 30 Active Meloxicam 15MG TAKE ONE TABLET BY MOUTH ONCE DAILY 90 Active Diazepam 2MG TAKE ONE TABLET BY MOUTH TWICE DAILY. 28 Active Diazepam 2 MG take 1 tablet (2 mg) by oral route 2 times per day Dec, Active MiraLax 3350 Orally Once a day dissolved in 4-8 oz of fluid Take 1-2 capful Dec, Active Lexapro 10 mg Orally Once a day 1 tablet 24h 90 Active Metoprolol Tartrate 100MG take 1 tablet (100 mg) by oral route once daily with a meal 30 Active Cyclobenzaprine HCl 10 MG 1 tablet 15 Active RESULTS No Results PROCEDURES Procedure Date Ordered Related Diagnosis Body Site Office Visit, Est Pt., Level 3 Jun 22, 2016 IMMUNIZATIONS No Known Immunizations
--- OUTSIDE RECORDS SUMMARY | 2019-05-19 17:25 | XMS REPORT ---
Author Author [facility]SON [facility] Address [address] [place] [address] Care Team Providers Care Digital Marketing Associate Name Role Phone KRISTIE ROBERTSON Unavailable PROBLEMS Type Condition ICD9-CM Code LXP25-[id number] Code Onset Dates Condition Status SNOMED Code Problem Anxiety F41.9 Active 46538544 Problem Essential hypertension I10 Active 06342750 Problem Other ulcerative colitis without complication K51.80 Active 57390053 ALLERGIES No Information SOCIAL HISTORY Never Assessed [...]
--- OUTSIDE RECORDS SUMMARY | 2019-05-19 17:25 | XMS REPORT | Continuity of Care Document ---
Author Organization Unknown Address Unknown Allergies There is no data. Medications There is no data. Problems There is no data. Procedures There is no data. Results Test Result Range VITAMIN B12 - 10/09/17 16:34 VITAMIN B12 724 pg/mL 200-1100 TSH - 10/09/17 16:34 TSH 0.83 mIU/L NRG CBC w/MANUAL DIFF - 10/19/17 16:08 WHITE BLOOD CELL COUNT 7.4 Thousand/uL 3.8-10.8 RED BLOOD CELL COUNT 4.78 Million/uL 3.80-5.10 HEMOGLOBIN 13.8 g/dL 11.7-15.5 HEMATOCRIT 41.2 % 35.0-45.0 MCV 86.2 fL 80.0-100.0 MCH 28.9 pg 27.0-33.0 MCHC 33.5 g/dL 32.0-36.0 RDW 12.6 % 11.0-15.0 PLATELET COUNT 335 Thousand/uL 140-400 MPV 9.6 fL 7.5-12.5 ABSOLUTE NEUTROPHILS 3626 cells/uL 3980-7553 ABSOLUTE MONOCYTES 74 cells/uL 200-950 ABSOLUTE EOSINOPHILS 377 cells/uL 15-500 ABSOLUTE BASOPHILS 0 cells/uL 0-200 NEUTROPHILS 49.0 % NRG LYMPHOCYTES 44.9 % NRG MONOCYTES 1.0 % NRG EOSINOPHILS 5.1 % NRG BASOPHILS 0 % NRG ABSOLUTE LYMPHOCYTES 3323 cells/uL 850-3900 PLATELET ESTIMATION ADEQUATE ADEQUATE COMMENT(S) NRG CMP - 02/27/19 15:24 GLUCOSE 85 mg/dL 65-139 UREA NITROGEN (BUN) 11 mg/dL 7-25 CREATININE 0.85 mg/dL 0.50-1.10 eGFR NON-AFR. [place] 81 mL/min/1.73m2 > OR=60 eGFR 94 mL/min/1.73m2 > OR=60 BUN/CREATININE RATIO NOT APPLICABLE (calc) 6-22 SODIUM 140 mmol/L 135-146 POTASSIUM 4.2 mmol/L 3.5-5.3 CHLORIDE 103 mmol/L 98-110 CARBON DIOXIDE 28 mmol/L 20-32 CALCIUM 10.0 mg/dL 8.6-10.2 PROTEIN, TOTAL 7.5 g/dL 6.1-8.1 ALBUMIN 4.5 g/dL 3.6-5.1 GLOBULIN 3.0 g/dL (calc) 1.9-3.7 ALBUMIN/GLOBULIN RATIO 1.5 (calc) 1.0-2.5 BILIRUBIN, TOTAL 0.5 mg/dL 0.2-1.2 ALKALINE PHOSPHATASE 64 U/L 33-115 AST 21 U/L 10-35 ALT 29 U/L 6-29 CBC - 02/27/19 15:24 WHITE BLOOD CELL COUNT 6.2 Thousand/uL 3.8-10.8 RED BLOOD CELL COUNT 4.74 Million/uL 3.80-5.10 HEMOGLOBIN 13.7 g/dL 11.7-15.5 HEMATOCRIT 41.2 % 35.0-45.0 MCV 86.9 fL 80.0-100.0 MCH 28.9 pg 27.0-33.0 MCHC 33.3 g/dL 32.0-36.0 RDW 12.6 % 11.0-15.0 PLATELET COUNT 304 Thousand/uL 140-400 MPV 9.5 fL 7.5-12.5 ABSOLUTE NEUTROPHILS 3038 cells/uL 2259-6816 ABSOLUTE LYMPHOCYTES 2344 cells/uL 850-3900 ABSOLUTE MONOCYTES 546 cells/uL 200-950 ABSOLUTE EOSINOPHILS 211 cells/uL 15-500 ABSOLUTE BASOPHILS 62 cells/uL 0-200 NEUTROPHILS 49 % NRG LYMPHOCYTES 37.8 % NRG MONOCYTES 8.8 % NRG EOSINOPHILS 3.4 % NRG BASOPHILS 1.0 % NRG ESR/SED RATE - 02/27/19 15:24 SED RATE BY MODIFIED WESTERGREN 22 mm/h < OR=20 Encounters ACCT No. Visit Date/Time Discharge Status Pt. Type Provider Facility Loc./Unit Complaint [id number] 04/07/2019 09:00:00 04/07/2019 23:59:59 CLS Outpatient KRISTIE ROBERTSON [facility] [id number] 02/27/2019 15:00:00 Document Registration [id number] 10/19/2017 15:30:00 Document Registration [id number] 10/09/2017 15:40:00 Document Registration
--- OUTSIDE RECORDS SUMMARY | 2019-05-19 17:25 | XMS REPORT ---
Author ARABELLA Sherman Organization [employer] Address Unknown Phone Unavailable Care Team Providers Care Plant Operations Worker Name Role Phone ARABELLA HAJI CP Unavailable [...] Start Date End Date Status Dosage Diazepam [facility] [address]-19 2 MG January 20, 2015 take 1 tablet (2 mg) by oral route 2 times per day Results No Known Results Summary Purpose [employer] Submission
--- OUTSIDE RECORDS SUMMARY | 2019-05-19 17:25 | XMS REPORT ---
Author Author [facility]SON [facility] Address [address] [place] [address] Care Team Providers Care Motor Builder Assembler Name Role Phone KRISTIE ROBERTSON Unavailable PROBLEMS Type Condition ICD9-CM Code [id number] Code Onset Dates Condition Status SNOMED Code Problem Acute sinusitis, unspecified 461.9 Active 52333626 Problem Palpitations 785.1 Active 77576245 Problem Headache 784.0 Active 97926352 Problem Anxiety state, unspecified 300.00 Active 306070182 Problem Depressive disorder, not elsewhere classified 311 Active 64846015 Problem Mononeuritis of unspecified site 355.9 Active 89591810 Problem Chest pain, unspecified 786.50 Active 03118899 Problem 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 Active 48822775 Problem Other malaise and fatigue 780.79 Active 785549329 Problem Acute upper respiratory infections of unspecified site 465.9 Active 40011695 Problem Nausea with vomiting 787.01 Active 31244373 Problem Counseling on substance use and abuse V65.42 Active 516689911 Problem Sciatica 724.3 Active 89094393 Problem Fever, unspecified 780.60 Active 202272018 Problem Nondependent tobacco use disorder 305.1 Active 527739954 Problem Intestinal infection due to other organism, NEC 008.8 Active 76957546 ALLERGIES Unknown Allergies SOCIAL HISTORY No smoking Hx information available PLAN OF CARE VITAL SIGNS MEDICATIONS Medication Instructions Dosage Frequency Start Date End Date Duration Status Cyclobenzaprine HCl 10 mg 1 tablet Active RESULTS No Results PROCEDURES No Known procedures IMMUNIZATIONS No Known Immunizations
--- OUTSIDE RECORDS SUMMARY | 2019-05-19 17:25 | XMS REPORT ---
Author KRISTIE Vega Organization [employer] Address Unknown Phone Unavailable Care Team Providers Care Field Observer Name Role Phone KRISTIE ROBERTSON CP Unavailable [...] Mononeuritis of unspecified site 355.9 Active Assessment Acute bilateral low back pain without sciatica M54.5 Active Problem Nondependent tobacco use disorder 305.1 Active Problem Nausea with vomiting 787.01 Active Problem Acute upper respiratory infections of unspecified site 465.9 Active Problem Counseling on substance use and abuse V65.42 Active Problem Sciatica 724.3 Active Problem Fever, unspecified 780.60 Active Medications Medication Code System Code Instructions Start Date End Date Status Dosage Valium [facility] [address]-92 5 mg Orally Twice a day Sep 19, 2016 1 tablet as needed Results No Known Results Summary Purpose [employer] Submission
--- OUTSIDE RECORDS SUMMARY | 2019-05-19 17:25 | XMS REPORT ---
Author Author KRISTIE ROBERTSON Organization [facility] [place] Address [address] [place] [address] Care Team Providers Care Field Nurse Case Manager Name Role Phone KRISTIE ROBERTSON Unavailable PROBLEMS Type Condition ICD9-CM Code DEE21-VN Code Onset Dates Condition Status SNOMED Code Problem Anxiety F41.9 Active 36877822 Problem Essential hypertension I10 Active 66452820 Problem Other ulcerative colitis without complication K51.80 Active 79983707 ALLERGIES No Information ENCOUNTERS Encounter Location Date Diagnosis [facility] [place] [address] [id number] [place] [id number] Nov, [facility] [place] [address] [id number] [place] [id number] Oct, [facility] [place] [address] [facility] [address] [id number] [place] [id number] Sep, Essential hypertension I10 [facility] [place] [address] [place] [address] [address] [id number] [place] [id number] Sep, Tachycardia R00.0 ; Essential hypertension I10 and B12 deficiency E53.8 [facility] [place] [address] [facility] [address] [id number] [place] [id number] Sep, [facility] [place] [address] [id number] [place] [id number] Aug, [facility] [place] [address] [facility] [address] [id number] [place] [id number] 18 Jun, 2017 Cough R05 and Bronchitis J40 [facility] [place] [address] [facility] [address] [id number] [place] [id number] Jun, [facility] [place] [address] [facility] [address] [id number] [place] [address] May, Acute medial meniscus tear of right knee, initial encounter S83.241A [facility] [place] [address] [facility] [address] [id number] [place] [id number] May, [facility] [place] [address] [facility] [address] [id number] [place] [id number] Apr, [facility] [address] [facility] [id number] [place] [address] Apr, [facility] [place] [address] [facility] [address] [id number] [place] [id number] Apr, Right medial knee pain M25.561 [facility] [place] [address] [facility] [address] [id number] [place] [id number] Mar, [facility] [place] [address] [id number] [place] [id number] February, [facility] [place] [address] [facility] [address] [id number] [place] [id number] Jan, [facility] [place] [address] [facility] [id number] [place] [id number] Jan, [facility] [place] [address] [facility] [address] [id number] [place] [id number] Jan, Other ulcerative colitis without complication K51.80 ; Irritable bowel syndrome with constipation K58.1 ; Anxiety F41.9 and Essential hypertension I10 [facility] [place] [address] [facility] [address] [id number] [place] [id number] Dec, [facility] [place] [address] [facility] [address] [id number] [place] [id number] Dec, [facility] [place] [address] [facility] [address] [id number] [place] [id number] Dec, [facility] [place] [address] [facility] [id number] [place] [id number] Nov, [facility] [place] [address] [facility] [address] [id number] [place] [id number] Nov, [facility] [place] [address] [facility] [address] [id number] [place] [address] Nov, [facility] [place] [address] [facility] [address] [id number] [place] [id number] Nov, [facility] [place] [address] [facility] [address] [id number] [place] [id number] Nov, [facility] [place] [address] [facility] [address] [id number] [place] [id number] Nov, [facility] [place] [address] [facility] [address] [id number] [place] [id number] Oct, [facility] [place] [address] [facility] [address] [id number] [place] [address] Oct, Other ulcerative colitis without complication K51.80 ; Irritable bowel syndrome with constipation K58.1 and Pneumonia of left lung due to infectious organism, unspecified part of lung J18.9 [facility] [place] [address] [id number] [place] [id number] Oct, [facility] [place] [address] [facility] [address] [id number] [place] [id number] Oct, [facility] [place] [address] [facility] [address] [id number] [place] [id number] Sep[facility] [address] [facility] [id number] [facility] [place] [address] Aug, Acute bilateral low back pain without sciatica M54.5 [facility] [place] [address] [facility] [id number] [place] [id number] Aug, [facility] [place] [address] [facility] [id number] [place] [id number] Jul, [facility] [place] [address] [facility] [address] [id number] [place] [id number] Jun, [facility] [place] [address] [facility] [address] [id number] [place] [id number] Jun, [facility] [place] [address] [facility] [id number] [place] [id number] Jun, [facility] [place] [address] [facility] [address] [id number] [place] [id number] Jun, [facility] [place] [address] [facility] [id number] [place] [address] May, Major depressive disorder, single episode, unspecified F32.9 ; Other ulcerative colitis without complication K51.80 and Osteoporosis M81.0 [facility] [place] [address] [facility] [address] [id number] [place] [id number] May, [facility] [place] [address] [facility] [id number] [place] [address] Apr, [facility] [place] [address] [facility] [id number] [place] [id number] Mar, [facility] [place] [address] [id number] [place] [id number] February, [facility] [place] [address] [facility] [address] [id number] [place] [id number] Jan, [facility] [place] [address] [facility] [address] [id number] [place] [address] Jan, [facility] [place] [address] [facility] [address] [id number] [place] [address] Jan, Major depressive disorder, single episode, unspecified F32.9 ; Other ulcerative colitis without complication K51.80 ; Pharyngitis, unspecified etiology J02.9 and Essential hypertension with goal blood pressure less than 140\/90 I10 [facility] [place] [address] [facility] [address] [id number] [place] [id number] Jan, [facility] [place] [address] [facility] [id number] [place] [id number] Jan, [facility] [place] [address] [facility] [address] [id number] [place] [id number] Dec, [facility] [place] [address] [facility] [address] [id number] [place] [address] Dec, Constipation K59.00 ; Nausea R11.0 and Encounter for therapeutic drug level monitoring Z51.81 [facility] [place] [address] [facility] [id number] [place] [id number] Nov, [facility] [place] [address] [facility] [id number] [place] [id number] Nov, [facility] [place] [address] [facility] [address] [id number] [place] [id number] Oct, [facility] [place] [address] [facility] [address] [id number] [place] [id number] Sep, [facility] [place] [address] [facility] [address] [id number] [place] [id number] Aug, [facility] [place] [address] [facility] [address] [id number] [place] [address] Aug, [facility] [place] [address] [facility] [id number] [place] [id number] Aug, Chest pain, unspecified chest pain type R07.9 [facility] [place] [address] [facility] [id number] [place] [id number] Jul, [facility] [place] [address] [facility] [id number] [place] [id number] Jul, [facility] [place] [address] [facility] [id number] [place] [id number] Jul, [facility] [place] [address] [facility] [id number] [place] [id number] Jul, Encounter for immunization Z23 [facility] [place] [address] [id number] [place] [id number] Jun, [facility] [place] [address] [facility] [address] [id number] [place] [id number] May, [facility] [place] [address] [facility] [address] [id number] [place], [place] [address] May, [facility] [place] [address] [facility] [address] [id number] [place] [id number] Apr, [facility] [place] [address] [id number] [place] [address]99[address]39[address] Mar, Sacroiliac joint pain 724.6 and Weight gain 783.1 [facility] [place] [address] [facility] [id number] [place] [id number] Mar, [facility] [place] [address] [facility] [address] [id number] [place] [id number] Mar, [facility] [place] [address] [id number] [place] [id number] February, [facility] [address] [facility] [id number] [place] [address] 14 Jan, 2015 [facility] [address] [facility] [id number] [place] [address] Jan, [facility] [place] [address] [facility] [id number] [place] [id number] Dec, [facility] [place] [address] [facility] [address] [id number] [place] [id number] Dec, [facility] [place] [facility] [address] [facility] [id number] [place] [address] Dec, [facility] [address] [facility] [id number] [place] [address] Dec, [facility] [place] [address] [facility] [address] [id number] [place] [id number] Dec, [facility] [address] [facility] [id number] [place] [address] Dec, [facility] [place] [address] [facility] [address] [id number] [place] [id number] Dec, [facility] [address] [facility] [id number] [place] [address] Dec, [facility] [place] [address] [facility] [address] [id number] [place] [id number] Nov, [facility] [place] [facility] [address] [facility] [id number] [place] [address] Nov, [facility] [place] [facility] [address] [facility] [id number] [place] [address] Nov, [facility] [place] [address] [facility] [address] [id number] [place] [id number] Nov, [facility] [place] [address] [facility] [address] [id number] [place] [id number] Nov, [facility] [place] [facility] [address] [facility] [id number] [place] [address] Nov, [facility] [place] [address] [id number] [place] [id number] Oct, [facility] [place] [address] [facility] [address] [id number] [place] [id number] Oct, [facility] [place] [facility] [address] [id number] [place] [address] Oct, [facility] [place] [facility] [address] [id number] [place] [address] Oct, [facility] [place] [address] [facility] [address] [id number] [place] [id number] Sep, [facility] [place] [facility] [address] [id number] [place] [address] Sep, [facility] [place] [address] [facility] [address] [id number] [place] [id number] Sep, [facility] [place] [facility] [address] [facility] [id number] [facility] [place] [address] Sep, [facility] [place] [address] [facility] [address] [id number] [place] [id number] Sep, [facility] [place] [facility] [address] [id number] [place] [address] Sep, [facility] [place] [address] [facility] [address] [id number] [place] [id number] Jul, [facility] [place] [facility] [address] [facility] [id number] [facility] [place] [address] Jul, [facility] [place] [facility] [address] [id number] [facility] [place] [address] Jan, [facility] [place] [facility] [address] [id number] [place] [address] Jan, [facility] [place] [address] [facility] [id number] [place] [id number] Dec, [facility] [place] [facility] [address] [id number] [place] [address] Dec, [facility] [place] [address] [facility] [id number] [place] [id number] Oct, [facility] [address] [facility] [id number] [place] [address] Oct, IMMUNIZATIONS No Known Immunizations SOCIAL HISTORY Never Assessed REASON FOR VISIT Diazepam refill PLAN OF CARE VITAL SIGNS MEDICATIONS Unknown [...]
--- NOTE | 2019-05-21 00:55 | OPERATIVE REPORT ---
DATE OF SERVICE: 05/19/2019 PREOPERATIVE DIAGNOSES: Chronic gastritis, abdominal pain, history of ulcerative colitis, she is having some rectal bleeding. POSTOPERATIVE DIAGNOSES: 1. Gastritis. 2. Esophagitis. 3. Small hiatal hernia. 4. Colon polyps. 5. Diverticula. 6. Internal hemorrhoids. PROCEDURES: 1. EGD with biopsy. 2. Colonoscopy with snare polypectomy. 3. Injection of tattooing ink into the colon. SURGEON: Jean Marie Lopez DO NARRATIVE WRITER: None. ANESTHESIA: IV sedation by [facility]. SPECIMEN: Biopsy from the body of stomach from the antrum and from the GE junction and then multiple polyps, one from the descending colon, one from the cecum and then very large one from the transverse colon. BLOOD LOSS: Scant. FLUIDS: Per anesthesia. POSTOPERATIVE CONDITION: Stable. INDICATION FOR PROCEDURE: The patient is a 49-year-old female with a history of ulcerative colitis and some chronic gastritis. She has been having increasing abdominal pain, some rectal bleeding and thought her ulcerative colitis was acting up. FINDINGS: The patient had some gastritis and esophagitis as well has a small hiatal hernia. She also had diverticula, polyps, one very large in the transverse colon and some internal hemorrhoids. PROCEDURE NOTE: After informed consent was obtained, the patient was brought to the endoscopy suite and placed in the left lateral decubitus position. She was administered IV sedation by the [facility], who then monitored her vitals the entire time, heart rate, blood pressure, pulse ox. She started with the EGD, pushed the scope down the mouth through the esophagus into the stomach and the stomach looked like some flecks of blood, some mild gastritis, took a picture of this, pushed into the duodenum and duodenum looked fine. Pulled the scope back into the stomach and did a biopsy of the antrum then pulled back a little bit further. Did a biopsy the body of stomach, retroflexed the scope. She had what looked like a very small hiatal hernia, took a picture of this and then pulled the scope into the GE junction, had some changes here, so I elected to do a biopsy at the GE junction and then pulled the scope up the esophagus and out the mouth. Switched gloves, switched scopes and went down below started the colonoscopy. Pushed the scope in and noted some diverticula on the way in and then noted a polyp in the descending colon, did a snare polypectomy of this, continued on and the transverse colon, saw a very large polyp, but I elected to go all the way to the cecum, took a picture of appendiceal orifice, noted the ileocecal valve and then slowly withdrew the scope insufflating in the cecum actually saw another polyp, took this one out as well and then pulled the scope up the ascending colon to the hepatic flexure then into the transverse colon and the transverse colon again encountered a very large polyp, able to get the snare around it and take it with hot snare and then had to use a Peña Net to grasp it and pulled it out. Once we had removed mass completely, went back in with scope to the point where we had taken this out and then injected with Vicki ink around this area in case we had to go back and then removed the scope slowly insufflating from the transverse colon to the splenic flexure then down the descending colon and into the sigmoid again throughout here saw large diverticula. Pulled the scope into the rectum, retroflexed in the rectal vault and saw some internal hemorrhoids, took a picture of this and then removed the scope. The patient tolerated the procedure. She was recovered in the endoscopy suite. Job ID: [id number] DocumentID: [id number] Dictated Date: 05/20/2019 17:48:08 Taffy Puller Date: 05/21/2019 00:54:53 Dictated By: DO TERESO SYED
== END 2019-05-19 10:20 | disposition home or self-care (01) ==
LOC: ENDO 06:34
PROVIDERS: ATTEND Surgery
DX: C18.4 Malignant neoplasm of transverse colon (principal); D12.0 Benign neoplasm of cecum; K63.5 Polyp of colon; K29.50 Unspecified chronic gastritis without bleeding; K20.9 Esophagitis, unspecified; K44.9 Diaphragmatic hernia without obstruction or gangrene; K57.30 Diverticulosis of large intestine without perforation or abscess without bleeding; K64.8 Other hemorrhoids; K51.90 Ulcerative colitis, unspecified, without complications; Z79.82 Long term (current) use of aspirin; Z86.73 Personal history of transient ischemic attack (TIA), and cerebral infarction without residual deficits; Z79.899 Other long term (current) drug therapy; Z88.6 Allergy status to analgesic agent; Z90.710 Acquired absence of both cervix and uterus; Z90.49 Acquired absence of other specified parts of digestive tract; Z87.891 Personal history of nicotine dependence
CPT/HCPCS: 88305

== ENCOUNTER 2019-06-04 12:43 | Outpatient (CLI) | payer OTHER ==
[~2019-06-04] VITALS: Ht 170.2 cm; Wt 71.4 kg
[2019-06-04] MEDS ORDERED: IPRA4AER IH (12:59)
[2019-06-04] MEDS ORDERED: GABA-490 PO (12:59)
[2019-06-04] MEDS ORDERED: AMLO2.5T4 PO (12:59)
[2019-06-04] MEDS ORDERED: POLY17PO6 PO (12:59)
[2019-06-04] MEDS ORDERED: ASPI-999 PO (12:59)
[2019-06-04 13:06] VITALS: BP 135/93
[2019-06-04 13:57] LABS: BASOPHILS % (AUTO) 1 % (0-10); EOSINOPHILS # (AUTO) 0.1 10^3/uL (0.0-0.3); EOSINOPHILS % (AUTO) 2 % (0-10); HEMATOCRIT 42 % (35-52); HEMOGLOBIN 14.4 G/DL (11.5-16.0); LYMPHOCYTES # (AUTO) 2.1 X 10^3 (1.0-4.0); LYMPHOCYTES % (AUTO) 34 % (12-44); MEAN CORPUSCULAR HEMOGLOBIN 29 PG (25-34); MEAN CORPUSCULAR HGB CONC 34 G/DL (32-36); MEAN CORPUSCULAR VOLUME 84 FL (80-99); MEAN PLATELET VOLUME 9.6 FL (7.4-10.4); MONOCYTES # (AUTO) 0.4 X 10^3 (0.0-1.0); MONOCYTES % (AUTO) 7 % (0-12); NEUTROPHILS # (AUTO) 3.5 X 10^3 (1.8-7.8); NEUTROPHILS % (AUTO) 56 % (42-75); PLATELET COUNT 319 10^3/uL (130-400); RED CELL DISTRIBUTION WIDTH 12.9 % (10.0-14.5); WHITE BLOOD COUNT 6.2 10^3/uL (4.3-11.0)
[2019-06-04] MEDS ORDERED: CYCL10TA9 PO (14:49)
== END 2019-06-04 15:00 | disposition home or self-care (01) ==
LOC: PREOP 12:43
PROVIDERS: ATTEND Surgery
DX: Z01.812 Encounter for preprocedural laboratory examination (principal); C18.9 Malignant neoplasm of colon, unspecified
CPT/HCPCS: 36415; 85025; 86850; 86900; 86901; 87081

== ENCOUNTER 2019-06-11 10:06 | Inpatient (IN) | payer OTHER ==
--- NOTE | 2019-06-04 14:51 | NUR ---
CALLED [facility] L[facility] RECENTLY FILLED MEDICATIONS. I THEN CALLED AND WENT OVER THOSE LISTS WITH THE PATIENT VERBALLY OVER THE PHONE. [facility] FILLED: 05-31-19 LEXAPRO 20MG DAILY (NO LONGER TAKING, FILLED BY MISTAKE) 05-26-19 PROMETHAZINE 04-28-19 NORVASC 2.5MG DAILY #30 03-14-19 METOPROLOL TARTRATE 50MG 1/5 TABS BID #90 (STATES SHE GETS FROM REPOSITORY) 03-10-19 FLEXERIL 10MG BID #30 [facility] FILLED: 05-31-19 GABAPENTIN 400MG BID 05-29-19 DIAZEPAM 2MG 2 TABS BID #112 05-02-19 PROVENTIL 2 PUFFS Q6H PRN 04-15-19 FLEXERIL 10MG BID #30 (STATES SHE TAKES HS SCHEDULED AND DAILY PRN) SHE TAKES ASPIRIN 81MG AND MIRALAX DAILY OTC.
[2019-06-11] VITALS (12 sets, daily range): BP systolic 110–169; BP diastolic 75–111
[~2019-06-11] VITALS: Ht 170.2 cm; Wt 71.4 kg
[~2019-06-11 10:06] MED LIST changes: +AMLO2.5T4 PO; +ASPI-999 PO; +GABA-490 PO; +IPRA4AER IH; +POLY17PO6 PO
[2019-06-11] MEDS ORDERED: ceFAZolin 2 GM/50 ML NS 50 ML IV ONE (10:15)
[2019-06-11] MEDS: LACTATED RINGERS 1,000 ML IV PRN ×3 (10:30→14:10)
[2019-06-11] MEDS ORDERED: BUP/EPI 0.5% 1:200,000 (MARCAINE) 10ML VIAL IJ ONE (10:42)
[2019-06-11] MEDS ORDERED: MIDAZOLAM 2 MG/2 ML (VERSED) VIAL ONE ×2 (11:55→11:56)
[2019-06-11] MEDS ORDERED: LACTATED RINGERS 1,000 ML IV ONE (11:55)
[2019-06-11] MEDS ORDERED: LIDOCAINE PF 2% 5 ML (XYLOCAINE) VIAL ONE (11:55)
[2019-06-11] MEDS ORDERED: proPOfol 200 MG/20 ML (DIPRIVAN) VIAL IV ONE (11:55)
[2019-06-11] MEDS ORDERED: ONDANSETRON 4 MG/2 ML (SDV) Z0FRAN ONE (11:55)
[2019-06-11] MEDS ORDERED: ROCURONIUM 10 MG/ML 5 ML SYRINGE IV ONE ×2 (11:55→13:21)
[2019-06-11] MEDS ORDERED: SEVOFLURANE (ULTANE) 15 ML INHAL SOLN ONE ×7 (11:56→14:05)
[2019-06-11] MEDS ORDERED: fentaNYL INJECTION 250 MCG/5 ML AMP ONE (11:56)
[2019-06-11] MEDS ORDERED: MIDAZOLAM 2 MG/2 ML (VERSED) VIAL IVP ONE (12:15)
[2019-06-11] MEDS ORDERED: GLYCOPYRROLATE 0.2 MG/ML (ROBINUL) 2 ML VIAL ONE (13:49)
[2019-06-11] MEDS ORDERED: NEOSTIGMINE 3 MG/3 ML VIAL ONE (13:49)
[2019-06-11] MEDS ORDERED: BUPIVACAINE 0.5% 30 ML (SENSORCAINE) VIAL ONE (13:51)
--- NOTE | 2019-06-11 14:02 | Progress Note-Pre Operative ---
Pre-Operative Progress Note H&P Reviewed The H&P was reviewed, patient examined and no changes noted. Time Seen by Provider: 12:12 Date H&P Reviewed: Jun 11, 2019 Time H&P Reviewed: 12:13 Pre-Operative Diagnosis: Transverse Colon Cancer CHEKO YOUNG DO Jun 11, 2019 14:02
--- NOTE | 2019-06-11 14:03 | Progress Note-Post Operative ---
Post-Operative Progess Note Surgeon (s)/Assistant Professor Of Sociology (s) Surgeon CHEKO YOUNG DO Assistant Professor Of Sociology: Wilber Pre-Operative Diagnosis Transverse Colon Cancer Post-Operative Diagnosis Same pending pathology Procedure & Operative Findings Date of Procedure 06/11/19 Procedure Performed/Findings Partial colon resection Partial omentectomy Anesthesia Type GET Estimated Blood Loss Estimated blood loss (mL): less than 50ml Specimens/Packing Specimens Removed portion of transverse colon portion of omentum CHEKO YOUNG DO Jun 11, 2019 14:03
[2019-06-11] MEDS ORDERED: ENOXAPARIN 30 MG/0.3 ML (LOVENOX) SYR SC SCH (14:15)
[2019-06-11] MEDS ORDERED: morphine INJ 10 MG/ML 1ML (SYR OR VIAL) ONE (14:27)
[2019-06-11] MEDS ORDERED: ONDANSETRON 4 MG/2 ML (SDV) Z0FRAN IVP PRN (14:30)
[2019-06-11] MEDS ORDERED: morphine INJ 10 MG/ML 1ML (SYR OR VIAL) IVP ONE (14:30)
[2019-06-11] MEDS ORDERED: MEPERIDINE (DEMEROL) INJ 50 MG/ML IVP ONE (14:30)
[2019-06-11] MEDS ORDERED: PROMETHAZINE INJ 25 MG/ML (PHENERGAN) AMP IVP ONE (14:30)
[2019-06-11] MEDS ORDERED: HYDROmorphone 2 MG/ML VIAL (DILAUDID) ONE (14:42)
[2019-06-11] MEDS: HYDROmorphone 2 MG/ML VIAL (DILAUDID) IV ONE (14:50)
[2019-06-11] MEDS ORDERED: KETOROLAC 30 MG/ML VIAL ONE (15:09)
[2019-06-11] MEDS: KETOROLAC 30 MG/ML VIAL IVP SCH ×2 (15:18→21:11)
[2019-06-11] MEDS: ONDANSETRON 4 MG/2 ML (SDV) Z0FRAN IVP PRN ×2 (17:00→21:11)
[2019-06-11] MEDS: LACTATED RINGERS 1,000 ML IV SCH ×2 (17:00→22:04)
[2019-06-11] MEDS: ACETAMINOPHEN 500 MG TAB (TYLENOL) PO SCH (17:04)
[2019-06-11] MEDS ORDERED: morphine INJ 10 MG/ML 1ML (SYR OR VIAL) IVP STA (17:04)
[2019-06-11] MEDS ORDERED: morphine INJ 4 MG/ML 1 ML (VIAL/SYRINGE) ONE (17:30)
[2019-06-11] MEDS: metroNIDAZOLE 500MG/100ML IVPB 100 ML IV SCH (17:38)
[2019-06-11] MEDS: ENOXAPARIN 40 MG/0.4 ML (LOVENOX) SYR SC SCH (18:29)
[2019-06-11] MEDS: ceFAZolin 2 GM IV Premixed 50 ML IV SCH (21:11)
[2019-06-11] MEDS: morphine INJ 4 MG/ML 1 ML (VIAL/SYRINGE) IVP PRN (21:12)
--- NOTE | 2019-06-12 00:42 | OPERATIVE REPORT ---
DATE OF SERVICE: 06/11/2019 PREOPERATIVE DIAGNOSIS: Transverse colon cancer. POSTOPERATIVE DIAGNOSES: Transverse colon cancer, pending pathology. PROCEDURE: 1. Partial colon resection. 2. Partial omentectomy. SURGEON: Jean Marie Lopez D.O. RUBY ON RAILS DEVELOPER: Shlomo Merino DO. ANESTHESIA: General endotracheal tube. SPECIMEN: 1. Portion of transverse colon. 2. Portion of omentum. BLOOD LOSS: Less than 50 mL. FLUIDS: Per anesthesia. POSTOPERATIVE CONDITION: Stable. INDICATION FOR PROCEDURE: The patient is a 49-year-old female, who had a colonoscopy performed. Unfortunately found a large polyp that had cancer down through the stalk, needed resection, had this area tattooed. FINDINGS: The patient had a portion of the transverse colon removed. Had removed a large portion of omentum as well and able to get this out. PROCEDURE NOTE: After informed consent was obtained, the patient was brought to the operating room, placed on the operating table in supine position. She was sterilely prepped and draped in normal fashion. I made a midline incision just above the umbilicus approximately 5 to 6 cm incision, carried down through the skin into the subcutaneous tissue with a #15 blade and deepened down to subcutaneous tissue with Bovie electrocautery down to the fascia. Fascia was then incised with electrocautery and bluntly entered the abdomen, swept a finger around, increased the incision superiorly and inferiorly. Plan was to place a port and do this laparoscopically; however, when we opened could see the tattooing and the transverse colon, so I elected to do this open through the small incision. In attempting to pull the transverse colon up, they were blocked by the omentum so elected to start doing a partial omentectomy, cutting it off the transverse colon and then cutting off a large portion of the omentum and passed this off table. Once we did this, we were then able to bring the transverse colon through. Able to visualize the area of tattooing, went about 4 cm distally and 4 cm to 6 cm proximally and made a defect under the transverse colon with blunt dissection as well as with the Bovie electrocautery through the mesentery and then used a CHRISSY-75 across colon clamped and fired thereby transecting it on either side and then using LigaSure to go down to the root of the mesentery. We marked the distal portion of the suture. Once removed this portion of transverse colon, passed it off the table. Elected to do an end-to-end anastomosis. I used a pursestring applicator on the distal end of the transverse colon. Created a pursestring cut off at the end of the colon and then placed the 28 mm anvil and tied this in place with a pursestring and then in the proximal portion of the transverse colon made a colotomy and placed the 28 mm stapler through here, brought the trocar out through the side and then attached to the anvil and then tightened all the way down to the green, was in the good section and then held for 30 seconds, then fired, held for 20 seconds and then carefully turned the knob full turn counterclockwise, able to remove this, got 2 good donuts and then elected to close the colotomy with 3-0 Vicryl pop-offs, closed this in a transverse closure to make sure we did not compromise the lumen, closure looked good. Over the top of the closure placed an epiploic fat to help protect this area and then dropped this back in. We then copiously irrigated with a liter of warm normal saline, suctioned this out. Everything looked good. No bleeding and at this point then elected to close the midline incision, closed with #1 double stranded PDS suture running from superior portion to inferior portion tying to itself. I then copiously irrigated this incision and closing the skin with huey. Area was cleaned and dried and a dressing placed and patient then transferred to recovery room in stable condition. Sponge, instrument and needle count correct at the end of the case. Dr. Merino assisted in this case helping to open the incision, closed the incision as well as identify anatomy. Job ID: [id number] DocumentID: [id number] Dictated Date: 06/11/2019 16:03:50 Strapper Date: 06/12/2019 00:41:53 Dictated By: DO TERESO SYED
--- NOTE | 2019-06-12 01:12 | NUR ---
PT HAS AMBULATED IN THE HALLWAY 2X TONIGHT. AT THIS TIME PT IS RESTING WITH EYES CLOSED IN THE BEDSIDE RECLINER. IV PATENT VINAYAK HELLER FAMILY AT BEDSIDE
--- NOTE | 2019-06-12 01:15 | NUR ---
PT WAS RESTING AT 2400 FAMILY REFUSED TO LET CHEMICAL LABORATORY SCIENTIST TAKE VITALS SIGNS.. RESP EVEN NONLABORD NO DISTRESS NOTED
[2019-06-12] MEDS: metroNIDAZOLE 500MG/100ML IVPB 100 ML IV SCH (01:29)
[2019-06-12] MEDS: ONDANSETRON 4 MG/2 ML (SDV) Z0FRAN IVP PRN ×2 (01:29→20:41)
[2019-06-12] MEDS: KETOROLAC 30 MG/ML VIAL IVP SCH ×4 (01:30→19:59)
[2019-06-12] MEDS: LACTATED RINGERS 1,000 ML IV SCH ×3 (02:00→22:37)
[2019-06-12] MEDS ORDERED: CYCLOBENZAPRINE 10 MG (FLEXERIL) TAB PO PRN ×2 (04:15→10:30)
[2019-06-12] MEDS ORDERED: MAG CARB/AL HYDROX EXTRA STRENGTH TAB (GAVISCON ES) PO PRN (04:30)
[2019-06-12 04:45] VITALS: BP 100/57
[2019-06-12] MEDS: ceFAZolin 2 GM IV Premixed 50 ML IV SCH (05:03)
--- NOTE | 2019-06-12 06:57 | NUR ---
lee cath dcd without difficulty. pt has ambulated in the hallway x3 during the night. has ravi po fluids without nausea.
[2019-06-12] MEDS: ACETAMINOPHEN 500 MG TAB (TYLENOL) PO SCH ×3 (07:37→15:46)
[2019-06-12] MEDS ORDERED: PATIENT MAY USE OWN MEDS, ALL MC SCH (07:45)
[2019-06-12 08:03] VITALS: BP 110/75
[2019-06-12] MEDS ORDERED: PATIENT MAY USE OWN MED,SINGLE MED PO SCH ×4 (08:30)
[2019-06-12] MEDS ORDERED: DIAZEPAM 2 MG (VALIUM) TAB PO SCH (09:00)
[2019-06-12] MEDS ORDERED: GABAPENTIN 400 MG (NEURONTIN) CAP PO SCH (09:00)
[2019-06-12] MEDS: meTOprolol TARTRATE 50 MG (LOPRESSOR) TAB PO SCH ×2 (09:46→20:40)
[2019-06-12] MEDS: morphine INJ 4 MG/ML 1 ML (VIAL/SYRINGE) IVP PRN ×2 (09:46→16:10)
[2019-06-12] MEDS: PANTOPRAZOLE 40 MG (PROTONIX) VIAL IVP SCH (09:46)
--- NOTE | 2019-06-12 10:24 | NUR ---
Pt has no income other then 's disability check She would like to make application for social security disability and Medicaid. [employer] and they plan to complete application while pt is hospitalized. Will follow and assist.
[2019-06-12 11:37] VITALS: BP 99/67
--- NOTE | 2019-06-12 12:28 | Anesthesia-General Post-Op ---
General Patient Condition Mental Status/LOC: Same as Preop Cardiovascular: Satisfactory Nausea/Vomiting: Absent Respiratory: Satisfactory Pain: Controlled Complications: Absent Post Op Complications Complications None Follow Up Care/Instructions Patient Instructions None needed. Anesthesia/Patient Condition Patient Condition Patient is doing well, no complaints, stable vital signs, no apparent adverse anesthesia problems. No complications reported per nursing. MICHAEL GARY CRNA Jun 12, 2019 12:28
[2019-06-12] MEDS: oxyCODONE/APAP 5/325MG (PERCOCET 5) TABLET PO PRN ×2 (12:38→19:59)
--- NOTE | 2019-06-12 14:33 | NUR ---
Initial visit with the pt and her , Kamran. The pt was on the phone with her daughter, but intermittently joined my conversation with her . Both demonstrated a welcoming spirit and shared that they had the pt's sister "kicked out" after she visited yesterday and was highly negative. They felt disrespected and overwhelmed and told her to leave. I offered them a safe place to share their thoughts and feelings. They thanked me for visiting.
[2019-06-12 16:30] VITALS: BP 103/70
[2019-06-12] MEDS: ENOXAPARIN 40 MG/0.4 ML (LOVENOX) SYR SC SCH (17:51)
--- NOTE | 2019-06-12 18:03 | Progress Note - Surgery ---
Subjective Time Seen by a Provider: 10:04 Subjective/Events-last exam Pt seen and examined, states she already had BM and is tolerating full liquids. She wants to eat more. Pt also stating her pain meds are not working. Review of Systems General: No Chills, No Night Sweats Pulmonary: No Dyspnea Cardiovascular: No: Chest Pain Gastrointestinal: No: Nausea, Vomiting Objective Exam Vital Signs Date Time Temp Pulse Resp B/P (MAP) Pulse Ox O2 Delivery O2 Flow Rate FiO2 06/12/19 16:30 98.0 83 18 103/70 (81) 99 Room Air 06/12/19 11:37 98.7 89 18 99/67 (78) 97 Room Air 06/12/19 09:14 Room Air 06/12/19 08:03 97.6 93 20 110/75 (87) 98 Room Air 06/12/19 04:45 96.7 107 18 100/57 (71) 98 Room Air 06/11/19 20:45 97.2 88 18 110/75 (87) 97 Room Air 06/11/19 20:00 97 Room Air 2.00 06/11/19 18:01 96 Nasal Cannula 3.00 I & O 06/12/19 07:00 Intake Total 2050 ml Output Total 200 ml Balance 1850 ml Capillary Refill : Less Than 3 Seconds General Appearance: WD/WN, Mild Distress Respiratory: Chest Non Tender, Lungs Clear, Normal Breath Sounds Cardiovascular: Regular Rate, Rhythm Gastrointestinal: soft; No distended; tenderness (mild at incision) Assessment/Plan Assessment/Plan Assessment/Plan S/P Partial colon resection Pain control, increase diet, encouraged ambulation and IS use. Will start Oxycodone and stop morphine. Clinical Quality Measures DVT/VTE Risk/Contraindication: Risk Factor Score Per Nursin RFS Level Per Nursing on Admit: 2=Moderate CHEKO YOUNG DO Jun 12, 2019 18:03
[2019-06-12] MEDS: GABAPENTIN 400 MG (NEURONTIN) CAP PO SCH (20:40)
[2019-06-12 20:50] VITALS: BP 108/75
[2019-06-12] MEDS ORDERED: CYCLOBENZAPRINE 10 MG (FLEXERIL) TAB PO SCH (21:00)
[2019-06-12] MEDS: DIAZEPAM 2 MG (VALIUM) TAB PO SCH (21:17)
[2019-06-13] VITALS: BP 109/74
[2019-06-13] MEDS: ACETAMINOPHEN 500 MG TAB (TYLENOL) PO SCH ×2 (00:34→09:14)
[2019-06-13] MEDS: KETOROLAC 30 MG/ML VIAL IVP SCH ×2 (01:40→09:14)
[2019-06-13] MEDS: ONDANSETRON 4 MG/2 ML (SDV) Z0FRAN IVP PRN (01:40)
[2019-06-13] MEDS: oxyCODONE/APAP 5/325MG (PERCOCET 5) TABLET PO PRN ×2 (01:40→11:43)
[2019-06-13 04:00] VITALS: BP 142/90
[2019-06-13] MEDS: meTOprolol TARTRATE 50 MG (LOPRESSOR) TAB PO SCH (05:10)
[2019-06-13] MEDS: morphine INJ 4 MG/ML 1 ML (VIAL/SYRINGE) IVP PRN (05:24)
[2019-06-13] MEDS: LACTATED RINGERS 1,000 ML IV SCH (06:10)
[2019-06-13 08:00] VITALS: BP 119/69
[2019-06-13] MEDS: PANTOPRAZOLE 40 MG (PROTONIX) VIAL IVP SCH (09:14)
[2019-06-13] MEDS: GABAPENTIN 400 MG (NEURONTIN) CAP PO SCH (09:14)
[2019-06-13] MEDS: DIAZEPAM 2 MG (VALIUM) TAB PO SCH (09:16)
--- NOTE | 2019-06-13 10:21 | Progress Note - Surgery ---
Subjective Time Seen by a Provider: 09:38 Subjective/Events-last exam Pt seen and examined, tolerating diet with normal BM's; has pain but wants to go home. Review of Systems Pulmonary: No Dyspnea, No Cough Gastrointestinal: No: Nausea, Vomiting Objective Exam Vital Signs Date Time Temp Pulse Resp B/P (MAP) Pulse Ox O2 Delivery O2 Flow Rate FiO2 06/13/19 09:14 97.1 06/13/19 04:00 97.1 75 12 142/90 (107) 98 Room Air 06/13/19 00:00 97.1 71 18 109/74 (86) 99 Room Air 06/12/19 21:00 Room Air 06/12/19 20:50 97.0 85 18 108/75 (86) 98 Room Air 06/12/19 16:30 98.0 83 18 103/70 (81) 99 Room Air 06/12/19 11:37 98.7 89 18 99/67 (78) 97 Room Air I & O 06/13/19 07:00 Intake Total 3254 ml Output Total 700 ml Balance 2554 ml Capillary Refill : Less Than 3 Seconds General Appearance: No Apparent Distress, WD/WN Respiratory: Lungs Clear, Normal Breath Sounds Cardiovascular: Regular Rate, Rhythm Gastrointestinal: soft; No distended; tenderness (mild at incision), other (Incision c/d/i) Assessment/Plan Assessment/Plan Assessment/Plan S/P Partial colon resection D/C IV, D/C home Clinical Quality Measures DVT/VTE Risk/Contraindication: Risk Factor Score Per Nursin RFS Level Per Nursing on Admit: 2=Moderate CHEKO YOUNG DO Jun 13, 2019 10:21
[2019-06-13] MEDS ORDERED: OXYC1TAB87 PO (10:22)
--- NOTE | 2019-06-13 10:23 | Discharge Inst-Surgical ---
Discharge Inst-Surgical Depart Medication/Instructions New, Converted or Re-Newed RX: RX Given to Pt/Family Patient Instructions Follow up Appt: Make appointment for 1 week. [phone] Instructions: No lifting greater than 20 pounds. No strenuous activity. May shower in 24 hours, no tub bath or soaking. Use incentive spirometer at home as directed. No Smoking Skin/Wound Care: May remove bandages in am. You need to leave the Dermabond on incision it will fall off on it's own. Symptoms to Report: Appetite Changes, Extremity Discoloration, Numbness/Tingling, Swelling Increased, Bleeding Excessive, Eyesight Changes, Pain Increased, Urine Color Change, Constipation(Persistent), Fever over 101 degree F, Pain/Pressure in chest, Urinating Difficulty, Cough Up/Vomit Blood, Heart Beat Irreg/Pounding, Pain/Pressure in jaw, Cramps in feet or legs, Lightheadedness, Pain/Pressure in shoulder, Diarrhea(Persistent), Memory Changes Suddenly, Questions/Concerns, Weight gain consecutive days, Dizziness/Fainting, Nausea/Vomiting, Shortness of Breath, Weight gain over 2 pounds If questions or concerns contact your physician Or seek help at emergency department. Activity Activity as Tolerated: Yes Driving Instructions: No Driving/Refer to Dr. Obregon Discharge Diet: No Restrictions Diet After 24 Hours: Clear Liquid if Nauseous If Any Problems/Questions/Issu: Contact Your Physician, Go to Emergency Room Skin/Wound Care Infection Signs and Symptoms: Increased Redness, Foul Odor of Wound, Increased Drainage, Skin Itchy or Has a Rash, Increased Swelling, Temperature Above 101 F Bathing Instructions: Shower Stitches/Pearson/Dermabond Dis: Care of CHEKO Floyd DO Jun 13, 2019 10:23
[2019-06-13 11:55] VITALS: BP 119/69
--- NOTE | 2019-06-13 15:24 | NUR ---
Pt discharged home and primary caregiver will be pt's Karman. Both pleased to be discharged home and will be returning to see Dr. Lopez in follow-up. Pt stated she had no post discharge needs.
--- NOTE | 2019-06-16 16:20 | Physician Query-Final Dx ---
CIERRA ABDALLA 06/16/19 1620: Final Diagnosis Give Final Diagnosis Please give Final Diagnosis CHEKO YOUNG DO 06/17/192035: Final Diagnosis Give Final Diagnosis Transverse Colon Cancer CIERRA ABDALLA Jun 16, 2019 16:20 CHEKO YOUNG DO Jun 17, 2019 20:36
== END 2019-06-13 11:55 | disposition home or self-care (01) | DRG 345 ==
LOC: 4TH 10:06 → SURG 10:07 → 4TH 15:50
PROVIDERS: ADMIT Surgery; ATTEND Surgery
PROC: 0DBU0ZZ Excision of Omentum, Open Approach (ICD-10-PCS; 2019-06-11)
PROC: 0DBL0ZX Excision of Transverse Colon, Open Approach, Diagnostic (ICD-10-PCS; principal; 2019-06-11 12:56)
DX: C18.4 Malignant neoplasm of transverse colon (principal); D12.0 Benign neoplasm of cecum; K29.50 Unspecified chronic gastritis without bleeding; K64.0 First degree hemorrhoids; K51.90 Ulcerative colitis, unspecified, without complications; I69.354 Hemiplegia and hemiparesis following cerebral infarction affecting left non-dominant side; I10 Essential (primary) hypertension; J45.909 Unspecified asthma, uncomplicated; G62.9 Polyneuropathy, unspecified; K21.9 Gastro-esophageal reflux disease without esophagitis; K44.9 Diaphragmatic hernia without obstruction or gangrene; F41.9 Anxiety disorder, unspecified; Z87.891 Personal history of nicotine dependence; Z87.19 Personal history of other diseases of the digestive system
CPT/HCPCS: 36415; 86850; 86900; 86901; 94664

== ENCOUNTER 2021-01-24 05:37 | Outpatient (CLI) | payer OTHER ==
[~2021-01-24] VITALS: Ht 167.6 cm; Wt 68.5 kg
[~2021-01-24 05:37] MED LIST changes: +OXYC1TAB87 PO
[2021-01-24] MEDS ORDERED: PANT40GR PO (16:01)
== END 2021-01-24 16:15 | disposition home or self-care (01) ==
LOC: PREOP 05:37
PROVIDERS: ATTEND Surgery
DX: Z01.818 Encounter for other preprocedural examination (principal)

== ENCOUNTER 2021-01-31 10:25 | Day surgery (SDC) | payer OTHER ==
[~2021-01-31] VITALS: Ht 167.6 cm; Wt 68.5 kg
[~2021-01-31 10:25] MED LIST changes: +PANT40GR PO
[2021-01-31 10:30] VITALS: BP 125/95
[2021-01-31] MEDS ORDERED: LACTATED RINGERS 1,000 ML IV ONE (10:31)
[2021-01-31] MEDS ORDERED: LACTATED RINGERS 1,000 ML IV STA (10:33)
[2021-01-31] MEDS ORDERED: HURRICAINE EXT TUBE (BENZOCAINE) XX PRN (10:45)
--- NOTE | 2021-01-31 10:47 | Progress Note-Pre Operative ---
Pre-Operative Progress Note H&P Reviewed The H&P was reviewed, patient examined and no changes noted. Time Seen by Provider: 10:46 Date H&P Reviewed: Jan 31, 2021 Time H&P Reviewed: 10:46 Pre-Operative Diagnosis: Hx of Colon CA, Gastritis CHEKO YOUNG DO Jan 31, 2021 10:47
[2021-01-31] MEDS ORDERED: HURRICAINE EXT TUBE (BENZOCAINE) ONE (11:24)
[2021-01-31] MEDS ORDERED: PROPOFOL INJECTION 50 ML IV ONE (11:24)
[2021-01-31] MEDS ORDERED: MIDAZOLAM 2 MG/2 ML (VERSED) VIAL ONE (11:24)
[2021-01-31] MEDS ORDERED: proPOfol 200 MG/20 ML (DIPRIVAN) VIAL IV ONE (12:12)
[2021-01-31 12:30] VITALS: BP 116/81
[2021-01-31 12:35] VITALS: BP 143/92
[2021-01-31 12:40] VITALS: BP 153/92
--- NOTE | 2021-01-31 12:49 | Progress Note-Post Operative ---
Post-Operative Progess Note Surgeon (s)/Library Services Dean (s) Surgeon CHEKO YOUNG DO Library Services Dean: GEN BanegasII Pre-Operative Diagnosis Hx of Colon CA, Gastritis Post-Operative Diagnosis Gastritis Hiatal Hernia Polyps Int hemorrhoids Procedure & Operative Findings Date of Procedure 01/31/21 Procedure Performed/Findings EGD with bx Colon wiht hot bx Anesthesia Type IV sedation by BURLAP MAN Estimated Blood Loss Estimated blood loss (mL): scant Specimens/Packing Specimens Removed antral bx GE jxn bx Desc colon bx Transverse colon bx CHEKO YOUNG DO Jan 31, 2021 12:49
--- NOTE | 2021-01-31 12:49 | Endoscopy Discharge Instruct ---
Endo Procedure/Findings Findings 1.: Gastritis 2.: Hiatal Hernia 3.: Polyp 4.: Internal Hemorrhoids Discharge Instructions - Activity: You might feel a little sleepy until tomorrow. This is due to the medicine you received to relax you. Until tomorrow, you should: NOT drive a car, operate machinery or power tools. NOT drink any alcoholic beverages. NOT make any important decisions or sign importortant papers. Do not return to work until tomorrow, unless otherwise instructed. Resume previous activities tomorrow. Diet: Start by taking liquids. If you tolerate liquids, advance to solid food. 1.: Colonoscopy in 1 year 2.: EGD in 3 years Notify Physician - If you experience excessive bleeding, unusual abdominal pain, fever, or chest pain, contact your doctor immediately. CHEKO YOUNG DO Jan 31, 2021 12:49
--- NOTE | 2021-01-31 12:56 | Anesthesia-General Post-Op ---
MAC Patient Condition Mental Status/LOC: Same as Preop Cardiovascular: Satisfactory Nausea/Vomiting: Absent Respiratory: Satisfactory Pain: Controlled Complications: Absent Post Op Complications Complications None Follow Up Care/Instructions Patient Instructions None needed. Anesthesiology Discharge Order Discharge Order Patient is doing well, no complaints, stable vital signs, no apparent adverse anesthesia problems. No complications reported per nursing. DOROTHEA ENGEL CRNA Jan 31, 2021 12:56
[2021-01-31 13:20] VITALS: BP 140/99
[2021-01-31 13:40] VITALS: BP 140/99
--- NOTE | 2021-01-31 21:29 | OPERATIVE REPORT ---
DATE OF SERVICE: 01/31/2021 PREOPERATIVE DIAGNOSES: History of colon cancer and gastritis. POSTOPERATIVE DIAGNOSES: 1. Gastritis, hiatal hernia. 2. Colon polyps. 3. Internal hemorrhoids. PROCEDURE: 1. EGD with biopsy. 2. Colonoscopy with hot biopsy. SURGEON: Jean Marie Lopez, DO FLY RAIL OPERATOR: Reji Savage, MS3 ANESTHESIA: IV sedation by the PAYMENT ANALYST. SPECIMEN: Biopsy from the antrum, biopsy of GE junction as well as a biopsy of descending colon polyp and transverse colon polyp. BLOOD LOSS: Scant. FLUIDS: Per anesthesia. POSTOPERATIVE CONDITION: Stable. INDICATION FOR PROCEDURE: The patient is a 50-year-old female who has had a history of previous transverse colon cancer and needs a screening colonoscopy as well as she has had some gastritis, needed EGD. FINDINGS: The patient had some gastritis and hiatal hernia about 1 cm hiatal hernia and found 2 polyps in the colon as well as some internal hemorrhoids. PROCEDURE NOTE: After informed consent was obtained, the patient was brought to the endoscopy suite, placed in bed in left lateral decubitus position. She was administered IV sedation by the PAYMENT ANALYST who then monitored her vitals the entire time, heart rate, blood pressure and pulse ox. We started with the EGD, placing scope down the mouth through the esophagus into the stomach, noted some mild gastritis in the antrum, took a picture, pushed into the duodenum. Duodenum looked fine. Pulled back and did a biopsy of the antrum. Retroflexed the scope, saw hiatal hernia about 1 cm opening and then pulled the scope into the GE junction, did a biopsy here and then suctioned all the air out of stomach, pulled the scope up the esophagus and out the mouth. Switched camera, switched gloves, went down below, started the colonoscopy. Pushed all the way into about 140 cm, able to get all the way to cecum, took a picture of appendiceal orifice and on the way in, noted a polyp in the appendiceal orifice and then slowly withdrew the scope insufflating the circumferential miller looking at the cecum up the ascending colon to the hepatic flexure and then in the transverse colon, could see the anastomosis, took a picture of this and continued just past this and saw small polyp, did a hot biopsy of this, continued to the splenic flexure, then down in the descending colon and descending colon saw another flat polyp, did another hot biopsy of this and then continued down into the sigmoid and finally into the rectum, retroflexed in the rectal vault, saw some minimal internal hemorrhoids, took a picture of this and then removed the scope. The patient tolerated the procedure. She was recovered in endoscopy suite. Job ID: [id number] DocumentID: [id number] Dictated Date: 01/31/2021 15:25:42 Comp Field Case Manager Date: 01/31/2021 21:28:05 Dictated By: JEAN MARIE LOPEZ DO
== END 2021-01-31 13:40 | disposition home or self-care (01) ==
LOC: ENDO 10:25
PROVIDERS: ATTEND Surgery
DX: Z12.11 Encounter for screening for malignant neoplasm of colon (principal); D12.3 Benign neoplasm of transverse colon; K63.5 Polyp of colon; K64.8 Other hemorrhoids; K44.9 Diaphragmatic hernia without obstruction or gangrene; K29.70 Gastritis, unspecified, without bleeding; I10 Essential (primary) hypertension; J45.909 Unspecified asthma, uncomplicated; K21.00 Gastro-esophageal reflux disease with esophagitis, without bleeding; Z79.899 Other long term (current) drug therapy; Z91.030 Bee allergy status; Z88.5 Allergy status to narcotic agent; Z88.7 Allergy status to serum and vaccine; Z86.73 Personal history of transient ischemic attack (TIA), and cerebral infarction without residual deficits; Z85.038 Personal history of other malignant neoplasm of large intestine; Z90.710 Acquired absence of both cervix and uterus; Z90.711 Acquired absence of uterus with remaining cervical stump; Z80.0 Family history of malignant neoplasm of digestive organs

== ENCOUNTER 2021-12-14 09:27 | Outpatient (CLI) | payer OTHER ==
[~2021-12-14] VITALS: Ht 170.2 cm; Wt 65.0 kg
[~2021-12-14 09:27] MED LIST changes: +CYCL10TA25 PO; -CYCL10TA9 PO
== END 2021-12-14 14:06 | disposition home or self-care (01) ==
LOC: PREOP 09:27
PROVIDERS: ATTEND Surgery
DX: Z01.818 Encounter for other preprocedural examination (principal)

== ENCOUNTER 2021-12-19 09:11 | Day surgery (SDC) | payer OTHER ==
[~2021-12-19] VITALS: Ht 170 cm; Wt 65.0 kg
[2021-12-19] MEDS ORDERED: LACTATED RINGERS 1,000 ML IV STA (09:12)
[2021-12-19] MEDS ORDERED: HURRICAINE EXT TUBE (BENZOCAINE) XX PRN (09:15)
[2021-12-19 09:30] VITALS: BP 163/103
--- NOTE | 2021-12-19 09:53 | Progress Note-Pre Operative ---
Pre-Operative Progress Note H&P Reviewed The H&P was reviewed, patient examined and no changes noted. Time Seen by Provider: 09:51 Date H&P Reviewed: Dec 19, 2021 Time H&P Reviewed: 09:51 Pre-Operative Diagnosis: Dysphagia, Hx of colon CA CHEKO YOUNG DO Dec 19, 2021 09:53
[2021-12-19] MEDS ORDERED: MIDAZOLAM 2 MG/2 ML (VERSED) VIAL ONE (11:35)
[2021-12-19] MEDS ORDERED: PROPOFOL INJECTION 50 ML IV ONE (11:37)
[2021-12-19 12:05] VITALS: BP 131/78
--- NOTE | 2021-12-19 12:07 | Progress Note-Post Operative ---
Post-Operative Progess Note Surgeon (s)/Sample Collector (s) Surgeon CHEKO YOUNG DO Sample Collector: none Pre-Operative Diagnosis Dysphagia, Hx of colon CA Post-Operative Diagnosis hiatal hernia gastritis ??small stricture at GE jxn polyps int hemorrhoids Procedure & Operative Findings Date of Procedure 12/19/21 Procedure Performed/Findings EGD with bx Colon with cold bx PROCEDURE NOTE: After informed consent was obtained, the patient was brought to the endoscopy suite, placed in bed in left lateral decubitus position. She was administered IV sedation by the ANTENNA INSTALLER who then monitored vitals the entire time, heart rate, blood pressure and pulse ox and the scope was inserted down the mouth through the esophagus into the stomach. On the way down, noted some mild esophagitis and questionable mild stricture of GE junction. Took a picture and pushed into the stomach, pushed past the antrum into the duodenum. Duodenum looked good. Pulled back and did a biopsy of antrum, then retroflexed the scope and saw a small 0.5cm hiatal hernia. Took a picture of this and then pulled the scope into the GE junction, took another picture of the hiatal hernia and then did a biopsy of the GE junction. Pushed the scope back into the stomach, suctioned all the air out of the stomach. At this point pulled the scope up the esophagus and out the mouth. Switched camera, switched gloves, went down below, started the colonoscopy. Pushed all the way into about 110 cm to get all the way to cecum. On the way in found a polyp in the descending colon and did a cold biopsy of it. Once in the cecum took a picture of the appendiceal orifice and noted the ileocecal valve, then slowly withdrew the scope, insufflating to look circumferentially at the miller starting in the cecum up the ascending colon where I found another small polyp and did another cold biopsy. Continued to the hep atic flexure and then found the anastomosis of transverse colon. Down the splenic flexure, into the descending colon, down into the sigmoid and finally into the rectum. Retroflexed in the rectal vault, saw some minimal internal hemorrhoids and took a picture of them. The patient tolerated the procedure and she recovered in the endoscopy suite. Anesthesia Type IV sedation by anesthesia Estimated Blood Loss Estimated blood loss (mL): scant Specimens/Packing Specimens Removed antral bx GE jxn bx Asc and desc colon polyp CHEKO YOUNG DO Dec 19, 2021 12:06
--- NOTE | 2021-12-19 12:07 | Endoscopy Discharge Instruct ---
Endo Procedure/Findings Findings 1.: Gastritis 2.: Hiatal Hernia 3.: Polyp 4.: Internal Hemorrhoids Discharge Instructions - Activity: You might feel a little sleepy until tomorrow. This is due to the medicine you received to relax you. Until tomorrow, you should: NOT drive a car, operate machinery or power tools. NOT drink any alcoholic beverages. NOT make any important decisions or sign importortant papers. Do not return to work until tomorrow, unless otherwise instructed. Resume previous activities tomorrow. Diet: Start by taking liquids. If you tolerate liquids, advance to solid food. 1.: EGD in 1 year 2.: Colonoscopy in 1 year Notify Physician - If you experience excessive bleeding, unusual abdominal pain, fever, or chest pain, contact your doctor immediately. CHEKO YOUNG DO Dec 19, 2021 12:07
--- NOTE | 2021-12-19 12:08 | Anesthesia-General Post-Op ---
MAC Patient Condition Mental Status/LOC: Same as Preop Cardiovascular: Satisfactory Nausea/Vomiting: Absent Respiratory: Satisfactory Pain: Controlled Complications: Absent Post Op Complications Complications None Follow Up Care/Instructions Patient Instructions None needed. Anesthesiology Discharge Order Discharge Order Patient is doing well, no complaints, stable vital signs, no apparent adverse anesthesia problems. BENY LIGHT DO Dec 19, 2021 12:08
[2021-12-19 12:11] VITALS: BP 132/76
[2021-12-19 12:15] VITALS: BP 139/81
[2021-12-19 12:35] VITALS: BP 143/93
[2021-12-19 12:51] VITALS: BP 143/93
== END 2021-12-19 12:50 | disposition home or self-care (01) ==
LOC: ENDO 09:11
PROVIDERS: ATTEND Surgery
DX: D12.4 Benign neoplasm of descending colon (principal); D12.2 Benign neoplasm of ascending colon; K22.70 Barrett's esophagus without dysplasia; K29.50 Unspecified chronic gastritis without bleeding; K59.00 Constipation, unspecified; K44.9 Diaphragmatic hernia without obstruction or gangrene; K64.8 Other hemorrhoids; Z85.038 Personal history of other malignant neoplasm of large intestine; Z80.0 Family history of malignant neoplasm of digestive organs; Z90.49 Acquired absence of other specified parts of digestive tract; Z87.891 Personal history of nicotine dependence; Z79.899 Other long term (current) drug therapy
CPT/HCPCS: 88305